=== PATIENT | male | born 1970 | race Caucasian/White ===

== ENCOUNTER 2016-08-04 22:59 | Observation (INO) | payer OTHER ==
[~2016-08-04] VITALS: Ht 180.3 cm; Wt 105.0 kg
[~2016-08-04 22:59] MED LIST: ASPI81TA82 PO; ATOR40TA PO; PROT40TA PO
[2016-08-04 23:03] VITALS: BP 141/99; PULSE 125; RESP 18; TEMP 98.6; O2SAT 92
[2016-08-04 23:29] LABS: AUTOMATED NEUTROPHIL # 4.9 TH/MM3 (1.8-7.7); BASOPHIL % 0.6 % (0.0-2.0); EOSINOPHIL # 0.1 TH/MM3 (0-0.4); EOSINOPHIL % 0.9 % (0.0-4.0); HEMATOCRIT 40.6 % (39.0-51.0); LYMPH % 16.6 % (9.0-44.0); LYMPHOCYTE # 1.2 TH/MM3 (1.0-4.8); MEAN CORPUSCULAR HEMOGLOBIN 31.3 PG (27.0-34.0); MEAN CORPUSCULAR HGB CONC 33.7 % (32.0-36.0); MONO % 13.6 % (0.0-8.0); NEUT % 68.3 % (16.0-70.0); PLATELET COUNT 196 TH/MM3 (150-450); RED BLOOD COUNT 4.37 MIL/MM3 (4.50-5.90); RED CELL DISTRIBUTION WIDTH 25.5 % (11.6-17.2); WHITE BLOOD COUNT 7.1 TH/MM3 (4.0-11.0)
[2016-08-04] MEDS ORDERED: PANT40TA3 PO (23:29)
[2016-08-04] MEDS ORDERED: SERO300T PO (23:29)
[2016-08-04] MEDS ORDERED: ASPI81CH CHEW (23:29)
[2016-08-04] MEDS ORDERED: ATOR40TA16 PO (23:29)
[2016-08-04] MEDS ORDERED: SODIUM CHLOR 0.9% 1000 ML INJ 1,000 ML IV ONE (23:30)
[2016-08-04] MEDS ORDERED: NITROGLYCERIN 2% OINT 1 GM PACKET TOPICAL ONE (23:30)
[2016-08-04 23:32] LABS: HEMO FLAGS AUTO DIFF
[2016-08-04 23:41] LABS: APTT (PATIENT) 26.7 SEC (24.3-30.1); PROTHROMBIN TIME - PATIENT 10.9 SEC (9.8-11.6)
[2016-08-04 23:42] LABS: ALT (GPT) 67 U/L (12-78); ANION GAP 12 MEQ/L (5-15); AST (GOT) 60 U/L (15-37); BICARBONATE 25.6 MEQ/L (21.0-32.0); BLOOD UREA NITROGEN 4 MG/DL (7-18); CHLORIDE 99 MEQ/L (98-107); GLOMERULAR FILTRATION RATE 83 ML/MIN (>89); MAGNESIUM 2.3 MG/DL (1.5-2.5); POTASSIUM 4.1 MEQ/L (3.5-5.1); SODIUM (NA) 137 MEQ/L (136-145)
[2016-08-04 23:52] LABS: ACETAMINOPHEN LESS THAN 2.0 MCG/ML (10.0-30.0); ALKALINE PHOSPHATASE 78 U/L (45-117); CREATINE KINASE 158 U/L (39-308); TOTAL BILIRUBIN ADULT 0.5 MG/DL (0.2-1.0)
[2016-08-04 23:54] LABS: AMPHETAMINE, URINE NEG (NEG); BARBITURATES, URINE NEG (NEG); COCAINE, URINE NEG (NEG)
[2016-08-05] VITALS (10 sets, daily range): BP systolic 114–150; BP diastolic 64–85; PULSE 72–115; RESP 18–22; TEMP 98–98.4; O2SAT 92–96
[2016-08-05 00:05] LABS: BACTERIA, URINE RARE /hpf; BLOOD, URINE TRACE (NEG); COMMENT (UR) CULT NOT INDICATED; CULTURE IF INDICATED CULT NOT INDICATED; GLUCOSE,URINE NEG (NEG); GRANULAR CAST, URINE 5 /lpf; HYALINE CAST, URINE 62 /lpf (RARE); KETONE, URINE TRACE mg/dL (NEG); MUCUS URINE FEW /lpf (OCC); NITRITE,URINE NEG (NEG); URINE COLOR YELLOW (YELLW/STRAW)
--- NOTE | 2016-08-05 00:18 | PD ---
HPI Chief Complaint: Chest Pain Time Seen by Provider: 23:04 Travel History International Travel<30 days: No Contact w/Intl Traveler<30days: No Traveled to known affect area: No History of Present Illness HPI The patient is a 45 year old male who presents to the [facility] emergency department with a history of being placed under a Lazo act prior to arrival. The patient reports that he took a picture of noose to his ex-. He reports that she works in law enforcement and have the police go out to his house to check on him. The patient reports that this time that he does not have any suicidal or homicidal ideations, however he does report having some chest pain. The patient reports that the chest pain awoke him from sound sleep at 3 AM. The patient reports that he has a history of coronary artery disease and had a prior myocardial infarction that was reportedly silent. He reports he last had a cardiac catheterization 3 years ago which showed evidence of a blockage that was not able to be stented due to the location. He is followed by Dr. Vaughn. He reports that he last had a stress test done 2 years ago. The patient reports that this chest pain is in the center of his chest, lightly over to the left side and radiates into the left arm. He reports that it lasts for a few minutes at a time. He reports that it is coming and going. He reports it is sharp in character. He reports having associated shortness of breath. He reports having nausea but no vomiting. He reports having intermittent diaphoresis. Regarding the patient's history of psychiatric disorder. He reports that he has been diagnosed with depression in the past. He denies taking any medication for this currently. He reports that he has been increasingly depressed recently. He reports that he has been Lazo acted 7 years ago. He denies any prior suicide attempts. On review of systems, the patient denies any recent fevers, cough, congestion,abdominal pain, diarrhea, urinary symptoms, or neurologic symptoms. [facility] Past Medical History Narrative Medical The patient's past medical history is significant for COPD, tobacco abuse, reportedly smoking 3 packs of cigarettes per day, history of diabetes mellitus, hypertension, hyperlipidemia that improved after gastric bypass, history of irritable bowel syndrome, history of coronary artery disease. Asthma: No Anxiety: Yes Depression: Yes Cancer: No Cardiac Catheterization: Yes Cardiovascular Problems: Yes (IN IN THE PAST, ANGINA EPISODES X 2) High Cholesterol: No COPD: Yes Diabetes: Yes (CONTROLLED W/DIET SINCE GASTRIC BYPASS) Patient Takes Glucophage: No Diminished Hearing: No Endocrine: Yes Gastrointestinal Disorders: Yes (HX OF GASTRIC BYPASS 2004) Genitourinary: No Headaches: No Hepatitis: No Hiatal Hernia: No Herniated Disk: Yes Hypertension: Yes Immune Disorder: No Musculoskeletal: Yes (CHRONIC NECK PAIN C4-C5, OSTEOARTHRITIS) Neurologic: Yes (NUMBNESS JAMAAL HANDS, SEIZURE 2 YEARS AGO) Psychiatric: No Reproductive: No Respiratory: Yes (COPD) Migraines: Yes Myocardial Infarction: Yes Seizures: Yes Sleep Apnea: No Thyroid Disease: No Tetanus Vaccination: > 5 Years Influenza Vaccination: Yes ?: Not Past Surgical History Narrative Surgical The patient's past surgical history is significant for a cardiac catheterization , history of gastric bypass. Abdominal Surgery: Yes (GASTRIC BYPASS 2004) AICD: No Joint Replacement: No Pacemaker: No Other Surgery: Yes (GASTRIC BYPASS 2001) Family History Family Myocardial Infarction: Yes Social History Alcohol Use: Yes (6 glasses of wine today) Tobacco Use: Yes (2 to 3 PPD) Substance Use: No Allergies-Medications (Allergen,Severity, Reaction): Coded Allergies: No Known Allergies (Verified , 06/12/15) Reported Meds & Prescriptions Reported Meds & Active Scripts Active Ventolin Hfa 18 GM Inh (Albuterol Sulfate) 90 Mcg/Act Aer 2 Puff INH Q6H PRN Medrol Dosepak (Methylprednisolone) 4 Mg Dspk 4 Mg PO DIRECTED Per Pharmacist direction Reported Pantoprazole (Pantoprazole Sodium) 40 Mg Tab 40 Mg PO DAILY Atorvastatin (Atorvastatin Calcium) 40 Mg Tab 40 Mg PO HS Aspirin 81 Mg Chew 81 Mg CHEW DAILY Seroquel (Quetiapine Fumarate) 300 Mg Tab 300 Mg PO HS Review of Systems Except as stated in HPI: all other systems reviewed are Neg General / Constitutional: No: Fever Eyes: No: Visual changes HENT: No: Headaches Cardiovascular: Positive: Chest Pain or Discomfort, Dyspnea on exertion Respiratory: Positive: Shortness of Breath, No: Cough Gastrointestinal: Positive: Nausea, No: Vomiting, Diarrhea, Abdominal Pain, Changes in Bowel Habits, Indigestion, Loss of Appetite Genitourinary: No: Dysuria Musculoskeletal: No: Pain Skin: No Rash Neurologic: No: Weakness, Focal Abnormalities, Change in Mentation, Slurred Speech, Sensory Disturbance Psychiatric: Positive: Depression, Mood Disorder Endocrine: No: Polydipsia Hematologic/Lymphatic: No: Easy Bruising Physical Exam Narrative General: The patient is a well-developed well-nourished male in no acute distress. Head and Neck exam: Head is normocephalic atraumatic. Eyes: EOMI, pupils are equal round and reactive to light. Nose: Midline septum with pink mucous membranes Mouth: Dentition unremarkable. Moist mucus membranes. Posterior oropharynx is not erythematous. No tonsillar hypertrophy. Uvula midline. Airway patent. Neck: No palpable lymphadenopathy. No nuchal rigidity. No thyromegaly. Cardiovascular: Regular rate and rhythm without murmurs, gallops, or rubs. No pulse deficit to the extremities and simultaneous auscultation and palpation of his radial artery. Lungs: Soft expiratory wheezes audible bilateral lung holley, no rhonchi, no crackles. Abdomen: Soft, without tenderness to palpation in all 4 quadrants of the abdomen. No guarding, rebound, or rigidity. Normal bowel sounds are audible. No tenderness on palpation of McBurney's point. Extremities: No clubbing, cyanosis, or edema. 2+ pulses in all 4 extremities. No calf tenderness on palpation. Back: No spinous process tenderness to palpation. No costovertebral angle tenderness to palpation. Neurologic Exam: Grossly nonfocal. Skin Exam: No rash noted. Intact skin that is warm and dry. Data Data Last Documented VS Vital Signs Date Time Temp Pulse Resp B/P Pulse Ox O2 Delivery O2 Flow Rate FiO2 08/05/16 01:08 83 18 150/79 94 Nasal Cannula 2 08/04/16 23:03 98.6 Orders Electrocardiogram (08/04/16 23:04) Complete Blood Count With Diff (08/04/16 23:04) Comprehensive Metabolic Panel (08/04/16 23:04) Creatine Kinase (Cpk) (08/04/16 23:04) Ckmb (Isoenzyme) Profile (08/04/16 23:04) Troponin I (08/04/16 23:04) B-Type Natriuretic Peptide (08/04/16 23:04) Prothrombin Time / Inr (Pt) (08/04/16 23:04) Act Partial Throm Time (Ptt) (08/04/16 23:04) Lipase (08/04/16 23:04) Urinalysis - C+S If Indicated (08/04/16 23:04) Westergren Sedimentation Rate (08/04/16 23:04) Magnesium (Mg) (08/04/16 23:04) Thyroid Stimulating Hormone (08/04/16 23:04) Chest, Single Ap (08/04/16 23:04) Iv Access Insert/Monitor (08/04/16 23:04) Ecg Monitoring (08/04/16 23:04) Oximetry (08/04/16 23:04) Drug Screen, Random Urine (08/04/16 23:04) Alcohol (Ethanol) (08/04/16 23:04) Salicylates (Aspirin) (08/04/16 23:04) Tylenol (Acetaminophen) (08/04/16 23:04) Nitroglycerin 2% Oint (Nitroglycerin 2% (08/04/16 23:30) Sodium Chlor 0.9% 1000 Ml Inj (Ns 1000 M (08/04/16 23:30) CKMB (08/04/16 23:15) CKMB% (08/04/16 23:15) Ct Pulmonary Angiogram (08/05/16 23:04) Iohexol 350 Inj (Omnipaque 350 Inj) (08/05/16 00:51) Albuterol-Ipratropium Neb (Duoneb Neb) (08/05/16 01:15) Admit Order (Ed Use Only) (08/05/16 01:59) Labs Laboratory Tests Test 08/04/16 08/04/16 23:15 23:35 Erythrocyte Sedimentation Rate 1 mm/hr Prothrombin Time 10.9 SEC Prothromb Time International 1.0 RATIO Ratio Activated Partial 26.7 SEC Thromboplast Time B-Type Natriuretic Peptide 6 PG/ML Salicylates Level 5.5 MG/DL White Blood Count 7.1 TH/MM3 Red Blood Count 4.37 MIL/MM3 Hemoglobin 13.7 GM/DL Hematocrit 40.6 % Mean Corpuscular Volume 93.0 FL Mean Corpuscular Hemoglobin 31.3 PG Mean Corpuscular Hemoglobin 33.7 % Concent Red Cell Distribution Width 25.5 % Platelet Count 196 TH/MM3 Mean Platelet Volume 7.9 FL Neutrophils (%) (Auto) 68.3 % Lymphocytes (%) (Auto) 16.6 % Monocytes (%) (Auto) 13.6 % Eosinophils (%) (Auto) 0.9 % Basophils (%) (Auto) 0.6 % Neutrophils # (Auto) 4.9 TH/MM3 Lymphocytes # (Auto) 1.2 TH/MM3 Monocytes # (Auto) 1.0 TH/MM3 Eosinophils # (Auto) 0.1 TH/MM3 Basophils # (Auto) 0.0 TH/MM3 CBC Comment AUTO DIFF Differential Comment AUTO DIFF CONFIRMED Acanthocytes OCC Sodium Level 137 MEQ/L Potassium Level 4.1 MEQ/L Chloride Level 99 MEQ/L Carbon Dioxide Level 25.6 MEQ/L Anion Gap 12 MEQ/L Blood Urea Nitrogen 4 MG/DL Creatinine 0.98 MG/DL Estimat Glomerular Filtration 83 ML/MIN Rate Random Glucose 132 MG/DL Calcium Level 8.6 MG/DL Magnesium Level 2.3 MG/DL Total Bilirubin 0.5 MG/DL Aspartate Amino Transf 60 U/L (AST/SGOT) Alanine Aminotransferase 67 U/L (ALT/SGPT) Alkaline Phosphatase 78 U/L Total Creatine Kinase 158 U/L Creatine Kinase MB 1.0 NG/ML Troponin I LESS THAN 0.02 NG/ML Total Protein 7.4 GM/DL Albumin 4.4 GM/DL Lipase 199 U/L Thyroid Stimulating Hormone 2.430 uIU/ML 3rd Gen Acetaminophen Level LESS THAN 2.0 MCG/ML Ethyl Alcohol Level 300 MG/DL Urine Opiates Screen NEG Urine Barbiturates Screen NEG Urine Amphetamines Screen NEG Urine Benzodiazepines Screen NEG Urine Cocaine Screen NEG Urine Cannabinoids Screen NEG Urine Color YELLOW Urine Turbidity HAZY Urine pH 5.0 Urine Specific [place] 1.021 Urine Protein 30 mg/dL Urine Glucose (UA) NEG mg/dL Urine Ketones TRACE mg/dL Urine Occult Blood TRACE Urine Nitrite NEG Urine Bilirubin NEG Urine Urobilinogen LESS THAN 2.0 MG/DL Urine Leukocyte Esterase NEG Urine RBC 1 /hpf Urine WBC LESS THAN 1 /hpf Urine Bacteria RARE /hpf Urine Hyaline Casts 62 /lpf Urine Granular Casts 5 /lpf Urine Mucus FEW /lpf Microscopic Urinalysis Comment CULT NOT INDICATED MDM Medical Decision Making Medical Screen Exam Complete: Yes Emergency Medical Condition: Yes Medical Record Reviewed: Yes Interpretation(s) Last Impressions Lower Extremity Ultrasound 08/05/16 0000 Signed Impressions: Service Date/Time: Friday, August 05, 2016 10:45 - CONCLUSION: Normal examination. Alberto Loyola MD Chest X-Ray 08/04/16 [id number] Signed Impressions: Service Date/Time: Thursday, August 04, 2016 23:41 - CONCLUSION: 1. No acute cardiopulmonary disease. Ousmane Renteria MD Differential Diagnosis Acute coronary syndrome, versus acid reflux, versus costochondritis, versus pleurisy, versus pneumonia, versus pneumothorax, versus pulmonary embolism Narrative Course During the course of the patients emergency department visit, the patients history, examination, and differential diagnosis were reviewed with the patient. The patient had IV access obtained and blood work sent for analysis. The patient was placed on a security monitor with oximetry and blood pressure monitoring. An EKG was done on arrival. The patient's EKG reveals a sinus tachycardia with a heart rate of 137, left anterior fascicular block, no acute ST segment elevation. QRS duration is 82 ms, QTC is 378 ms. The patient was initially provided measure) 1 inch the chest wall, normal saline 1 L IV fluid bolus. The patient was given a DuoNeb 1. The patient was given 162 mg of aspirin by mouth 1 prior to arrival by ambulance services. The patients laboratory studies were reviewed and remarkable for a white count of 7.1, hemoglobin 13.7, platelets 196 with 13.6 monocytes, sedimentation rate is 1, CMP is remarkable for a glucose of 132, AST 60, CPK 158, troponin I less than 0.02, lipase 199, TSH 2.43, BNP is 6, PT PTT within normal limits. Urinalysis shows trace ketones, trace occult blood, 1 rbc, less than 1 wbc. Alcohol level is 300 Radiology studies were reviewed and remarkable for a chest x-ray that shows no acute abnormality. Initially, the plan was to admit the patient to the chest pain center for rule out serial cardiac enzyme protocol and consideration of stress testing as it has been approximately 2 years since his last stress test, however the patient was noted to have his pulse oximetry dipped down into the upper 80s while on supplemental oxygen. The patient denies using supplemental oxygen at home. When his supplemental oxygen was removed the patient's O2 saturation went down to 86%. The patient will be admitted to the medical service for continued evaluation and treatment. The patient's chest pain may be partly related to a COPD exacerbation. The patient was given Solu-Medrol 125 mg IV, an additional DuoNeb. He was continued on 3 L nasal cannula O2. The patients results were discussed with the patient, including the plan of care. I explained that further testing and/ or monitoring is indicated based on the patients history, examination, and/ or laboratory findings. Therefore, I recommended admission for additional evaluation. The patient expressed understanding and was agreeable with this plan. The patient was admitted to the hospital in stable condition and [facility] Physician Communication Physician Communication The patient's case was discussed with Alberto Harvey who did agree to admit the patient for further evaluation and treatment at this time. Diagnosis Primary Impression: Chest pain, rule out acute myocardial infarction Additional Impressions: COPD exacerbation Hypoxemia Admitting Information Admitting Physician Requests: Admit Scripts Albuterol 18 GM Inh (Ventolin Hfa 18 GM Inh)90 Mcg/Act Aer2 Puff INH Q6H PRN ( SHORTNESS OF BREATH) #1 INHALER Ref 0 Prov:Chaitanya Lynn MD 08/05/16 Methylprednisolone Dosepak (Medrol Dosepak)4 Mg Dspk4 Mg PO DIRECTED #1 DSPK Ref 0 Per Pharmacist direction Prov:Chaitanya Lynn MD 08/05/16 Faiza Swenson MD August 05, 2016 00:18
--- NOTE | 2016-08-05 00:19 | RADRPT ---
EXAM DATE/TIME: 08/04/2016 23:41 [facility] COMPARISON: CHEST SINGLE AP, June 12, 2015, 22:51. INDICATIONS : Chest pain. MEDICAL HISTORY : None. SURGICAL HISTORY : None. ENCOUNTER: Initial ACUITY: 1 day PAIN SCORE: 7/10 LOCATION: Bilateral chest FINDINGS: A single view of the chest demonstrates the lungs to be symmetrically aerated without evidence of mas s, infiltrate or effusion. The cardiomediastinal contours are unremarkable. Osseous structures are intact. CONCLUSION: 1. No acute cardiopulmonary disease. Ousmane Renteria MD on August 05, 2016 at 0:17 Board Certified Radiologist. This report was verified electronically.
[2016-08-05] MEDS ORDERED: IOHEXOL 350 MG/ML 10 ML VIAL (for RAD DIAG) IV ONE (00:51)
[2016-08-05] MEDS ORDERED: RESP: ALBUTEROL 2.5 MG/IPRATROPIUM 0.5 MG NEB (SCH) NEB ONE (01:15)
[2016-08-05 01:43] LABS: ACANTHOCYTES OCC (NORMAL); SCAN/DIFF AUTO DIFF CONFIRMED
--- NOTE | 2016-08-05 01:44 | RADRPT ---
EXAM DATE/TIME: 08/05/2016 00:48 [facility] COMPARISON: No previous studies available for comparison. INDICATIONS : Chest pain and short of breath starting this morning. IV CONTRAST: 75 cc Omnipaque 350 (iohexol) IV RADIATION DOSE: 23.32 CTDIvol (mGy) MEDICAL HISTORY : Seizures. Myocardial infarction. Hypertension. SURGICAL HISTORY : Gastric bypass. Cardiac catherization. ENCOUNTER: Initial ACUITY: 1 day PAIN SCALE: 7/10 LOCATION: chest TECHNIQUE: Volumetric scanning of the chest was performed using a pulmonary embolism protocol MIP images were re constructed. Using automated exposure control and adjustment of the mA and/or kV according to patien t size, radiation dose was kept as low as reasonably achievable to obtain optimal diagnostic quality images. FINDINGS: Examination of the pulmonary vasculature demonstrates an equivocal abnormality involving the left low er lobe and lingular pulmonary artery. The contrast bolus is suboptimal limiting evaluation. No large central embolism is identified. Examination of the lung holley demonstrates no evidence of pulmonary nodule. No pleural fluid is iden tified. Examination of the mediastinum demonstrates no abnormally enlarged lymph nodes by CT criteria . No axillary or hilar abnormalities are identified. Coronary artery calcifications are present. Ther e is a nodule in the left adrenal gland likely reflecting adenoma measuring 10 mm. There is decreased density of the liver with respect to the spleen compatible with fatty infiltration. The spleen is un remarkable. A staple line is present in the stomach. CONCLUSION: 1. Limited evaluation secondary to the contrast bolus. There is equivocal segmental thrombus involvin g the lingula and left lower lobe pulmonary artery. Pulmonary embolism is not excluded. Ousmane Renteria MD on August 05, 2016 at 1:33 Board Certified Radiologist. This report was verified electronically.
[2016-08-05] MEDS ORDERED: methylPREDNISolone SOD SUCC 125 MG/2 ML VIAL IV PUSH ONE (02:30)
[2016-08-05] MEDS: RESP: ALBUTEROL 2.5 MG/IPRATROPIUM 0.5 MG NEB (SCH) INH ×5 (03:07→15:25)
[2016-08-05] MEDS ORDERED: RESP: ALBUTEROL 2.5 MG/3 ML NEB (PRN) INH (03:45)
[2016-08-05] MEDS ORDERED: cloNIDine HCL 0.1 MG TAB PO PRN (03:45)
[2016-08-05] MEDS ORDERED: SODIUM CHLORIDE 0.9% FLUSH 10 ML FLUSH IV FLUSH PRN (03:45)
[2016-08-05] MEDS ORDERED: LORazepam 2 MG/ML VIAL IV PUSH PRN ×4 (03:45)
[2016-08-05] MEDS ORDERED: NITROGLYCERIN 0.4 MG SL 25 TABS/BTL SL PRN (03:45)
[2016-08-05] MEDS ORDERED: methylPREDNISolone SOD SUCC 125 MG/2 ML VIAL IVP SCH (03:45)
[2016-08-05] MEDS ORDERED: FLUMAZENIL 0.5 MG/5 ML VIAL IV PUSH PRN (03:45)
[2016-08-05] MEDS ORDERED: ACETAMINOPHEN 500 MG CPLT PO PRN (03:45)
[2016-08-05] MEDS ORDERED: ENOXAPARIN SODIUM 40 MG/0.4 ML SYRINGE SQ SCH (05:00)
[2016-08-05] MEDS: NITROGLYCERIN 2% OINT 1 GM PACKET TOP SCH ×2 (05:48→11:07)
[2016-08-05] MEDS ORDERED: SODIUM CHLORIDE 0.9% FLUSH 10 ML FLUSH IV FLUSH SCH (09:00)
[2016-08-05] MEDS ORDERED: THIAMINE HCL 100 MG TAB PO SCH (09:00)
[2016-08-05] MEDS ORDERED: FOLIC ACID 1 MG TAB PO SCH (09:00)
[2016-08-05] MEDS ORDERED: FAMOTIDINE 20 MG TAB PO SCH (09:00)
[2016-08-05] MEDS ORDERED: ASPIRIN 325 MG TAB PO SCH (09:00)
[2016-08-05] MEDS ORDERED: MULTIVITAMINS/MINERALS THERAPEUTIC TAB PO SCH (09:00)
--- NOTE | 2016-08-05 09:14 | MH ---
cc: GARRY MAN MD DATE OF ADMISSION: 08/05/2016 DATE OF : 1970 CHIEF COMPLAINT Chest pain, Lazo Act for possible suicidal or homicidal ideation. TRAVEL IN THE LAST 30 DAYS None. HISTORY OF PRESENT ILLNESS This is a 45-year-old male who began having chest pain this past a.m. According to the record and the patient he was Lazo Act'd upon arrival to the hospital. He took a picture of a noose and sent it to his estranged . They have been for approximately two weeks. The patient does state that the marriage has had a [address] but he has been to her for 22 years. He does have three grown children with his present . The patient states that he has not been eating in the past week but he is drinking daily. He is under increased stress and awoke at approximately 3:00 a.m. with midsternal chest pain. The chest pain radiates into the left arm and into his back. He states that the pain is a sharp stabbing pain and is worse with inspiration. The patient does have known COPD with cough. He is a daily smoker. At the time of his chest pain the patient did note some shortness of breath but denies any nausea or vomiting. No diaphoresis. The patient denies any headache. No recent weight gain or weight loss. Denies any dysuria or any problems with his kidneys or bowels. No diarrhea or constipation. He does state that he has not had a bowel movement in several days but has not been eating well. On admission to the hospital the patient was given Ativan IV due to his shakiness. He currently is calm and is able to answer simple questions appropriately. According to the record the patient has had coronary artery disease, multiple heart caths and stress tests between 2 and 3 years ago. PAST MEDICAL HISTORY 1. Coronary artery disease. 2. OH in the past. 3. Previous angina episodes. 4. Anxiety. 5. Depression. 6. COPD. 7. Diabetes mellitus type 2. 8. Herniated disc. 9. Hypertension. 10. Osteoarthritis. 11. Chronic neck pain, C4-C5. 12. Seizures. PAST SURGICAL HISTORY 1. Gastric bypass. 2. Cardiac caths, multiple. SOCIAL HISTORY The patient is currently from his for approximately two weeks. He is living in the home. He has three grown children. Positive for tobacco use, 2-3 packs a day. Alcohol use more pertinent recently and had been drinking wine when he came into the hospital. Denies any illicit drug use. ALLERGIES No known. MEDICATIONS Medications reported: 1. Pantoprazole. 2. Atorvastatin. 3. Aspirin. 4. Seroquel. FAMILY HISTORY Heart disease. REVIEW OF SYSTEMS A 12-point review was done. Positives are included in the HPI which include chest pain, COPD, cough, some nausea at the time of the chest pain, ETO abuse, shortness of breath, shakiness possibly secondary to the alcohol, increased stress disorders. Otherwise systems are negative or unremarkable. PHYSICAL EXAMINATION VITAL SIGNS: Temperature 98.6, pulse 78, respirations 22, blood pressure 125/75. On arrival at the emergency room pulse rate was 125, respirations 18, blood pressure 141/99, O2 sat was 92. The patient was placed on 2 liters nasal cannula and is now on 3 liters. GENERAL: A well-nourished white male who looks older than his stated age resting in the bed. He is cooperative and answering questions appropriately. SKIN: [place]. Mucous membranes warm and dry. HEENT: Atraumatic, normocephalic. PERRLA at 3 mm. [place] mucous membranes. NECK: Supple. Midline trachea. HEART: Heart sounds S1, S2, regular rate and rhythm. No murmurs, rubs or gallops. He has no pedal edema and his pulses are intact bilaterally. PULMONARY: He does have some diminished breath sounds anteriorly and posteriorly but no wheezes or rhonchi. He does have some decreased breath sounds more so on the left lower lobe. ABDOMEN: Round, soft, nontender, nondistended. Active bowel sounds in all four quadrants. EXTREMITIES: He moves his extremities with purpose. He has equal hand photographic spotter. No clubbing. No cyanosis. NEUROLOGIC: He is awake, answers questions appropriately. Speech is clear. PSYCHIATRIC: Current mood is flat affect but appropriate to questions. LABORATORY WBC count 7.1, RBC 4.37, hemoglobin 13.7, hematocrit 40.6, platelet count 196, RDW 25.5, abnormal monocyte percentage count 13.6. Sed rate is 1. INR is 1. Sodium 137, potassium 4.1, chloride 99, carbon dioxide 25.6, amnion gap 12, BUN 4, creatinine 0.98, GFR 83, random glucose 132, AST 60, troponin less than 0.2 x2, BNP 6, TSH 2.430, lipase 199, albumin 4.4, total protein 7.4. Urine is yellow, hazy, pH 5, specific gravity 1.021, protein 30, negative glucose, trace ketones, trace occult blood. Negative for nitrites, bilirubin and leukocyte esterase. IMAGING Chest x-ray: No acute pulmonary cardiopulmonary disease. CT angiography shows limited evaluation secondary to contrast bolus, equivocal segmental thrombus involving the left lower lobe pulmonary artery. Pulmonary embolism cannot be excluded. ASSESSMENT 1. Chest pain, rule out OH/cardiac event, possible pulmonary embolism. 2. Tachycardia. 3. Alcohol abuse and tobacco abuse and dependence. 4. Depression and anxiety with possible suicidal or homicidal ideations. 5. COPD. 6. Diabetes mellitus type 2, with mild uncontrolled blood sugars. PLAN 1. Admit initially for observation. 2. Vital signs q.4h. and as warranted. 3. The patient will have constant ECG monitoring for his erratic heart rate. This tachycardia could be secondary to his stress versus any cardiac event going on with him. 4. The patient is on Lazo Act so he has one-on-one observation personnel with him. He is being evaluated per psychiatry this a.m. 5. On admission the patient had original labs drawn which included CT pulmonary angiogram. Nitroglycerin one inch was placed on his chest. He received methylprednisolone 125 mg IV and DuoNeb treatments. The patient was given Ativan IV x1. PRN blood pressure medication. Catapres p.o. to be given. The patient was placed on multivitamins. 6. Accu-Cheks a.c. and h.s. 7. Neuro-checks q.4h. 8. Seizure precautions/alcohol withdrawal protocol has been initiated. 9. The patient is now n.p.o. except for meds. 10. Cardiology has been consulted for their expert opinion for possible further testing. 11. The patient is full code, full aggressive care. 12. We will follow his needs. Dictated by: KARYN Faulkner MD VAZQUEZ Sandoval/ANTONY /8:14 AM /9:14 AM pt is seen & Examined d/w PT ariella Fuentes d/w Dr schuster , ? CT chest finding , clinical suspicion for PE is low Venous doppler Neg for DVT No need for Anticoagulation No further cardiac w/u rec by card counselled pt against smoking cigarettes & drinking Alcohol Risks of smoking were d/w in detail, Pt verbalized understanding cont current tx psych input appreciated /BA is lifted resume feeding d/c home later today see orders see MRS f/u pcp & card d/w RN AMRITAD
[2016-08-05] MEDS ORDERED: ENOXAPARIN SODIUM 60 MG/0.6 ML SYRINGE SQ ONE (10:15)
[2016-08-05] MEDS: methylPREDNISolone SOD SUCC 125 MG/2 ML VIAL IVP SCH ×2 (11:07→14:00)
--- NOTE | 2016-08-05 11:07 | RADRPT ---
EXAM DATE/TIME: 08/05/2016 10:45 [facility] COMPARISON: No previous studies available for comparison. INDICATIONS : Shortness of breath. MEDICAL HISTORY : Seizures. Myocardial infarction. Hypertension. SURGICAL HISTORY : Gastric bypass. Cardiac catherization. ENCOUNTER: Initial ACUITY: 1 day PAIN SCORE: 6/10 LOCATION: Bilateral leg. TECHNIQUE: Venous ultrasound of the left and right leg was performed from the inguinal ligament to the proximal calf. Real-time, color Doppler and spectral tracing, compression and augmentation techniques were us ed. FINDINGS: RIGHT LEG: There is normal compressibility of the deep venous system from the inguinal region to the proximal ca lf. No echogenic clot is seen in the lumen of the common femoral, femoral, popliteal, and posterior tibial veins. There is a normal response of the venous system to proximal and distal augmentation an d respiration. LEFT LEG: There is normal compressibility of the deep venous system from the inguinal region to the proximal ca lf. No echogenic clot is seen in the lumen of the common femoral, femoral, popliteal, and posterior tibial veins. There is a normal response of the venous system to proximal and distal augmentation an d respiration. CONCLUSION: Normal examination. Alberto Loyola MD on August 05, 2016 at 11:04 Board Certified Radiologist. This report was verified electronically.
--- NOTE | 2016-08-05 11:47 | MB ---
cc: ARTHUR RAE M.D. DATE OF CONSULTATION: 08/05/2016 REASON FOR CONSULTATION Evaluation of chest pain. HISTORY OF PRESENT ILLNESS Colin Espinosa is a 45-year-old man followed by Dr. Acevedo of my practice. The patient has a longstanding history of a three pack per day smoking with COPD and coronary disease, is Lazo Acted and along the way complains of chest pain. The patient has been having marital problems and he came in for possible suicide or homicidal ideation, however, he has been having sharp pain in his chest, worse with inspiration. It is in his back, started between his scapula, position does not affect it. The pain is definitely worse with deep breath and it is sharp. Denies any leg pain or swelling. Denies any long car rides or other risk factors for DVT. He has had a CTA that is now indeterminate for pulmonary embolism. PAST MEDICAL HISTORY Past medical history includes: 1. Coronary artery disease. 2. He had a previous catheterization January 28, 2013 showing a stenosis of the proximal mid LAD and felt to be about 50% by ultrasound. 3. He has had a gastric bypass in 2005. 4. He has had a loop recorder implantation. 5. Past alcohol issues. 6. COPD. 7. Depression, 8. Hyperlipidemia. 9. Hypertension. 10. Sleep apnea. ALLERGIES None known. FAMILY HISTORY Positive for heart disease in his brother who had a heart attack and is . There is also a history of heart disease in the father and mother. SOCIAL HISTORY Currently smoking three packs a day. REVIEW OF SYSTEMS He is depressed. PHYSICAL EXAMINATION GENERAL: Physical exam reveals an obese white male, in no acute distress. VITAL SIGNS: Charted. HEENT: Exam unremarkable. NECK: No JVD, no bruits. CHEST: Chest shows diminished breath sounds with a few scattered wheezes. CARDIAC: S1-S2, regular rate and rhythm. No murmurs, gallops. ABDOMEN: Soft, nontender. No masses or splenomegaly. EXTREMITIES: No clubbing, cyanosis or edema. Pulses are intact. No calf pain or swelling to suggest DVT. EKG Shows sinus tachycardia, left axis deviation, poor R-wave progression, low voltage throughout. DATA Troponins x2 are negative. CTA results are charted. Creatinine is 0.98. TSH is normal. Hematocrit 40.6. IMPRESSION/PLAN A 45-year-old male with sharp pleuritic chest pain. This is compatible with a diagnosis of possible pulmonary embolism. The problem is his CTA is inconclusive. I have spoken with Dr. Lynn and I just now spoke to Dr. Loyola. A VQ scan is likely to be indeterminate or low prob and will not particularly be helpful here, after discussing this with Dr. Loyola, it is felt the best approach might be to get a venous Doppler study, if this is positive, then go ahead and treat him as a pulmonary embolism. He said a pulmonary angiogram would likely be inconclusive as well, that would be another option, but we decided against that. Plan therefore is to increase his Lovenox to full strength 100 mg q. 12 hours and get venous Doppler studies. If these are positive then go ahead and treat this as a pulmonary embolism. If these are negative then we are most likely dealing with musculoskeletal chest pain. MD CLARK Joel/KIMO /10:18 AM /11:25 AM
--- NOTE | 2016-08-05 13:11 | PD.CONS ---
Provisional Diagnosis Admission Date August 05, 2016 at 02:01 [place] I. Alcohol-induced mood disorder, alcohol use disorder, history of depression [place] II. Deferred [place] III. COPD, DM, chronic pain, NE, seizures [place] IV. Conflict with [place] V. 55 History of Present Illness Service Psychiatry Consult Requested By Primary Care Physician Gladys SO The patient is a 45-year-old man, domiciled alone in [place], employed, , but , psychiatric history of depression, alcohol- induced mood disorder, alcohol use disorder, 1 previous psychiatric hospitalizations, no previous suicidal attempts, he is on Seroquel 200 mg prescribed by PCP for insomnia, medical history of COPD, DM, HTN, chronic pain, previous MIs, who presents to the [facility] emergency department with a history of being placed under a Lazo act prior to arrival. The patient reports that he took a picture of noose to his ex-. He reports that she works in law enforcement and have the police go out to his house to check on him. The patient reports that this time that he does not have any suicidal or homicidal ideations, however he does report having some chest pain. Patient stated that he was drunk at the moment of the Lazo act. BAL was 300. At the moment of psychiatric evaluation patient reports good mood, he denies depressive symptoms, he denies anxiety, he denies perri or psychosis. Patient is logical, coherent and relevant. Clinically sober. Denies suicidal or homicidal ideation, denies visual and auditory hallucinations. Patient is fully oriented 3, no attention deficit, no fluctuation of consciousness, no agitation or aggressive behavior reported or observed. He reports the use of alcohol, about a bottle of wine, denies the use of illicit drugs. Review of Systems Constitutional: DENIES: Diaphoretic episodes, Fatigue, Fever, Weight gain, Weight loss, Chills, Dizziness, Change in appetite, Night Sweats Endocrine: DENIES: Heat/cold intolerance, Polydipsia, Polyuria, Polyphagia Eyes: DENIES: Blurred vision, Diplopia, Eye inflammation, Eye pain, Vision loss , Photosensitivity, Double Vision Ears, nose, mouth, throat: DENIES: Tinnitus, Hearing loss, Vertigo, Nasal discharge, Oral lesions, Throat pain, Hoarseness, Ear Pain, Running Nose, Epistaxis, Sinus Pain, Toothache, Odynophagia Respiratory: DENIES: Apneas, Cough, Snoring, Wheezing, Hemoptysis, Sputum production, Shortness of breath Cardiovascular: COMPLAINS OF: Chest pain, DENIES: Palpitations, Syncope, Dyspnea on Exertion, PND, Lower Extremity Edema, Orthopnea, Claudication Gastrointestinal: DENIES: Abdominal pain, Black stools, Bloody stools, Constipation, Diarrhea, Nausea, Vomiting, Difficulty Swallowing, Anorexia Genitourinary: DENIES: Sexual dysfunction, Urinary frequency, Urinary incontinence, Urgency, Hematuria, Dysuria, Nocturia, Penile Discharge, Testicular Pain, Testicular Swelling Integumentary: DENIES: Abnormal pigmentation, Nail changes, Pruritus, Rash Hematologic/lymphatic: DENIES: Bruising, Lymphadenopathy Immunologic/allergic: DENIES: Eczema, Urticaria Neurologic: DENIES: Abnormal gait, Headache, Localized weakness, Paresthesias, Seizures, Speech Problems, Tremor, Poor Balance Past Family Social History Coded Allergies: No Known Allergies (Verified , 06/12/15) Reported Medications Pantoprazole 40 Mg Tab40 Mg PO DAILY #30 TAB Ref 0 08/04/16 Atorvastatin 40 Mg Tab40 Mg PO HS #30 TAB Ref 0 08/04/16 Aspirin 81 Mg Chew81 Mg CHEW DAILY Ref 0 08/04/16 Quetiapine (Seroquel)300 Mg Qzd250 Mg PO HS #30 TAB Ref 0 08/04/16 Current Medications Medications (Trade) Dose Ordered Sig/Deana Route Start Time Stop Time Status Last Admin (NS Flush) 2 ml BID IV FLUSH 08/05/16 09:00 08/05/16 11:09 (NS Flush) 2 ml UNSCH PRN IV FLUSH 08/05/16 03:45 (Aspirin) 325 mg DAILY PO 08/05/16 09:00 08/05/16 11:09 (Nitroglycerin 2% Oint) 1 inch Q6HR TOP 08/05/16 06:00 08/05/16 11:07 (Nitrostat Sl) 0.4 mg Q5M PRN SL 08/05/16 03:45 (Tylenol) 500 mg Q4H PRN PO 08/05/16 03:45 08/05/16 11:56 (Pepcid) 20 mg BID PO 08/05/16 09:00 08/05/16 11:08 (Folate) 1 mg DAILY PO 08/05/16 09:00 08/10/16 08:59 08/05/16 11:09 (Vitamin B1) 100 mg DAILY PO 08/05/16 09:00 08/05/16 11:07 (Theragran M Tab) 1 tab DAILY PO 08/05/16 09:00 08/10/16 08:59 08/05/16 11:08 (Catapres) 0.1 mg Q8HR PRN PO 08/05/16 03:45 (Romazicon Inj) 0.2 mg Q1M PRN IV PUSH 08/05/16 03:45 (Ativan Inj) 1 mg Q4H PRN IV PUSH 08/05/16 03:45 08/05/16 06:03 (Ativan Inj) 2 mg Q2H PRN IV PUSH 08/05/16 03:45 (Ativan Inj) 2 mg Q1H PRN IV PUSH 08/05/16 03:45 (Ativan Inj) 2 mg Q15M PRN IV PUSH 08/05/16 03:45 (SoluMEDROL INJ) 60 mg Q6H IVP 08/05/16 08:00 08/05/16 11:07 (Lovenox Inj) 100 mg Q12H SQ 08/05/16 23:00 Family History Patient denies psychiatric family history Social History Patient was born and raised in [place], he lives in [place] alone, is employed in [employer], but , his highest level of education is high school Patient's Strengths (min. 2) Verbal communication Physical Exam A physical exam patient does not present any EPS, no tremors, no withdrawal symptoms, no stiffness, no psychomotor agitation or retardation, no gait disturbances Vital Signs Vital Signs Date Time Temp Pulse Resp B/P Pulse Ox O2 Delivery O2 Flow Rate FiO2 08/05/16 09:28 98.0 113 21 146/73 96 08/05/16 08:30 21 08/05/16 03:57 Nasal Cannula 3.00 Lab Results BAL 300, toxicology negative Mental Status Examination Appearance man, [facility], good hygiene, age appearing,, cooperative Speech: Unremarkable Orientation: x3 Memory: Unremarkable Thought Process: Logical Thought Content: Unremarkable Hallucination Type: None Suicidal Ideation: No Homicidal Ideation: No Previous Homicide Attempts: No Judgment: WNL Affect: Good Affect if Inappropriate: Flat Mood: Appropriate Motor Activity: Normal gait Assessment & Plan Problem List: (1) Alcohol abuse with alcohol-induced mood disorder Assessment & Plan: On psychiatric evaluation today the patient does not present any concerning, acute, significant or objective or subjective symptomatology of depression, anxiety, perri or psychosis. Patient denies suicidal or homicidal ideation, he denies visual and auditory hallucinations. Patient is logical, coherent and relevant in his conversation. Oriented 3, no gross cognitive impairment present. Recent suicidal statements seems to be more related with marital conflicts, manipulative behavior, aggravated by acute alcohol intoxication. Patient is increase over. Patient does not meet criteria for psychiatric admission at this moment. She will benefit of an acute detox with comprehensive rehabilitation program. Extensive psycho education, support and motivation provided. CIWA protocol recommended. We'll continue Seroquel 200 mg at night as prescribed outpatient. Lazo act will be lifted. ICD Code: F10.14 Assessment & Plan Estimated LOS: Abdi Molina MD August 05, 2016 13:11
--- NOTE | 2016-08-05 14:16 | HHI.PR ---
Objective Objective Results - Vital Signs Date Time Temp Pulse Resp B/P Pulse Ox O2 Delivery O2 Flow Rate FiO2 08/05/16 13:26 98.4 89 18 130/74 95 08/05/16 09:28 98.0 113 21 146/73 96 08/05/16 08:30 92 21 08/05/16 06:15 78 22 125/75 95 08/05/16 03:57 95 Nasal Cannula 3.00 08/05/16 03:26 87 18 116/68 95 Nasal Cannula 3.5 08/05/16 02:04 115 18 114/64 92 Nasal Cannula 2 08/05/16 01:08 83 18 150/79 94 Nasal Cannula 2 08/04/16 23:03 98.6 125 18 141/99 92 Result Diagram: 08/04/16231408/04/162314 Other Results Laboratory Tests Test 08/04/16 08/04/16 08/05/16 08/05/16 23:15 23:35 05:10 09:56 Erythrocyte Sedimentation Rate 1 Prothrombin Time 10.9 Prothromb Time International 1.0 Ratio Activated Partial 26.7 Thromboplast Time B-Type Natriuretic Peptide 6 Salicylates Level 5.5 White Blood Count 7.1 Red Blood Count 4.37 Hemoglobin 13.7 Hematocrit 40.6 Mean Corpuscular Volume 93.0 Mean Corpuscular Hemoglobin 31.3 Mean Corpuscular Hemoglobin 33.7 Concent Red Cell Distribution Width 25.5 Platelet Count 196 Mean Platelet Volume 7.9 Neutrophils (%) (Auto) 68.3 Lymphocytes (%) (Auto) 16.6 Monocytes (%) (Auto) 13.6 Eosinophils (%) (Auto) 0.9 Basophils (%) (Auto) 0.6 Neutrophils # (Auto) 4.9 Lymphocytes # (Auto) 1.2 Monocytes # (Auto) 1.0 Eosinophils # (Auto) 0.1 Basophils # (Auto) 0.0 CBC Comment AUTO DIFF Differential Comment AUTO DIFF CONFIRMED Acanthocytes OCC Sodium Level 137 Potassium Level 4.1 Chloride Level 99 Carbon Dioxide Level 25.6 Anion Gap 12 Blood Urea Nitrogen 4 Creatinine 0.98 Estimat Glomerular Filtration 83 Rate Random Glucose 132 Calcium Level 8.6 Magnesium Level 2.3 Total Bilirubin 0.5 Aspartate Amino Transf 60 (AST/SGOT) Alanine Aminotransferase 67 (ALT/SGPT) Alkaline Phosphatase 78 Total Creatine Kinase 158 Creatine Kinase MB 1.0 Troponin I LESS THAN 0.02 LESS THAN 0.02 LESS THAN 0.02 Total Protein 7.4 Albumin 4.4 Lipase 199 Thyroid Stimulating Hormone 2.430 3rd Gen Acetaminophen Level LESS THAN 2.0 Ethyl Alcohol Level 300 Urine Opiates Screen NEG Urine Barbiturates Screen NEG Urine Amphetamines Screen NEG Urine Benzodiazepines Screen NEG Urine Cocaine Screen NEG Urine Cannabinoids Screen NEG Urine Color YELLOW Urine Turbidity HAZY Urine pH 5.0 Urine Specific Boyce 1.021 Urine Protein 30 Urine Glucose (UA) NEG Urine Ketones TRACE Urine Occult Blood TRACE Urine Nitrite NEG Urine Bilirubin NEG Urine Urobilinogen LESS THAN 2.0 Urine Leukocyte Esterase NEG Urine RBC 1 Urine WBC LESS THAN 1 Urine Bacteria RARE Urine Hyaline Casts 62 Urine Granular Casts 5 Urine Mucus FEW Microscopic Urinalysis Comment CULT NOT INDICATED Physical Exam Physical Exam pt is seen & Examined d/w PT ariella Fuentes d/w Dr schuster , ? CT chest finding , clinical suspicion for PE is low Venous doppler Neg for DVT No need for Anticoagulation No further cardiac w/u rec by card counselled pt against smoking cigarettes & drinking Alcohol Risks of smoking were d/w in detail, Pt verbalized understanding cont current tx psych input appreciated /BA is lifted resume feeding d/c home later today see orders see MRS f/u pcp & card d/w Chaitanya Banerjee MD August 05, 2016 14:16
[2016-08-05] MEDS ORDERED: VENTAER INH (14:24)
[2016-08-05] MEDS ORDERED: MEDR4PAK PO (14:24)
--- NOTE | 2016-08-05 16:39 | EKG ---
Date Performed: 08/05/2016 Time Performed: 09:49:56 PTAGE: 45 years EKG: SINUS TACHYCARDIA LOW QRS VOLTAGE ANTERIOR MYOCARDIAL INFARCTION POSSIBLE INFERIOR MYOCARDI AL INFARCTION ABNORMAL ECG PREVIOUS TRACING : 08/05/2016 05.07 No significant change from previous tracing noted. DOCTOR: Yuriy Maldonado Interpretating Date/Time 08/05/2016 16:37:49
--- NOTE | 2016-08-05 18:26 | EKG ---
Date Performed: 08/05/2016 Time Performed: 12:18:49 PTAGE: 45 years EKG: Sinus rhythm LOW QRS VOLTAGE POSSIBLE ANTERIOR MYOCARDIAL INFARCTION POSSIBLE INFERIOR MYOCARDIAL INFARCTION ABNO RMAL ECG NO PREVIOUS TRACING DOCTOR: Yuriy Maldonado Interpretating Date/Time 08/05/2016 18:24:31
--- NOTE | 2016-08-05 22:44 | EKG ---
Date Performed: 08/05/2016 Time Performed: 05:07:24 PTAGE: 45 years EKG: SINUS TACHYCARDIA LOW QRS VOLTAGE IN PRECORDIAL LEADS POSSIBLE ANTERIOR MYOCARDIAL INFARCTI ON INFERIOR MYOCARDIAL INFARCTION ABNORMAL ECG PREVIOUS TRACING : 08/04/2016 22.57 Compared to prior tracing no significant change DOCTOR: Isaiah Rubio Interpretating Date/Time 08/05/2016 22:43:38
--- NOTE | 2016-08-05 22:50 | EKG ---
Date Performed: 08/04/2016 Time Performed: 22:57:28 PTAGE: 45 years EKG: SINUS TACHYCARDIA LOW QRS VOLTAGE IN PRECORDIAL LEADS LEFT ANTERIOR FASCICULAR BLOCK POSSIB LE ANTERIOR MYOCARDIAL INFARCTION ABNORMAL ECG INTERPRETATION BASED ON A DEFAULT AGE OF 40 YEARS PREVIOUS TRACING : 06/13/2015 04.46 Compared to the previous tracing sinus tachycardia is new DOCTOR: Isaiah Rubio Interpretating Date/Time 08/05/2016 22:48:01
[2016-08-05] MEDS ORDERED: ENOXAPARIN SODIUM 100 MG/ML SYRINGE SQ SCH (23:00)
== END 2016-08-05 17:12 | disposition home or self-care (01) ==
LOC: NEPE 22:59 → NEDA 08-05 02:01 → NEPHCDU 08-05 05:32
PROVIDERS: ADMIT Specialist; ATTEND Specialist
DX: R07.9 Chest pain, unspecified (principal); I25.10 Atherosclerotic heart disease of native coronary artery without angina pectoris; I25.2 Old myocardial infarction; R06.02 Shortness of breath; R11.0 Nausea; R61 Generalized hyperhidrosis; Z98.84 Bariatric surgery status; K58.9 Irritable bowel syndrome, unspecified; J44.1 Chronic obstructive pulmonary disease with (acute) exacerbation; I10 Essential (primary) hypertension; F17.210 Nicotine dependence, cigarettes, uncomplicated; E78.5 Hyperlipidemia, unspecified; E11.9 Type 2 diabetes mellitus without complications; F41.9 Anxiety disorder, unspecified; F32.9 Major depressive disorder, single episode, unspecified; M54.2 Cervicalgia; G89.29 Other chronic pain; R20.0 Anesthesia of skin; R56.9 Unspecified convulsions; G43.909 Migraine, unspecified, not intractable, without status migrainosus; Z79.899 Other long term (current) drug therapy; R00.0 Tachycardia, unspecified; I44.4 Left anterior fascicular block; Y90.8 Blood alcohol level of 240 mg/100 ml or more; R09.02 Hypoxemia; F10.14 Alcohol abuse with alcohol-induced mood disorder; G47.30 Sleep apnea, unspecified
CPT/HCPCS: 71010; 71275; 80053; 80307; 81001; 82550; 82552; 82948; 83690; 83735; 83880; 84443; 84484; 85025; 85610; 85652; 85730; 93005; 93970; 94640; 94664; 96360; 99285; G0378; J1650; J2060; J2930; J7030; Q9967

== ENCOUNTER 2016-11-27 20:03 | Inpatient (IN) | payer OTHER ==
[~2016-11-27] VITALS: Ht 180.3 cm; Wt 90.0 kg
[2016-11-27] VITALS (8 sets, daily range): BP systolic 116–143; BP diastolic 67–83; PULSE 82–104; RESP 15–20; TEMP 98; O2SAT 94–99
[~2016-11-27 20:03] MED LIST changes: +ASPI81CH CHEW; -ASPI81TA82 PO; -ATOR40TA PO; +ATOR40TA16 PO; +IOHEXOL 350 MG/ML 100 ML BTL (for Cath Lab) OTHER ONE; +MEDR4PAK PO; +PANT40TA3 PO; -PROT40TA PO; +SERO300T PO; +VENTAER INH
--- NOTE | 2016-11-27 20:21 | PD ---
HPI Chief Complaint: chest pain Time Seen by Provider: 20:20 Travel History International Travel<30 days: No Contact w/Intl Traveler<30days: No History of Present Illness HPI 46-year-old male presents to the emergency department for evaluation of left- sided chest pain increased on the left arm. He apparently was caught shoplifting and during the interview is when he states his chest pain started. Patient does deputy at bedside at this time. Patient received aspirin 162 mg by mouth, nitroglycerin 2 in route by EMS. He states this did not change his pain. Apparently, the nitroglycerin dropped his blood pressure and received normal saline 500 bolus. The patient's fuel injection servicer is Dr. Vaughn. However, he states he has not seen him in 2 years. He states he had a cardiac catheterization a couple of years ago. Patient's past medical history of CAD, gastric bypass in 2005, loop recorder implantation, COPD, depression, hyperlipidemia, hypertension, sleep apnea. Patient apparently had a previous catheterization January 28, 2013 which showed a stenosis of the proximal mid LAD and felt to be about 50% by ultrasound. Patient denies any recent surgery or travel. Patient Reports associated shortness of breath. He states he does use an albuterol inhaler home which she has not used recently. She reports diaphoresis, nausea as well. PFSH Past Medical History Asthma: No Anxiety: Yes Depression: Yes Cancer: No Cardiac Catheterization: Yes Cardiovascular Problems: Yes (UT IN THE PAST, ANGINA EPISODES X 2) High Cholesterol: No COPD: Yes Diabetes: Yes (CONTROLLED W/DIET SINCE GASTRIC BYPASS) Diminished Hearing: No Endocrine: Yes Gastrointestinal Disorders: Yes (HX OF GASTRIC BYPASS 2004) Genitourinary: No Headaches: No Hepatitis: No Hiatal Hernia: No Herniated Disk: Yes Hypertension: Yes Immune Disorder: No Musculoskeletal: Yes (CHRONIC NECK PAIN C4-C5, OSTEOARTHRITIS) Neurologic: Yes (NUMBNESS JAMAAL HANDS, SEIZURE 2 YEARS AGO) Psychiatric: No Reproductive: No Respiratory: Yes (COPD) Migraines: Yes Myocardial Infarction: Yes Seizures: Yes Sleep Apnea: No Thyroid Disease: No Past Surgical History Abdominal Surgery: Yes (GASTRIC BYPASS 2004) AICD: No Joint Replacement: No Pacemaker: No Other Surgery: Yes (GASTRIC BYPASS 2001) Social History Alcohol Use: Yes (6 glasses of wine today) Tobacco Use: Yes (2 to 3 PPD) Substance Use: No Allergies-Medications (Allergen,Severity, Reaction): Coded Allergies: No Known Allergies (Verified , 06/12/15) Reported Meds & Prescriptions Reported Meds & Active Scripts Active Ventolin Hfa 18 GM Inh (Albuterol Sulfate) 90 Mcg/Act Aer 2 Puff INH Q6H PRN Reported Gabapentin 300 Mg Cap 300 Mg PO HS Aspirin 81 Mg Chew 81 Mg CHEW DAILY Seroquel (Quetiapine Fumarate) 300 Mg Tab 300 Mg PO HS Review of Systems Except as stated in HPI: all other systems reviewed are Neg Physical Exam Narrative GENERAL: Well-nourished, well-developed male patient, afebrile. SKIN: Focused skin assessment warm/dry. HEAD: Normocephalic. Atraumatic. EYES: No scleral icterus. No injection or drainage. NECK: Supple, trachea midline. No JVD or lymphadenopathy. CARDIOVASCULAR: Regular rate and rhythm without murmurs, gallops, or rubs. Bilateral radial and pedal pulses are 2+. RESPIRATORY: Breath sounds equal bilaterally. No accessory muscle use. Lungs sounds with expiratory wheezes noted throughout. GASTROINTESTINAL: Abdomen soft, non-tender, nondistended. MUSCULOSKELETAL: No cyanosis, or edema. BACK: Nontender without obvious deformity. No CVA tenderness. Data Data Last Documented VS Vital Signs Date Time Temp Pulse Resp B/P (MAP) Pulse Ox O2 Delivery O2 Flow Rate FiO2 11/27/16 20:25 98 15 131/72 (91) 96 Nasal Cannula 4.00 11/27/16 20:09 98.0 Orders Orders Electrocardiogram (11/27/16 20:17) Basic Metabolic Panel (Bmp) (11/27/16 20:17) Ckmb (Isoenzyme) Profile (11/27/16 20:17) Complete Blood Count With Diff (11/27/16 20:17) Magnesium (Mg) (11/27/16 20:17) Troponin I (11/27/16 20:17) Chest, Single Ap (11/27/16 20:17) Ecg Monitoring (11/27/16 20:17) Bilateral Bp Monitoring (11/27/16 20:17) Iv Access Insert/Monitor (11/27/16 20:17) Oximetry (11/27/16 20:17) Oxygen Administration (11/27/16 20:17) Sodium Chloride 0.9% Flush (Ns Flush) (11/27/16 20:30) Albuterol-Ipratropium Neb (Duoneb Neb) (11/27/16 20:30) Sodium Chlor 0.9% 1000 Ml Inj (Ns 1000 M (11/27/16 22:45) Labs Laboratory Tests Test 11/27/16 20:20 White Blood Count 4.2 TH/MM3 Red Blood Count 3.73 MIL/MM3 Hemoglobin 13.2 GM/DL Hematocrit 39.1 % Mean Corpuscular Volume 104.8 FL Mean Corpuscular Hemoglobin 35.5 PG Mean Corpuscular Hemoglobin Concent 33.9 % Red Cell Distribution Width 20.4 % Platelet Count 67 TH/MM3 Mean Platelet Volume 10.6 FL Neutrophils (%) (Auto) 67.6 % Lymphocytes (%) (Auto) 16.0 % Monocytes (%) (Auto) 14.6 % Eosinophils (%) (Auto) 0.8 % Basophils (%) (Auto) 1.0 % Neutrophils # (Auto) 2.8 TH/MM3 Lymphocytes # (Auto) 0.7 TH/MM3 Monocytes # (Auto) 0.6 TH/MM3 Eosinophils # (Auto) 0.0 TH/MM3 Basophils # (Auto) 0.0 TH/MM3 CBC Comment AUTO DIFF Blood Urea Nitrogen 7 MG/DL Creatinine 0.68 MG/DL Random Glucose 102 MG/DL Calcium Level 8.7 MG/DL Magnesium Level 1.8 MG/DL Sodium Level 132 MEQ/L Potassium Level 3.3 MEQ/L Chloride Level 94 MEQ/L Carbon Dioxide Level 20.1 MEQ/L Anion Gap 18 MEQ/L Estimat Glomerular Filtration Rate 126 ML/MIN Total Creatine Kinase 56 U/L Troponin I LESS THAN 0.02 NG/ML MDM Medical Decision Making Medical Screen Exam Complete: Yes Emergency Medical Condition: Yes Medical Record Reviewed: Yes Interpretation(s) chest x-ray - CONCLUSION: 1. No acute findings. Differential Diagnosis Anxiety versus ACS versus chest wall pain versus pneumonia versus COPD exacerbation versus pneumothorax Narrative Course 46-year-old male presents to the emergency Department under arrest for evaluation was a chest pain remains to the left arm. He reports history of [place]. EKG shows sinus tachycardia, heart rate 102, no acute ST changes. CBC, BMP, CK, troponin, magnesium are ordered and pending. On exam, the patient has expiratory wheezes noted throughout. DuoNeb 2 are ordered and pending. CBC shows no acute abnormality, platelets are decreased at 67. BMP shows anion gap of 18. Patient states that he drinks at least 6 glasses of wine every night with history of alcohol abuse. Magnesium is 1.8. CK is 56. Troponin is less than 0.02. Chest x-ray shows no acute findings. Patient is given normal saline 1 L IV bolus. Patient will admitted to the chest pain center for further evaluation. Patient agrees to this. Diagnosis Primary Impression: Chest pain Qualified Codes: R07.9 - Chest pain, unspecified Admitting Information Admitting Physician Requests: Maria Esther Thibodeaux Nov 27, 2016 20:21
[2016-11-27] MEDS ORDERED: GABA300C5 PO (20:28)
[2016-11-27] MEDS ORDERED: SODIUM CHLORIDE 0.9% FLUSH 10 ML FLUSH IVF PRN (20:30)
[2016-11-27] MEDS: RESP: ALBUTEROL 2.5 MG/IPRATROPIUM 0.5 MG NEB (SCH) INH ×2 (20:30→20:31)
--- NOTE | 2016-11-27 20:54 | RADRPT ---
EXAM DATE/TIME: 11/27/2016 20:44 [facility] COMPARISON: CHEST SINGLE AP, August 04, 2016, 23:41. INDICATIONS : Chest pain starting this morning. MEDICAL HISTORY : Seizures. Myocardial infarction. Hypertension SURGICAL HISTORY : Gastric bypass. Cardiac catherization ENCOUNTER: Initial ACUITY: 1 day PAIN SCORE: 7/10 LOCATION: Bilateral chest FINDINGS: A single view of the chest demonstrates no focal consolidation or effusion. Heart size within normal limits. No pneumothorax. Loop recorder noted. CONCLUSION: 1. No acute findings. Serjio Bailey MD on November 27, 2016 at 20:51 Board Certified Radiologist. This report was verified electronically.
[2016-11-27 22:04] LABS: AUTOMATED NEUTROPHIL # 2.8 TH/MM3 (1.8-7.7); EOSINOPHIL % 0.8 % (0.0-4.0); HEMATOCRIT 39.1 % (39.0-51.0); LYMPHOCYTE # 0.7 TH/MM3 (1.0-4.8); MEAN CELL VOLUME 104.8 FL (80.0-100.0); MEAN CORPUSCULAR HEMOGLOBIN 35.5 PG (27.0-34.0); MEAN CORPUSCULAR HGB CONC 33.9 % (32.0-36.0); MONO % 14.6 % (0.0-8.0); NEUT % 67.6 % (16.0-70.0); PLATELET COUNT 67 TH/MM3 (150-450); RED BLOOD COUNT 3.73 MIL/MM3 (4.50-5.90); RED CELL DISTRIBUTION WIDTH 20.4 % (11.6-17.2); WHITE BLOOD COUNT 4.2 TH/MM3 (4.0-11.0)
[2016-11-27 22:10] LABS: HEMO FLAGS AUTO DIFF
[2016-11-27 22:32] LABS: ANION GAP 18 MEQ/L (5-15); BICARBONATE 20.1 MEQ/L (21.0-32.0); BLOOD UREA NITROGEN 7 MG/DL (7-18); CHLORIDE 94 MEQ/L (98-107); GLOMERULAR FILTRATION RATE 126 ML/MIN (>89); MAGNESIUM 1.8 MG/DL (1.5-2.5); POTASSIUM 3.3 MEQ/L (3.5-5.1); SODIUM (NA) 132 MEQ/L (136-145)
[2016-11-27 22:38] LABS: CREATINE KINASE 56 U/L (39-308)
[2016-11-27] MEDS ORDERED: SODIUM CHLOR 0.9% 1000 ML INJ 1,000 ML IV ONE (22:45)
[2016-11-27 22:56] LABS: ACANTHOCYTES OCC (NORMAL); KERATOCYTES OCC (NORMAL); OVALOCYTES 1+ (NORMAL); PLATELET ESTIMATE SMEAR LOW (NORMAL); PLATELET MORPHOLOGY NORMAL (NORMAL); SCAN/DIFF AUTO DIFF CONFIRMED
[2016-11-27] MEDS ORDERED: SODIUM CHLORIDE 0.9% FLUSH 10 ML FLUSH IV FLUSH PRN (23:00)
[2016-11-28] VITALS (9 sets, daily range): BP systolic 117–139; BP diastolic 68–82; PULSE 71–100; RESP 16–20; TEMP 97.4–98.4; O2SAT 93–98
[2016-11-28 01:03] LABS: CREATINE KINASE 47 U/L (39-308)
[2016-11-28 02:58] LABS: CREATINE KINASE 50 U/L (39-308)
[2016-11-28] MEDS ORDERED: POTASSIUM CHLORIDE 20 MEQ CONTROLLED RELEASE TAB PO ONE (10:30)
--- NOTE | 2016-11-28 10:42 | HHI.HP ---
[facility] Primary Care Physician Gladys Tavarez D.O. Chief Complaint Chest pain History of Present Illness This is a 46-year-old male that presents to ED with a complaint of a left-sided chest discomfort that began yesterday with nausea and shortness of breath. When asked to describe it patient states "I can't remember." States he has history of heart disease. I reviewed his records she had heart catheterization in 2013 the did reveal disease in LAD but did not need intervention. 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 Voices compliance with medication. However patient continues to smoke cigarettes. Review of Systems General: Patient denies fevers, chills recent, and recent travel HEENT: Patient denies headache, sore throat, difficulty swallowing. Cardiovascular: Has the chest discomfort as mentioned above. Denies sensation of heart beating rapidly or irregularly. No syncope. Denies diaphoresis. Respiratory: He was short of breath. Denies inspirational chest discomfort. Denies coughing wheezing or hemoptysis. GI: He was nauseous. Patient denies vomiting, diarrhea, abdominal pain, bloody stools. Musculoskeletal: Patient denies joint pain or edema. Denies calf pain or edema. Neurovascular: Patient denies numbness, tingling, weakness in extremities. Denies headache. Endocrine: Denies polyuria and polydipsia. Hematologic: Denies easy bruising. Skin: Denies rash or itching. Past Family Social History Allergies: Coded Allergies: No Known Allergies (Verified , 06/12/15) Past Medical History CAD. Hyperlipidemia. COPD. He has a loop recorder. Depression. Denies hypertension and diabetes. Past Surgical History Heart catheterization without intervention. Gastric bypass in 2004. Reported Medications Reported Meds & Active Scripts Active Ventolin Hfa 18 GM Inh (Albuterol Sulfate) 90 Mcg/Act Aer 2 Puff INH Q6H PRN Reported Gabapentin 300 Mg Cap 300 Mg PO HS Aspirin 81 Mg Chew 81 Mg CHEW DAILY Seroquel (Quetiapine Fumarate) 300 Mg Tab 300 Mg PO HS Active Ordered Medications Current Medications Medications (Trade) Dose Ordered Sig/Deana Route Start Time Stop Time Status Last Admin (NS Flush) 2 ml UNSCH PRN IV FLUSH 11/27/16 23:00 Family History There is family history of CAD. Social History Patient smoking cigarettes at about 1 pack of cigarettes daily for the last 2-3 months however prior that he was smoking up to 3 pack of cigarettes daily for more than 25 years. Has a glass of wine daily. Denies illicit drugs. Physical Exam Vital Signs Vital Signs Date Time Temp Pulse Resp B/P (MAP) Pulse Ox O2 Delivery O2 Flow Rate FiO2 11/28/16 08:31 98.2 74 20 132/75 (94) 93 11/28/16 08:04 94 21 11/28/16 04:53 98.1 77 18 133/77 (95) 94 11/28/16 01:21 75 11/28/16 00:57 98.4 79 20 127/76 (93) 96 11/28/16 00:27 11/28/16 00:15 86 16 125/74 (91) 98 Nasal Cannula 4.00 11/27/16 23:00 82 17 125/72 (89) 98 Nasal Cannula 4.00 11/27/16 22:58 99 Nasal Cannula 2.00 11/27/16 22:00 98 116/79 (91) 99 Nasal Cannula 11/27/16 21:00 102 119/77 (91) 98 Nasal Cannula 11/27/16 20:30 96 16 132/67 (88) 99 Nasal Cannula 4.00 11/27/16 20:25 98 15 131/72 (91) 96 Nasal Cannula 4.00 11/27/16 20:25 96 Nasal Cannula 4.00 11/27/16 20:15 104 20 143/83 (103) 96 Nasal Cannula 4.00 11/27/16 20:10 100 Room Air 2.00 11/27/16 20:09 98.0 104 20 143/83 (103) 94 Physical Exam GENERAL: This is a well-nourished, well-developed patient, in no apparent distress. Patient speaks in clear complete sentences. Patient is pleasant. He is under police custody with officer at bedside. HEENT: Head is atraumatic and normocephalic. Neck is supple without lymphadenopathy and trachea is midline. No JVD or carotid bruits. CARDIOVASCULAR: Regular rate and rhythm without murmurs, gallops, or rubs. RESPIRATORY: Clear to auscultation. Breath sounds equal bilaterally. No wheezes , rales, or rhonchi. Chest wall is nontender. No use of accessory muscles. GASTROINTESTINAL: Abdomen is nontender, nondistended. Abdomen soft. No obvious pulsatile mass or bruit. No CVA tenderness. Strong femoral pulses bilaterally. Normal bowel sounds in all quadrants. MUSCULOSKELETAL: Patient is moving upper and lower extremities freely. No calf tenderness or edema, no Homans sign. Strong pulses in upper and lower extremities. NEUROLOGICAL: Patient is alert and oriented. Cranial nerves 2-12 are grossly intact. No focal deficits and speech is clear. SKIN: No rash and turgor is normal. Laboratory Laboratory Tests Test 11/27/16 20:20 11/28/16 00:05 11/28/16 02:10 11/28/16 08:44 White Blood Count 4.2 Red Blood Count 3.73 Hemoglobin 13.2 Hematocrit 39.1 Mean Corpuscular Volume 104.8 Mean Corpuscular Hemoglobin 35.5 Mean Corpuscular Hemoglobin Concent 33.9 Red Cell Distribution Width 20.4 Platelet Count 67 Mean Platelet Volume 10.6 Neutrophils (%) (Auto) 67.6 Lymphocytes (%) (Auto) 16.0 Monocytes (%) (Auto) 14.6 Eosinophils (%) (Auto) 0.8 Basophils (%) (Auto) 1.0 Neutrophils # (Auto) 2.8 Lymphocytes # (Auto) 0.7 Monocytes # (Auto) 0.6 Eosinophils # (Auto) 0.0 Basophils # (Auto) 0.0 CBC Comment AUTO DIFF Differential Comment AUTO DIFF CONFIRMED Platelet Estimate LOW Platelet Morphology Comment NORMAL Ovalocytes 1+ Acanthocytes OCC Keratocytes OCC Blood Urea Nitrogen 7 Creatinine 0.68 Random Glucose 102 Calcium Level 8.7 Magnesium Level 1.8 Sodium Level 132 Potassium Level 3.3 Chloride Level 94 Carbon Dioxide Level 20.1 Anion Gap 18 Estimat Glomerular Filtration Rate 126 Total Creatine Kinase 56 47 50 Troponin I LESS THAN 0.02 LESS THAN 0.02 LESS THAN 0.02 D-Dimer Quantitative (PE/DVT) 0.30 Result Diagram: 11/27/16201911/27/162019 Imaging Last 48 hours Impressions Chest X-Ray 11/27/162016 Signed Impressions: Service Date/Time: Sunday, November 27, 2016 20:44 - CONCLUSION: 1. No acute findings. Serjio Bailey MD Course EKGs are sinus rhythm without significant ST segment depressions or elevations. Caprini VTE Risk Assessment Caprini VTE Risk Assessment: No/Low Risk (score <= 1) Caprini Risk Assessment Model Point Value = 1 Point Value = 2 Point Value = 3 Point Value = 5 Age 41-60 Minor surgery BMI > 25 kg/m2 Swollen legs Varicose veins or History of unexplained or recurrent spontaneous Oral contraceptives or hormone replacement Sepsis (< 1 month) Serious lung disease, including pneumonia (< 1 month) Abnormal pulmonary function Acute myocardial infarction Congestive heart failure (< 1 month) History of inflammatory bowel disease Medical patient at bed rest Age 61-74 Arthroscopic surgery Major open surgery (> 45 min) Laparoscopic surgery (> 45 min) Malignancy Confined to bed (> 72 hours) Immobilizing plaster cast Central venous access Age >= 75 History of VTE Family history of VTE Factor V Leiden Prothrombin [id number] Lupus anticoagulant Anticardiolipin antibodies Elevated serum homocysteine Heparin-induced thrombocytopenia Other congenital or acquired thrombophilia Stroke (< 1 month) Elective arthroplasty Hip, pelvis, or leg fracture Acute spinal cord injury (< 1 month) Prophylaxis Regimen Total Risk Factor Score Risk Level Prophylaxis Regimen 0-1 Low Early ambulation 2 Moderate Order ONE of the following: *Sequential Compression Device (SCD) *Heparin 5000 units SQ BID 3-4 Higher Order ONE of the following medications: *Heparin 5000 units SQ TID *Enoxaparin/Lovenox 40 mg SQ daily (WT < 150 kg, CrCl > 30 mL/min) *Enoxaparin/Lovenox 30 mg SQ daily (WT < 150 kg, CrCl > 10-29 mL/min) *Enoxaparin/Lovenox 30 mg SQ BID (WT < 150 kg, CrCl > 30 mL/min) AND/OR *Sequential Compression Device (SCD) 5 or more Highest Order ONE of the following medications: *Heparin 5000 units SQ TID (Preferred with Epidurals) *Enoxaparin/Lovenox 40 mg SQ daily (WT < 150 kg, CrCl > 30 mL/min) *Enoxaparin/Lovenox 30 mg SQ daily (WT < 150 kg, CrCl > 10-29 mL/min) *Enoxaparin/Lovenox 30 mg SQ BID (WT < 150 kg, CrCl > 30 mL/min) AND *Sequential Compression Device (SCD) Assessment and Plan Assessment and Plan * Chest pain: Patient has had serial cardiac enzymes and EKGs for ruling out purposes. He does have history of CAD. He was seen by Dr. Ousmane Gupta of cardiology in the chest pain center and will undergo a Lexiscan. He'll be discharged home if the Lexiscan is nonischemic. * Tobacco abuse: Patient has been counseled on the importance of smoking cessation. * CAD: Patient will have this reassessed with stress testing. 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 Needs to continue his medications which he states he is compliant with however he does not take a beta julia. He needs discuss this further as it may be contraindication for this. * Hyperlipidemia: Continue current medication. Patient is stable at this time. He is agreeable to this plan. Dinh Hodge Nov 28, 2016 10:42
[2016-11-28] MEDS ORDERED: REGADENOSON INJ 0.4 MG/5 ML SYR ONE (11:45)
--- NOTE | 2016-11-28 12:58 | RADRPT ---
EXAM DATE/TIME: 11/28/2016 11:21 [place] COMPARISON: No previous studies available for comparison. INDICATIONS : Left sided chest pain radiating to left arm. Angina. Myocardial infarction. DOSE: 25.7 mCi Tc99m Myoview at stress. 8.1 mCi Tc99m Myoview at rest. 0.4 mg Lexiscan STRESS SYMPTOMS: Nausea and anxiety. EJECTION FRACTION: 57% MEDICAL HISTORY : Cardiovascular disease. Seizures. Chronic obstructive pulmonary disease. Smoker. SURGICAL HISTORY : Gastric bypass. Coronary artery stent. Loop recorder and cardiac cath. ENCOUNTER: Initial ACUITY: 1 day PAIN SCALE: 2/10 LOCATION: Left chest TECHNIQUE: The patient underwent pharmacologic stress with infusion of prescribed dose. Continuous ECG tracing was monitored during stress. Gated SPECT imaging was performed after stress and conventional SPECT i maging was performed at rest. The examination was performed on a SPECT/CT scanner, both attenuation and non-corrected datasets were reviewed. FINDINGS: DISTRIBUTION: The maximum perfused segment at stress is in the anteroseptal wall. PERFUSION STUDY: There is focal perfusion defect at stress involving the anterior and lateral castillo near the base. GATED STUDY: There is intact wall motion and thickening without hypokinetic or dyskinetic segments. CONCLUSION: 1. Focal reversal perfusion defects at stress in the anterior and lateral castillo near the base. 2. No focal wall motion abnormality with reduced EF of 57%. RISK CATEGORY: Low (<1% Annual Mortality Rate) Lobo Dupont MD on November 28, 2016 at 12:51 Board Certified Radiologist. This report was verified electronically.
[2016-11-28] MEDS ORDERED: SODIUM CHLOR 0.9% 1000 ML INJ 1,000 ML IV SCH (13:57)
[2016-11-28] MEDS ORDERED: VERAPAMIL HCL 5 MG/2 ML VIAL ONE (14:40)
[2016-11-28] MEDS ORDERED: HEPARIN SODIUM - IV 10,000 UNITS/10 ML VIAL ONE (14:40)
[2016-11-28] MEDS ORDERED: HEPARIN-NS/PF INJ 1,000 ML ONE (14:41)
[2016-11-28] MEDS ORDERED: MIDAZOLAM HCL 2 MG/2 ML VIAL ONE ×2 (14:54→15:29)
--- NOTE | 2016-11-28 15:36 | MB ---
cc: ROCKY ESCALONA M.D. DATE OF CONSULTATION: 11/28/2016 REASON FOR CONSULTATION: Chest pain, abnormal nuclear stress test. HISTORY OF PRESENT ILLNESS The patient is a 46-year-old white male, followed in our office by Dr. Mitch Acevedo, with a history of COPD, coronary artery disease, tobacco abuse, hypertension, who presented to the hospital with complaints of chest pain. Intermittently over the last 4 months he has been having substernal chest pain described as "sharp," most often precipitated by exertion although with a few episodes at rest. The longest episodes have lasted up to 1-2 hours. They are usually associated with shortness of breath and slight nausea. The chest pain on the day of admission was especially severe so he came in for further evaluation and treatment. Nuclear stress testing reportedly shows evidence for anterior and lateral ischemia. He denies pleurisy, lightheadedness, syncope, near-syncope, palpitations, pedal edema, paroxysmal nocturnal dyspnea. PAST MEDICAL HISTORY 1. Coronary disease with heart catheterization 01/28/2013 showing a proximal to mid LAD stenosis felt to be 50% by intravascular ultrasound imaging. 2. History of gastric bypass surgery 2005. 3. Hypertension 4. COPD. 5. Hyperlipidemia. 6. Sleep apnea. CARDIAC MEDICATIONS at home Aspirin 81 mg daily. ALLERGIES NO KNOWN DRUG ALLERGIES. FAMILY HISTORY The patient's mother initially sustained a myocardial infarction in her 30s. His brother from myocardial infarction in his 50s. SOCIAL HISTORY The patient smokes as much as three packs of cigarettes per day. He also drinks a few glasses of wine per day. REVIEW OF SYSTEMS Review of systems as in the history of present illness otherwise negative or noncontributory. He also denies headache, abdominal pain, melena, dyspepsia, bright red blood per rectum. PHYSICAL EXAMINATION: VITAL SIGNS: On physical examination and blood pressure 132/75 with a pulse of 74, respirations 20. IN GENERAL: He is a well-developed, well-nourished white male in no acute distress. HEAD, EYES, EARS, NOSE, AND THROAT: Jugular venous pressure is normal. Carotid pulses are 2+ bilaterally and without bruits. CHEST: Examination of the chest reveals clear lung holley. CARDIOVASCULAR SYSTEM: He has a regular rhythm and rate without S3-S4 or murmur. ABDOMEN: On abdominal examination he has a soft, nontender abdomen. Bowel sounds are present. There is no definite hepatosplenomegaly. EXTREMITIES: Examination of the extremities reveals no clubbing, cyanosis or edema. Peripheral pulses are normal throughout. EKG shows sinus rhythm, diffuse low QRS voltage, anterolateral T-wave abnormality consider ischemia. Laboratory data includes WBC 4.2, hemoglobin 13.2, platelets 67, potassium 3.3, BUN 7, creatinine 0.68, negative cardiac enzymes. Her INR is pending. CHEST X-RAY Shows no acute disease. IMPRESSION Symptoms suggestive of unstable angina, abnormal nuclear stress test suggesting anterior and lateral ischemia in this 46-year-old white male with a history of known coronary artery disease, COPD, tobacco abuse, sleep apnea, diet-controlled diabetes. He has continued to have episodic chest discomfort at rest. His nuclear stress test images have been reviewed. I would agree with the interpretation by the radiologist. In light of the instability of his symptoms and his abnormal nuclear stress test findings, I would agree with the need for cardiac catheterization and possible percutaneous coronary intervention. The nature of these procedures and potential risks have been outlined to the patient. He agrees to proceed. He does have a relatively low platelet count at this time, so depending on the coronary angiogram findings, I may elect to treat him medically. RECOMMENDATIONS 1. Cardiac catheterization today. 2. Continue the beta-julia and aspirin and statin started here in the hospital. 3. Followup CBC in the morning and consider further workup for his thrombocytopenia. MD KATE Roper/dominick /2:20 PM /3:28 PM GIOVANNA
--- NOTE | 2016-11-28 15:47 | CATHPROC ---
[employer] HIS Report Study Information Study Number Admission Scheduled Start Study Start [id number] Nov 27 2016 10:51PM 11/28/2016 Nov 28 2016 2:40PM Study Type [place] Service Left/Possible PCI Cardiac Catheterization Admit Source Facility Department Emergency department [facility] [place] [facility] Worker Physician and Clinical Staff Initial Yuriy Duron Archives Director Elena Hauser,DANA Archives Director Juvenal Suarez,DANA Recorder Bambi Pineda,RT(R) ScrTami Woo,(R) ScrMatty Trimble RCIS(BS) Procedures Performed Procedure Location (Site) Vessel Name Coronary Angiograms LCA Left Coronary Coronary Angiograms RCA Right Coronary L Heart Cath LV Gram-hand inj. LV LV Ventricle Wire insertion Radial (right) Radial Art. Equipment Time Kinesiology Professor Description Size Mfg Part Number Used/Scraped TRANSDUCER, TRUWAVE [id number] 14:52 LEW YI * Used W/STOCKCOCK *[id number] SDN-21-2.5 14:53 [employer]. NEEDLE, PERCUTANEOUS ENTRY 21G X 2.5CM Used *[id number] 534-618T *[id number] 534-642T *[id number] PIGTAIL ANG. 145 INFINITI 534-652S CATHETER *[id number] 534-650S *[id number] 14:52 MALLINCKRODT SYRINGE, ANGIOMAT 150ML 150ML *[id number] Used 2S [employer] CONCEPT DRAPE, RADIAL FEMORAL FULL 14:52 * [id number] *[id number] Used DEVELOPMENT BODY [id number] 14:52 Forever PACK, CCL CUSTOM * Used *[id number] 14:52 [employer]ver SUPPORT, ARTERIAL ADULT 99061 *[id number] Used [id number] 14:52 [employer] Systems PACER PEN, SKIN DUAL W/ RULER * Used *[id number] BAND, RADIAL COMPRESSION TR [id number] 15:34 [employer] 24CM Used SHORT 24 *[id number] SHEATH, FR6 RADIAL PRELUDE 14:52 [employer] FR 6 [id number] Used EASE 11CM [id number] 14:52 [employer] WIRE, EXCHANGE 260CM 3MMJ 260CM Used *[id number] 14:52 NAMIC MANIFOLD, 4 PORT * Used *[id number] 15:28 NAMIC TUBING, HIGH PRESSURE 20" 20" Used *[id number] 14:52 NYCOMED OMNIPAQUE, 350 MG, 150ML 150ML [id number] Used 15:14 NYCOMED OMNIPAQUE, 350 MG, 150ML 150ML [id number] Used [id number] 14:52 SHEA MEDICAL BLANKET,WARM AIR CCL * Used *[id number] CATHETER, FR5 OPTITORQUE [id number] 15:10 [email or web address] FR 5 Used RADIAL TIG 4.0 *[id number] History: Current Medications Medication Dosage/Unit Route Frequency Last Date/Time Taken ASA Statins (any) History: Allergies Allergy Reaction No Known Allergies History: Risk Factors Family History of Hypertension Dyslipidemia Previous NV Previous Heart Failure Premature CAD Yes Yes Yes Yes No Prior Valve Prior PCI Prior CABG Surgery No No No Cerebrovascular Peripheral Artery Chronic Lung On Dialysis Diabetes Disease Disease Disease No No No Yes No History: Symptoms/Diagnosis Selection Items Chest pain History: CV Disease Selection Items Known CAD NV History: Stress Tests Stress or Imaging Studies Performed Yes Standard Exercise Stress Test No Stress Echo No Stress Test SPECT Stress Test SPECT Result Stress Test SPECT Ischemia Risk/Extent Yes Positive Intermediate Stress Test CMR No Cardiac CTA Coronary Calcium Score No No History: Other Current Smoker Method Packs a Day Years Used Pack Years Yes Cigarettes 3 25 75 Labs Hgb (g/dl) Hct (%) WBC (l/cumm) Platelets (thousands) 11.60-17.00 35.00-51.00 4.00-11.00 150.00-450.00 13.2 39.2 4.2 67 Glucose (mg/dl) BUN (mg/dl) Creatinine (mg/dl) BUN:Creatinine (1:x) 74.00-106.00 7.00-18.00 0.50-1.30 10.00-20.00 102 7 0.6 11.7 Na (meq/l) K (meq/l) 136.00-145.00 3.50-5.10 132 3.3 Troponin I (ng/ml) CPK (u/l) CPK-MB (ng/ML) 0.02-0.05 26.00-308.00 0.50-3.60 0.02 50 Not Drawn Medication Medication Total Dose (Bolus/Oral) Medication Total Dosage/Unit 1% XYLOCAINE 20 mL RADIAL COCKTAIL 5 mL (Bolus) VERSED 4 mg Medications (Bolus/Oral) Medication Time Given Dosage/Unit Administered By Reason VERSED 11/28/2016 3:08:00 PM 2 mg Elena Hauser 2 mg VERSED given in lab by Elena Hauser, RN via Peripheral IV. 1% XYLOCAINE 11/28/2016 3:08:39 PM 20 mL Yuriy Maldonado 20 mL 1% XYLOCAINE given in lab by Yuriy Maldonado in Right Radial via Subcutaneous. Ntg 200mcg Verapamil 2.5mg Heparin RADIAL COCKTAIL 11/28/2016 3:13:01 PM 5 mL (Bolus) Yuriy Maldonado 2500U 5 mL (Bolus) RADIAL COCKTAIL given in lab by Yuriy Maldonado via Radial. Using [Solution Name]. Reason: Ntg 200mcg Verapamil 2.5mg Heparin 2500U. VERSED 11/28/2016 3:31:49 PM 2 mg Elena Hauser 2 mg VERSED given in lab by Elena Hauser, DANA via Peripheral IV. Medication (Drip) Medication Time Given Dosage/Unit Concentration/Unit Diluent (ml) Solution IV Solutions 11/28/2016 2:47:14 PM 0 mL (IV) 500 NaCl .9 Patient arrived on IV Solutions in Left Wrist via Peripheral IV. Pump/Drip Flow = 20 ml/hr using NaCl .9. Ordered by Yuriy Maldonado. Initial Case Assessment Cardiovascular HR Rhythm NIBP Chest Pain 67 REG 144/91 0 Edema Present Skin color Skin None Normal Warm Circulatory - Right Pulses Dorsalis Pedis Femoral Radial 1 2 2 Scale (0,1,2,3,4,d) Circulatory - Left Pulses Dorsalis Pedis Femoral Radial 2 Scale (0,1,2,3,4,d) Circulatory - Lower Extremities Color Lower Right Normal Neurological State Oriented to time-place- Alert Moves all extremities person Respiration - General Respiration Rate SpO2 (%) (B/min) 17 95 Final Case Assessment Cardiovascular HR Rhythm NIBP Chest Pain 98 REG 148/100 0 Edema Present Skin color Skin None Normal Warm Circulatory - Right Pulses Dorsalis Pedis Femoral Radial 2 2 2 Scale (0,1,2,3,4,d) Circulatory - Left Pulses Dorsalis Pedis Femoral Radial 2 Scale (0,1,2,3,4,d) Circulatory - Lower Extremities Color Lower Right Normal Neurological State Oriented to time-place- Alert Moves all extremities person Respiration - General Respiration Rate SpO2 (%) (B/min) 20 96 Chronological Log Time Study Chronological Log 14:37:16 Patient arrived via Bed. 14:40:23 Patient Name, D.O.B, / Armband Verified By R.N. 14:42:23 Consent signed by the physician and the patient and verified by the [place] [facility] Worker staff. 14:42:25 Pre-op and post- op instructions given; patient acknowledges understanding of instructions. 14:42:26 Verbal Stimulation=2 Physical Stimulation=2 Airway=2 Respiration=2 TOTAL=8. (0=absent, 1=li mited, 2=present) Vitals capture started with the following parameters, Patient=Adult, Interval=5 min, Initial Pr itsjzz=317 mmHg, 14:43:09 Deflation Rate=5 mmHg, Cuff placed on LEFT Arm 14:43:42 Reference ECG taken 14:44:17 Allens test performed on the right radial and ulnar artery BY Patricia BRUNSON WITH A POSITIVE RESU LT 14:44:25 HR=71 bpm, UWES=228/91 mmhg, SpO2=95.0 %, Resp=8 B/min, Pain=0, Duarte=10, Johnson=2 14:45:35 Patient has been NPO for More than 6Hrs. 14:45:38 Skin Breakdown-NONE 14:46:07 Patient Warmer Placed on the Table. 14:46:09 A # 20 IV was noted in the Wrist (left). Grade = 0 Patient arrived on IV Solutions in Left Wrist via Peripheral IV. Pump/Drip Flow = 20 ml/hr usin g NaCl .9. Ordered by 14:47:14 Yuriy Maldonado. 14:47:50 History and physical on the chart or being dictated. Assessment: Initial Case, HR=67 BPM, Rhythm=REG, ZDFJ=824/91 mmhg, Chest Pain=0, Edema=None, Color=Normal, Skin = Warm Right Pulses: Chon Ped=1, Femoral=2, Radial=2 14:47:53 Left Pulses: Chon Ped=2 Lower Right Extremities: Color=Normal Neurological: State=Alert, Ox3, GAINES Respiration: Resp=17 B/min, SpO2=95 % 14:48:38 Right Radial and groin(s) prepped with 2% chlorhexidine, and with a 3 min. waiting time. 14:48:46 HR=67 bpm, HPTL=835/91 mmhg, SpO2=96.0 %, Resp=15 B/min, Pain=0, Duarte=10, Johnson=2 14:52:59 MD paged 14:53:47 HR=68 bpm, BRIS=306/89 mmhg, SpO2=98.0 %, Resp=18 B/min, Pain=0, Duarte=10, Johnson=2 14:58:48 HR=73 bpm, LAAZ=520/88 mmhg, SpO2=98.0 %, Resp=10 B/min, Pain=0, Duarte=10, Johnson=2 15:00:48 Pressure channel 1 zeroed. 15:03:47 HR=69 bpm, VHGF=609/90 mmhg, SpO2=97.0 %, Resp=15 B/min, Pain=0, Duarte=10, Johnson=2 15:06:03 MD arrived. 15:06:06 The Physician was on time. 15:08:00 2 mg VERSED given in lab by Elena Hauser, DANA via Peripheral IV. Time Out. Correct patient, correct procedure,correct physician, ,power injector not loaded with contrast with surgical 15:08:28 team present. Time Out Concurred by MD, individual staff and CHANGE MANAGEMENT LEAD in procedure 15:08:37 Case Start 15:08:39 20 mL 1% XYLOCAINE given in lab by Yuriy Maldonado in Right Radial via Subcutaneous. 15:08:46 HR=66 bpm, FIXD=620/88 mmhg, SpO2=98.0 %, Resp=15 B/min, Pain=0, Duarte=10, Johnson=2 15:12:31 Access site was Radial Artery. 15:12:37 A wire was inserted via Radial (right). A SHEATH, FR6 RADIAL PRELUDE EASE 11CM FR 6 was advanced into the Radial (right) using the Perc utaneous 15:12:46 technique. 5 mL (Bolus) RADIAL COCKTAIL given in lab by Yuriy Maldonado via Radial. Using [Solution Name]. Re ason: Ntg 200mcg 15:13:01 Verapamil 2.5mg Heparin 2500U. A CATHETER, FR5 OPTITORQUE RADIAL TIG 4.0 FR 5 was advanced over a wire. OMNIPAQUE, 350 MG, 150 ML 150ML 15:13:30 was used for injections. 15:13:47 IT=026 bpm, OADK=482/97 mmhg, SpO2=95.0 %, Resp=18 B/min, Pain=0, Duarte=10, Johnson=2 Recorded Pressure: Ao, HR=98, Condition=Condition 1 15:14:16 (Aorta) Ao 117/83/98 15:15:15 The LCA was injected and visualized at various angles. OMNIPAQUE, 350 MG, 150ML 150ML used . 15:18:05 The RCA was injected and visualized at various angles. OMNIPAQUE, 350 MG, 150ML 150ML used . 15:18:47 Catheter was removed 15:18:48 HR=97 bpm, DPFI=497/86 mmhg, SpO2=95.0 %, Resp=17 B/min, Pain=0, Duarte=10, Johnson=2 A JL 3.5 INFINITI CATHETER FR 6 was advanced over a wire. OMNIPAQUE, 350 MG, 150ML 150ML was us ed for 15:18:56 injections. 15:21:13 The LCA was injected and visualized at various angles. OMNIPAQUE, 350 MG, 150ML 150ML used . 15:21:58 Catheter was removed A MPA-2 INFINITI CATHETER FR 6 was advanced over a wire. OMNIPAQUE, 350 MG, 150ML 150ML was use d for 15:22:01 injections. 15:23:47 HR=91 bpm, JVQG=403/94 mmhg, SpO2=98.0 %, Resp=24 B/min, Pain=0, Duarte=10, Johnson=2 15:24:33 Catheter was removed A PIGTAIL ANG. 145 INFINITI CATHETER FR 6 was advanced over a wire. OMNIPAQUE, 350 MG, 150ML 15 0ML was 15:25:00 used for injections. 15:25:24 POWER INJECTOR LOADED NOW BY Ryan HAUSER AND VERIFIED BY Patricia BRUNSON 15:28:50 HR=88 bpm, BBWN=358/94 mmhg, SpO2=98.0 %, Resp=12 B/min, Pain=0, Duarte=10, Johnson=2 15:29:30 Catheter was removed A MPA-2 INFINITI CATHETER FR 6 was advanced over a wire. OMNIPAQUE, 350 MG, 150ML 150ML was use d for 15::48 injections. Recorded Pressure: LV, HR=54, Condition=Condition 1 15:30:59 (Left Ventricle) LV 145/5/20 15:31:21 The LV was manually injected with 10 cc's and visualized. OMNIPAQUE, 350 MG, 150ML 150ML us ed. Recorded Pressure: LV, Ao, HR=94, Condition=Condition 1 15:31:27 (Left Ventricle) LV 141/-182/10, (Aorta) Ao 136/81/106 15:31:49 2 mg VERSED given in lab by Elena Hauser, DANA via Peripheral IV. 15:32:01 Catheter was removed 15:33:32 Case End Assessment: Final Case, HR=98 BPM, Rhythm=REG, PIEN=826/100 mmhg, Chest Pain=0, Edema=None, Color=Normal, Skin = Warm Right Pulses: Chon Ped=2, Femoral=2, Radial=2 15:33:38 Left Pulses: Chon Ped=2 Lower Right Extremities: Color=Normal Neurological: State=Alert, Ox3, GAINES Respiration: Resp=20 B/min, SpO2=96 % 15:33:51 HR=97 bpm, KVII=938/100 mmhg, SpO2=96.0 %, Resp=14 B/min, Pain=0, Duarte=10, Johnson=2 15:35:24 Catheter(s) removed without difficulty Radial Compression Device Used. 13 mLs of air placed in BAND, RADIAL COMPRESSION TR SHORT 24 24 CM. Affected 15:35:27 hand ~O2 SATURATION~ % O2 saturation. 15:35:39 Sterile dressing applied to site 15:35:41 No case complications noted. 15:35:44 Cine recording checked. 15:35:45 Bedside Report will be given. 15:35:47 Contrast Scanned 15:35:52 A Left Heart Cath was performed. 15:35:56 Clinical correlaton risk stratification. 15:38:52 HR=98 bpm, QSEL=083/91 mmhg, SpO2=97.0 %, Resp=16 B/min, Pain=0, Duarte=10, Johnson=2 15:40:15 Vitals capture stopped. End Study - Contrast Media Used In Study Contrast Total Opened (mL) Total Used (mL) Total Wasted (mL) Omnipaque 80 80 0 End Study - Maximum Contrast Load Max Contrast Load (mL) 791.7 End Study - Radiation Exposure Fluoro Time (minutes) 10.2 End Study - Sheaths Sheaths Pulled By Sheath Hold Time (min) Tami Sosa End Study - Patient Disposition Complications Transferred To No Outpatient Bed
[2016-11-28] MEDS ORDERED: NITROGLYCERIN INJ 5 ML ONE (15:58)
[2016-11-28] MEDS ORDERED: MISC INFORMATION XX ONE (16:00)
--- NOTE | 2016-11-28 16:27 | EKG ---
Date Performed: 11/28/2016 Time Performed: 02:40:48 PTAGE: 46 years EKG: Sinus rhythm LOW QRS VOLTAGE POSSIBLE ANTERIOR MYOCARDIAL INFARCTION INFERIOR MYOCARDIAL INFARCTION MODERATE T-WA VE ABNORMALITY, CONSIDER LATERAL ISCHEMIA ABNORMAL ECG PREVIOUS TRACING : 11/28/2016 00.13 Since previous tracing, no significant change noted DOCTOR: Ousmane Gupta Interpretating Date/Time 11/28/2016 16:25:56
--- NOTE | 2016-11-28 16:28 | EKG ---
Date Performed: 11/28/2016 Time Performed: 00:13:37 PTAGE: 46 years EKG: Sinus rhythm LOW QRS VOLTAGE IN PRECORDIAL LEADS ANTERIOR MYOCARDIAL INFARCTION INFERIOR MYOCARDIAL INFARCTION MO DERATE T-WAVE ABNORMALITY, CONSIDER LATERAL ISCHEMIA ABNORMAL ECG PREVIOUS TRACING : 11/27/2016 20.20 Since previous tracing, no significant change noted DOCTOR: Ousmane Gupta Interpretating Date/Time 11/28/2016 16:27:12
--- NOTE | 2016-11-28 16:29 | EKG ---
Date Performed: 11/27/2016 Time Performed: 20:20:08 PTAGE: 46 years EKG: SINUS TACHYCARDIA LOW QRS VOLTAGE IN PRECORDIAL LEADS LEFT ANTERIOR FASCICULAR BLOCK POSSIB LE ANTERIOR MYOCARDIAL INFARCTION ABNORMAL ECG PREVIOUS TRACING : 08/05/2016 12.18 Since previous tracing, no significant change noted DOCTOR: Ousmane Gupta Interpretating Date/Time 11/28/2016 16:28:56
--- NOTE | 2016-11-28 16:35 | TR ---
Date Performed: 11/28/2016 Time Performed: 11:58:51 DOCTOR: Ousmane Gupta DRUG LIST: CLINICAL HISTORY: ANGINA REASON FOR TEST: Angina REASON FOR ENDING: OBSERVATION: CONCLUSION: Lexiscan stress test was performed under standard four minute protocol. Radionuclid e was injected one minute prior to ending the test. No electrocardiographic abormalities were present to suggest ischemia. Nuclear imaging and interpretation are pending. COMMENTS:
--- NOTE | 2016-11-28 17:37 | MA ---
cc: ESME HWANG MD, GLENN H. M.D. DATE: 11/28/2016. PROCEDURE PERFORMED: Left heart catheterization, selective coronary angiography, left ventriculography. PROCEDURE NOTE: The patient was brought to the cardiac catheterization laboratory in a fasting state after having signed informed consent. The right radial region was prepped and draped as per policy and anesthetized with 1% lidocaine. Arterial access was obtained via the right radial artery and a 6-Israeli sheath placed. Coronary arteriography was performed using a tiger catheter. Additional views were obtained of the left coronary system with a Shalom left 3.5 catheter. Left ventriculography was done using a multipurpose catheter. There were no apparent immediate complications. A radial artery compression band was applied to the wrist at the end of the case. HEMODYNAMIC RESULTS: Left ventricle 140 with an end-diastolic pressure of 15. Aorta 136/81 with a mean of 106. There was no significant transvalvular aortic gradient on pullback of the pigtail catheter. CORONARY ARTERIOGRAPHY: The left main is a relatively large vessel with minimal luminal irregularities. The left anterior descending gives rise to a small to medium sized first diagonal and very small second diagonal. There is diffuse mildly calcified disease of the proximal LAD resulting in up to 30% stenosis. The mid to distal LAD overall has mild diffuse luminal irregularities. The first diagonal may have up to 30% ostial stenosis. The left circumflex is a medium-sized giving rise to medium-sized first and second obtuse marginals. The first obtuse marginal has ostial to proximal disease which results in up to 50% stenosis. The rest of the left circumflex system has minimal to mild diffuse luminal irregularities. The right coronary artery is a small to medium-sized dominant vessel which is also diffusely diseased. There is up to 45% stenosis proximally and 40% stenosis in its midportion. The posterior descending artery is a relatively small vessel with mild diffuse disease. LEFT VENTRICULOGRAPHY: Contrast injection of the left ventricle reveals no definite segmental wall motion abnormalities. Ejection fraction is estimated at 50%. CONCLUSIONS: 1. Mild to moderate three-vessel coronary artery disease with no definite high-grade stenosis. 2. Low normal left ventricular systolic function with estimated ejection fraction of 50% present. MD KATE Roper/JCRaghavendra /3:39 PM /5:25 PM MTDD
[2016-11-28 18:27] LABS: HEMATOCRIT 38.3 % (39.0-51.0); MEAN CELL VOLUME 106.3 FL (80.0-100.0); MEAN CORPUSCULAR HEMOGLOBIN 35.7 PG (27.0-34.0); MEAN CORPUSCULAR HGB CONC 33.6 % (32.0-36.0); PLATELET COUNT 44 TH/MM3 (150-450); RED BLOOD COUNT 3.61 MIL/MM3 (4.50-5.90); RED CELL DISTRIBUTION WIDTH 21.9 % (11.6-17.2); WHITE BLOOD COUNT 3.9 TH/MM3 (4.0-11.0)
--- NOTE | 2016-11-28 18:29 | PD.CONS ---
HPI Service [facility] Hospitalists Consult Requested By Dr. Maldonado Reason for Consult Medical management Primary Care Physician Gladys Tavarez D.O. Diagnoses: History of Present Illness This a 46-year-old white male with significant past medical history coronary artery disease, hypertension, hyperlipidemia, daily alcohol use, COPD. Patient presented to the emergency room yesterday with complaint of chest pain associated with nausea and shortness of breath. He was initially admitted to the chest pain center where he had a stress test that was positive. Dr. Maldonado was consulted and he underwent a cardiac catheterization that showed mild to moderate three-vessel disease and EF of 50%. The recommendation is to treat medically. Patient denies any chest pain at this time, no shortness of breath. Incidentally he was noted with platelet count of 67,000, this appears to be a new finding. Patient denies any prior history of thrombocytopenia. He denies any bleeding. Hospitalist services are requested for medical management. Review of Systems Constitutional: DENIES: Diaphoretic episodes, Fatigue, Fever, Weight gain, Weight loss, Chills, Dizziness, Change in appetite, Night Sweats Endocrine: DENIES: Heat/cold intolerance, Polydipsia, Polyuria, Polyphagia Eyes: DENIES: Blurred vision, Diplopia, Eye inflammation, Eye pain, Vision loss , Photosensitivity, Double Vision Ears, nose, mouth, throat: DENIES: Tinnitus, Hearing loss, Vertigo, Nasal discharge, Oral lesions, Throat pain, Hoarseness, Ear Pain, Running Nose, Epistaxis, Sinus Pain, Toothache, Odynophagia Respiratory: DENIES: Apneas, Cough, Snoring, Wheezing, Hemoptysis, Sputum production, Shortness of breath Cardiovascular: COMPLAINS OF: Chest pain (resolved ), DENIES: Palpitations, Syncope, Dyspnea on Exertion, PND, Lower Extremity Edema, Orthopnea, Claudication Gastrointestinal: DENIES: Abdominal pain, Black stools, Bloody stools, Constipation, Diarrhea, Nausea, Vomiting, Difficulty Swallowing, Anorexia Genitourinary: DENIES: Sexual dysfunction, Urinary frequency, Urinary incontinence, Urgency, Hematuria, Dysuria, Nocturia, Penile Discharge, Testicular Pain, Testicular Swelling Musculoskeletal: DENIES: Joint pain, Muscle aches, Stiffness, Joint Swelling, Back pain, Neck pain Integumentary: DENIES: Abnormal pigmentation, Nail changes, Pruritus, Rash Hematologic/lymphatic: DENIES: Bruising, Lymphadenopathy Immunologic/allergic: DENIES: Eczema, Urticaria Neurologic: DENIES: Abnormal gait, Headache, Localized weakness, Paresthesias, Seizures, Speech Problems, Tremor, Poor Balance Psychiatric: DENIES: Anxiety, Confusion, Mood changes, Depression, Hallucinations, Agitation, Suicidal Ideation, Homicidal Ideation, Delusions Past Family Social History Past Medical History 1. Coronary artery disease. 2. He had a previous catheterization January 28, 2013 showing a stenosis of the proximal mid LAD and felt to be about 50% by ultrasound. 3. He has had a gastric bypass in 2005. 4. He has had a loop recorder implantation. 5. ETOH abuse 6. COPD. 7. Depression, 8. Hyperlipidemia. 9. Hypertension. 10. Sleep apnea. 11. DVT no longer on anticoagulation Reported Medications Reported Meds & Active Scripts Active Ventolin Hfa 18 GM Inh (Albuterol Sulfate) 90 Mcg/Act Aer 2 Puff INH Q6H PRN Reported Gabapentin 300 Mg Cap 300 Mg PO HS Aspirin 81 Mg Chew 81 Mg CHEW DAILY Seroquel (Quetiapine Fumarate) 300 Mg Tab 300 Mg PO HS Allergies: Coded Allergies: No Known Allergies (Verified , 06/12/15) Active Ordered Medications Inpatient Medications Albuterol/ Ipratropium (Duoneb Neb) 1 ampule Q15M INH Last administered on 11/27 20:31; Start 11/27/16 at 20:30; Stop 11/27/16 at 20:46; Status DC Aspirin (Aspirin) 325 mg DAILY PO ; Start 11/28/16 at 14:15 Atorvastatin Calcium (Lipitor) 20 mg DAILY PO ; Start 11/28/16 at 14:15 Metoprolol Tartrate (Lopressor) 25 mg Q12HR PO ; Start 11/28/16 at 14:15 Miscellaneous Information 1 ONCE ONCE XX ; Start 11/28/16 at 16:00; Stop at 16:01; Status DC Potassium Chloride (KCl) 20 meq NOW ONCE PO Last administered on 11/28/16 10: 30; Start 11/28/16 at 10:30; Stop 11/28/16 at 10:40; Status DC Sodium Chloride 1,000 ml @ 125 mls/hr Q8H IV ; Start 11/28/16 at 13:57; Stop at 21:56 Sodium Chloride (NS Flush) 2 ml UNSCH PRN IV FLUSH FLUSH AFTER USING IV ACCESS ; Start 11/27/16 at 23:00 Family History Positive for heart disease in his brother who had a heart attack and is . There is also a history of heart disease in the father and mother. Social History , has children. Smoke 1 ppd (he was smoking 3ppd x 25 years), drinks 6 glasses of wine a day, no illegal drug use Physical Exam Vital Signs Vital Signs Date Time Temp Pulse Resp B/P (MAP) Pulse Ox O2 Delivery O2 Flow Rate FiO2 11/28/16 08:31 98.2 74 20 132/75 (94) 93 11/28/16 08:04 94 21 11/28/16 04:53 98.1 77 18 133/77 (95) 94 11/28/16 01:21 75 11/28/16 00:57 98.4 79 20 127/76 (93) 96 11/28/16 00:27 11/28/16 00:15 86 16 125/74 (91) 98 Nasal Cannula 4.00 11/27/16 23:00 82 17 125/72 (89) 98 Nasal Cannula 4.00 11/27/16 22:58 99 Nasal Cannula 2.00 11/27/16 22:00 98 116/79 (91) 99 Nasal Cannula 11/27/16 21:00 102 119/77 (91) 98 Nasal Cannula 11/27/16 20:30 96 16 132/67 (88) 99 Nasal Cannula 4.00 11/27/16 20:25 98 15 131/72 (91) 96 Nasal Cannula 4.00 11/27/16 20:25 96 Nasal Cannula 4.00 11/27/16 20:15 104 20 143/83 (103) 96 Nasal Cannula 4.00 11/27/16 20:10 100 Room Air 2.00 11/27/16 20:09 98.0 104 20 143/83 (103) 94 Physical Exam GENERAL: This is a well-nourished, well-developed patient, in no apparent distress. SKIN: No rashes, ecchymoses or lesions. Cool and dry. HEAD: Atraumatic. Normocephalic. No temporal or scalp tenderness. EYES: Pupils equal round and reactive. Extraocular motions intact. No scleral icterus. No injection or drainage. ENT: Nose without bleeding, purulent drainage or septal hematoma. Throat without erythema, tonsillar hypertrophy or exudate. Uvula midline. Airway patent. NECK: Trachea midline. No JVD or lymphadenopathy. Supple, nontender, no meningeal signs. CARDIOVASCULAR: Regular rate and rhythm without murmurs, gallops, or rubs. RESPIRATORY: Clear to auscultation. Breath sounds equal bilaterally. No wheezes , rales, or rhonchi. GASTROINTESTINAL: Abdomen soft, non-tender, nondistended. No hepato-splenomegaly , or palpable masses. No guarding. MUSCULOSKELETAL: Extremities without clubbing, cyanosis, or edema. No joint tenderness, effusion, or edema noted. No calf tenderness. Negative Homans sign bilaterally. NEUROLOGICAL: Awake and alert. Cranial nerves II through XII intact. Motor and sensory grossly within normal limits. Five out of 5 muscle strength in all muscle groups. Normal speech. Laboratory Laboratory Tests Test 11/27/16 20:20 11/28/16 00:05 11/28/16 02:10 11/28/16 08:44 White Blood Count 4.2 Red Blood Count 3.73 Hemoglobin 13.2 Hematocrit 39.1 Mean Corpuscular Volume 104.8 Mean Corpuscular Hemoglobin 35.5 Mean Corpuscular Hemoglobin Concent 33.9 Red Cell Distribution Width 20.4 Platelet Count 67 Mean Platelet Volume 10.6 Neutrophils (%) (Auto) 67.6 Lymphocytes (%) (Auto) 16.0 Monocytes (%) (Auto) 14.6 Eosinophils (%) (Auto) 0.8 Basophils (%) (Auto) 1.0 Neutrophils # (Auto) 2.8 Lymphocytes # (Auto) 0.7 Monocytes # (Auto) 0.6 Eosinophils # (Auto) 0.0 Basophils # (Auto) 0.0 CBC Comment AUTO DIFF Differential Comment AUTO DIFF CONFIRMED Platelet Estimate LOW Platelet Morphology Comment NORMAL Ovalocytes 1+ Acanthocytes OCC Keratocytes OCC Blood Urea Nitrogen 7 Creatinine 0.68 Random Glucose 102 Calcium Level 8.7 Magnesium Level 1.8 Sodium Level 132 Potassium Level 3.3 Chloride Level 94 Carbon Dioxide Level 20.1 Anion Gap 18 Estimat Glomerular Filtration Rate 126 Total Creatine Kinase 56 47 50 Troponin I LESS THAN 0.02 LESS THAN 0.02 LESS THAN 0.02 D-Dimer Quantitative (PE/DVT) 0.30 Test 11/28/16 17:53 Result Diagram: 11/27/16201911/27/162019 Imaging Last Impressions Myocardial Perfusion Scan Nuc Med 11/28/16 0000 Signed Impressions: Service Date/Time: November 11:21 - CONCLUSION: 1. Focal reversal perfusion defects at stress in the anterior and lateral castillo near the base. 2. No focal wall motion abnormality with reduced EF of 57%%. RISK CATEGORY: Low (<1%% Annual Mortality Rate) Lobo Dupont MD Chest X-Ray 11/27/162016 Signed Impressions: Service Date/Time: Sunday, November 27, 2016 20:44 - CONCLUSION: 1. No acute findings. Serjio Bailey MD A/P Diagnosis: (1) Chest pain ICD Codes: R07.9 - Chest pain, unspecified Status: Acute (2) Thrombocytopenia ICD Codes: D69.6 - Thrombocytopenia, unspecified Status: Acute (3) CAD (coronary artery disease) ICD Codes: I25.10 - Atherosclerotic heart disease of [place] coronary artery without angina pectoris Status: Chronic (4) Alcohol abuse ICD Codes: F10.10 - Alcohol abuse, uncomplicated Status: Chronic (5) Tobacco abuse ICD Codes: Z72.0 - Tobacco use Status: Chronic (6) COPD (chronic obstructive pulmonary disease) ICD Codes: J44.9 - Chronic obstructive pulmonary disease, unspecified Status: Chronic Assessment and Plan Thank you for this consultation, we will assist with medical management. 46-year-old male presented with chest pain, had stress test that was positive. A status post cardiac catheterization showing mild to moderate three-vessel disease and EF of 50%. -Continue with medical management, cardiology input is appreciated. -Continue with aspirin, statin, beta julia -Patient is counseled to quit smoking Thrombocytopenia, appears to be a new finding, etiology unclear -Repeat CBC in the morning -If platelets remain low, he will require evaluation by hematology COPD Tobacco abuse -Tobacco abuse counseling done, patient indicates he has cut down to one pack a day from 3 -Continue albuterol inhaler as needed Alcohol abuse -Patient is counseled about alcohol use and to limit quantity or to abstain completely -We will order Librium as needed for withdrawal symptoms -Add Folic acid and and thiamine by mouth Home medications are reviewed, initiated as indicated SCDs for DVT prophylaxis Plan of care has been discussed with the patient, attending and registered nurse. Further management of the patient will be dependent on the hospital course If patient remains stable and platelets are trending upward, he will likely be discharged in the morning. This patient was seen by myself and Dr. Lynn, this consultation is written on his behalf Problem Qualifiers (1) Chest pain: Qualified Codes: R07.9 - Chest pain, unspecified (2) CAD (coronary artery disease): Qualified Codes: I25.10 - Atherosclerotic heart disease of [place] coronary artery without angina pectoris (3) COPD (chronic obstructive pulmonary disease): Qualified Codes: J44.1 - Chronic obstructive pulmonary disease with (acute) exacerbation Gina David [facility] Nov 28, 2016 18:29
[2016-11-28] MEDS ORDERED: ALBUTEROL SULFATE 90 MCG/ACT HFA 8 GM INHALER INH PRN (18:30)
[2016-11-28 18:34] LABS: REVIEW FLAG AUTO DIFF
[2016-11-28] MEDS: GABAPENTIN 300 MG CAP PO SCH (20:48)
[2016-11-28] MEDS: METOPROLOL TARTRATE 25 MG TAB PO SCH ×2 (20:48→21:00)
[2016-11-28] MEDS: QUEtiapine FUMARATE 300 MG TAB PO SCH (20:56)
[2016-11-29] VITALS (8 sets, daily range): BP systolic 105–141; BP diastolic 69–86; PULSE 72–86; RESP 16–18; TEMP 97.5–98.2; O2SAT 93–98
--- NOTE | 2016-11-29 05:43 | MB ---
cc: EM EARL MD DATE OF CONSULTATION 11/28/2016 DATE OF 1970 HISTORY OF PRESENT ILLNESS Mr. Espinosa is a 46-year-old man who presented to the emergency room on November 27 with a one-day history of left-sided chest pain, nausea and shortness of breath. He was evaluated by the cardiology service as he had a nuclear stress test which showed evidence of anterior and lateral ischemia. He was taken for heart catheterization which showed mild to moderate three-vessel coronary artery disease with no definitive high-grade stenosis and low-normal left ventricular systolic function with estimated ejection fraction of 50%. Hematology Service is consulted for evaluation of new thrombocytopenia. On review of his CBCs, his CBC from admission on November 27 showed a white blood cell count of 4.2, hemoglobin of 13.2 and MCV of 104.8, a platelet count of 67,000 and an ANC of 2.8. CBC from November 28 shows a white blood cell count of 3.9, a hemoglobin of 12.9, MCV of 106.3 and a platelet count of 44,000. Previously his white blood cell count had been within normal limits or elevated but returning to normal during past hospitalizations. His hemoglobin in the past has been within normal limits with an average range of approximately 14 and his platelet count in the past has been within normal limits with an average value of around 200,000. However, in 2012 he did have some lower values around 100,000 during a hospital stay. Chemistry studies show a low sodium at 132, a potassium at 3.3, creatinine within normal limits at 0.68. PAST MEDICAL HISTORY 1. Coronary artery disease. 2. Hypertension. 3. Hyperlipidemia. 4. Alcohol abuse. 5. COPD. 6. Diabetes. PAST SURGICAL HISTORY Gastric bypass approximately 10 years ago. SOCIAL HISTORY The patient lives in [place] and he has a good support system. He has smoked one pack per day since the age of 13 and he uses alcohol, he says about 6 glasses of wine per night. 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 FAMILY HISTORY Mother from heart disease. Brother from heart disease. Dad from lung cancer. ALLERGIES No known drug allergies. REVIEW OF SYSTEMS A 14-point review of systems conducted. NEUROLOGIC: Positive for tingling in his bilateral feet. All other review of systems negative. PHYSICAL EXAMINATION CONSTITUTIONAL: Well-developed, well-nourished man in no distress. EYES: No scleral icterus. EARS, NOSE, AND THROAT: Oropharynx clear. NECK: Supple with no palpable lymphadenopathy. CARDIOVASCULAR: Regular rate and rhythm with no murmur. RESPIRATORY: Clear to auscultation bilaterally. GI: Soft, non-tender, non-distended with bowel sounds present. MUSCULOSKELETAL: Good muscle tone. SKIN: No bruises or bleeding. NEUROLOGIC: No focal deficits. PSYCH: Appropriate mood and affect. ASSESSMENT AND PLAN 1. Thrombocytopenia, likely multifactorial with alcohol abuse being the leading factor that is contributing. We will check vitamin B12, folate and iron profile. We will check an abdominal ultrasound to evaluate liver and spleen. We will order a CMP to evaluate liver studies. We will check HIV and hepatitis C. Discussed above with patient who is in agreement. 2. Anemia: also likely multifactorial with possible alcohol abuse and nutrient deficiency. Will follow up above studies. Em Earl MD ESTHER/SSB /8:42 PM /5:26 AM GIOVANNA
[2016-11-29] MEDS: THIAMINE HCL 100 MG TAB PO SCH (08:32)
[2016-11-29] MEDS: FOLIC ACID 1 MG TAB PO SCH (08:32)
[2016-11-29] MEDS: ATORVASTATIN 20 MG TAB PO SCH (08:33)
[2016-11-29] MEDS: ASPIRIN 325 MG TAB PO SCH (08:33)
[2016-11-29 08:35] LABS: AUTOMATED NEUTROPHIL # 1.5 TH/MM3 (1.8-7.7); BASOPHIL % 0.7 % (0.0-2.0); EOSINOPHIL # 0.1 TH/MM3 (0-0.4); EOSINOPHIL % 2.3 % (0.0-4.0); HEMATOCRIT 38.9 % (39.0-51.0); LYMPH % 29.9 % (9.0-44.0); LYMPHOCYTE # 0.8 TH/MM3 (1.0-4.8); MEAN CELL VOLUME 105.9 FL (80.0-100.0); MEAN CORPUSCULAR HEMOGLOBIN 35.7 PG (27.0-34.0); MEAN CORPUSCULAR HGB CONC 33.7 % (32.0-36.0); NEUT % 55.1 % (16.0-70.0); PLATELET COUNT 51 TH/MM3 (150-450); RED BLOOD COUNT 3.67 MIL/MM3 (4.50-5.90); RED CELL DISTRIBUTION WIDTH 20.9 % (11.6-17.2); WHITE BLOOD COUNT 2.7 TH/MM3 (4.0-11.0)
[2016-11-29 08:39] LABS: APTT (PATIENT) 28.7 SEC (24.3-30.1); INTERNATIONAL NORMALIZED RATIO 1.1 RATIO; PROTHROMBIN TIME - PATIENT 12.4 SEC (9.8-11.6)
[2016-11-29 08:50] LABS: ANION GAP 10 MEQ/L (5-15); AST (GOT) 135 U/L (15-37); BICARBONATE 27.8 MEQ/L (21.0-32.0); BLOOD UREA NITROGEN 7 MG/DL (7-18); CHLORIDE 96 MEQ/L (98-107); GLOMERULAR FILTRATION RATE 99 ML/MIN (>89); SODIUM (NA) 134 MEQ/L (136-145)
[2016-11-29 08:51] LABS: HEMO FLAGS AUTO DIFF
[2016-11-29 09:15] LABS: ALKALINE PHOSPHATASE 54 U/L (45-117); ALT (GPT) 137 U/L (12-78); FERRITIN 342 NG/ML (26-388); LDH SERUM 211 U/L (87-241); TOTAL BILIRUBIN ADULT 2.3 MG/DL (0.2-1.0); TRANSFERRIN IRON PROFILE 162 MG/DL (200-360)
[2016-11-29] MEDS ORDERED: POTASSIUM CHLORIDE 25 MEQ EFFERVESCENT TAB PO ONE (09:30)
--- NOTE | 2016-11-29 09:39 | HHI.PR ---
Subjective Subjective Remarks no cp no sob no n/v BP 110s tele-SR concerned about low plat. and poss liver disease, states he will stop drinking Review of Systems Constitutional Constitutional Remarks 12 point ros completed, negative except as noted above Vitals/Results Vital Signs Vital Signs Date Time Temp Pulse Resp B/P (MAP) Pulse Ox O2 Delivery O2 Flow Rate FiO2 11/29/16 08:01 94 11/29/16 04:00 98.0 78 16 119/74 (89) 94 11/29/16 00:00 97.5 76 18 141/83 (102) 96 11/28/16 23:25 21 11/28/16 20:00 100 11/28/16 20:00 97.7 78 16 139/80 (99) 96 11/28/16 18:15 98.0 73 18 117/68 (84) 97 11/28/16 16:02 97.4 71 18 133/82 (99) 96 CBC/BMP: 11/29/16 0720 11/29/16 0720 Lab Results Laboratory Tests Test 11/28/16 17:53 11/29/16 07:20 White Blood Count 3.9 TH/MM3 2.7 TH/MM3 Red Blood Count 3.61 MIL/MM3 3.67 MIL/MM3 Hemoglobin 12.9 GM/DL 13.1 GM/DL Hematocrit 38.3 % 38.9 % Mean Corpuscular Volume 106.3 FL 105.9 FL Mean Corpuscular Hemoglobin 35.7 PG 35.7 PG Mean Corpuscular Hemoglobin Concent 33.6 % 33.7 % Red Cell Distribution Width 21.9 % 20.9 % Platelet Count 44 TH/MM3 51 TH/MM3 Mean Platelet Volume 9.5 FL 10.3 FL Neutrophils (%) (Auto) 55.1 % Lymphocytes (%) (Auto) 29.9 % Monocytes (%) (Auto) 12.0 % Eosinophils (%) (Auto) 2.3 % Basophils (%) (Auto) 0.7 % Neutrophils # (Auto) 1.5 TH/MM3 Lymphocytes # (Auto) 0.8 TH/MM3 Monocytes # (Auto) 0.3 TH/MM3 Eosinophils # (Auto) 0.1 TH/MM3 Basophils # (Auto) 0.0 TH/MM3 CBC Comment AUTO DIFF Blood Smear Pathologist Review Haptoglobin 24 MG/DL Prothrombin Time 12.4 SEC Prothromb Time International Ratio 1.1 RATIO Activated Partial Thromboplast Time 28.7 SEC Blood Urea Nitrogen 7 MG/DL Creatinine 0.84 MG/DL Random Glucose 91 MG/DL Total Protein 6.4 GM/DL Albumin 3.7 GM/DL Calcium Level 9.0 MG/DL Alkaline Phosphatase 54 U/L Aspartate Amino Transf (AST/SGOT) 135 U/L Alanine Aminotransferase (ALT/SGPT) 137 U/L Lactate Dehydrogenase 211 U/L Total Bilirubin 2.3 MG/DL Sodium Level 134 MEQ/L Potassium Level 3.0 MEQ/L Chloride Level 96 MEQ/L Carbon Dioxide Level 27.8 MEQ/L Anion Gap 10 MEQ/L Estimat Glomerular Filtration Rate 99 ML/MIN Iron Level 189 MCG/DL Total Iron Binding Capacity 227 MCG/DL Percent Iron Saturation 83.3 % Ferritin 342 NG/ML Vitamin B12 Level 333 PG/ML Folate 2.3 NG/ML Thyroid Stimulating Hormone 3rd Gen 8.020 uIU/ML Physical Exam General General Appearance: Well Developed, Well Nourished, No Acute Distress, Comfortable Eyes Eye Exam: Pupils Equal, Pupils Reactive Ears & Nose Ears & Nose Exam: Nasal Mucosa [place] Throat Throat Exam: Oral Mucosa [place] & Moist Neck Neck Exam: Neck Supple, Trachea Midline Pulmonary Resp Exam: Clear Bilaterally, No Distress Cardiology CV Exam: Normal Sinus Rhythm, Good Perfusion Gastrointestinal/Abdomen GI Exam: Soft, Non-Tender, Bowel Sounds Present, Non-Distended Musculoskeletal MS Exam: Joints Intact Integumentary Skin Exam: Warm, Dry Extremeties Extremities Exam: No Edema, Pedal Pulses Palpable Neurologic Neuro Exam: Alert, Awake, Oriented, Speech Clear, Moving All Extremities, No Focal Deficits Psychiatric Psych Exam: Appropriate Responses VTE Prophylaxis VTE Prophylaxis Device: SCDs Assessment/Plan Problem List: (1) Chest pain ICD Codes: R07.9 - Chest pain, unspecified Status: Acute (2) CAD (coronary artery disease) ICD Codes: I25.10 - Atherosclerotic heart disease of [place] coronary artery without angina pectoris Status: Chronic (3) Thrombocytopenia ICD Codes: D69.6 - Thrombocytopenia, unspecified Status: Acute (4) Tobacco abuse ICD Codes: Z72.0 - Tobacco use Status: Chronic (5) Carpal tunnel syndrome ICD Codes: G56.00 - Carpal tunnel syndrome Status: Acute (6) Alcohol abuse ICD Codes: F10.10 - Alcohol abuse, uncomplicated Status: Chronic (7) COPD (chronic obstructive pulmonary disease) ICD Codes: J44.9 - Chronic obstructive pulmonary disease, unspecified Status: Chronic (8) Transaminitis ICD Codes: R74.0 - Nonspecific elevation of levels of transaminase and lactic acid dehydrogenase [LDH] Status: Acute Assessment/Plan 46-year-old male presented with chest pain, had stress test that was positive. A status post cardiac catheterization showing mild to moderate three-vessel disease and EF of 50%. -Continue with medical management, cardiology input is appreciated. -Continue with aspirin, statin, beta julia. Adjust BB, low BP -Patient is counseled to quit smoking Thrombocytopenia, appears to be a new finding, etiology unclear Leukopenia WBC trending down -Plat 51 -WBC trending down -appreciate heme input, work up in progress. Poss. ETOH -US abd this morning, f/u results Transaminitis ? ETOH -Hep C and HIV pending -abd US pending Elevated TSH -check free T4 COPD Tobacco abuse -Tobacco abuse counseling done, patient indicates he has cut down to one pack a day from 3 -Continue albuterol inhaler as needed Alcohol abuse -Patient is counseled about alcohol use and to limit quantity or to abstain completely -continue Librium as needed for withdrawal symptoms -continue Folic acid and and thiamine by mouth SCDs for DVT prophylaxis continue with heme work up, further rec. per Dr. Ahuja whether work up can be continued as OP in IP CBC in am D/W RN D/W Dr. Lynn D/W pt This patient was seen by myself and Dr. Lynn, this note is written on his behalf Problem Qualifiers (1) Chest pain: Qualified Codes: R07.9 - Chest pain, unspecified (2) CAD (coronary artery disease): Qualified Codes: I25.10 - Atherosclerotic heart disease of [place] coronary artery without angina pectoris (3) COPD (chronic obstructive pulmonary disease): Qualified Codes: J44.1 - Chronic obstructive pulmonary disease with (acute) exacerbation Gina David Nov 29, 2016 09:39
[2016-11-29 09:59] LABS: PLATELET ESTIMATE SMEAR LOW (NORMAL); PLATELET MORPHOLOGY NORMAL (NORMAL)
[2016-11-29 10:00] LABS: SCAN/DIFF AUTO DIFF CONFIRMED
[2016-11-29] MEDS ORDERED: INFLUENZA VIRUS VACCINE (QUADRIVALENT) 0.5 ML SYR IM ONE (10:00)
[2016-11-29] MEDS ORDERED: PNEUMOCOCCAL POLYVALENT INJ 25 MCG/0.5 ML SYR IM ONE (10:00)
--- NOTE | 2016-11-29 10:23 | RADRPT ---
EXAM DATE/TIME: 11/29/2016 09:24 [place] COMPARISON: No previous studies available for comparison. INDICATIONS : Abdominal pain. MEDICAL HISTORY : Chronic obstructive pulmonary disease. Myocardial infarction. Hypercholesterolemia. Seizures. Syncope . Migraines. Angina. Anticoagulant therapy. Hypertension. Restless legs syndrome. Herniated disk. DVT . SURGICAL HISTORY : Cardiac cath. Coronary stents. Gastric bypass. ENCOUNTER: Initial ACUITY: 1 day PAIN SCORE: 0/10 LOCATION: Bilateral upper quadrant MEASUREMENTS: LIVER: 20.5 cm length COMMON DUCT: 3 mm RIGHT KIDNEY: 11.1 x 6.1 x 5.3 cm LEFT KIDNEY: 11.6 x 5.2 x 5.3 cm SPLEEN: 14.5 cm length AORTA: 2.9cm maximal FINDINGS: LIVER: Increased echotexture without focal lesion or ductal dilatation. COMMON DUCT: No intraluminal mass or stone visualized. GALLBLADDER: Contains no stones, demonstrates no wall thickening or pericholecystic fluid. PANCREAS: The visualized portions are within normal limits. RIGHT KIDNEY: No hydronephrosis, stone or mass. There is a simple appearing cyst at the upper pole measuring 17 mm . LEFT KIDNEY: No hydronephrosis, stone or mass. SPLEEN: No focal lesion. Splenule is visualized. AORTA: Non aneurysmal. IVC: Within normal limits. CONCLUSION: 1. No acute abnormality is identified to explain the abdominal pain. 2. Nonacute findings include hepatomegaly with steatosis and mild splenomegaly. Alberto Herrera MD on November 29, 2016 at 10:17 Board Certified Radiologist. This report was verified electronically.
[2016-11-29] MEDS ORDERED: POTASSIUM CHLORIDE 10 MEQ CONTROLLED RELEASE TAB PO ONE (12:00)
--- NOTE | 2016-11-29 19:15 | PD.ONC.PN ---
Subjective Subjective Remarks Mr. Espinosa is sitting in bed in no distress. He reports that he is feeling better. Objective Data Date Time Temp Pulse Resp B/P (MAP) Pulse Ox O2 Delivery O2 Flow Rate FiO2 11/29/16 12:00 98.2 82 18 110/69 (83) 93 11/29/16 08:01 94 11/29/16 08:00 97.9 78 18 105/76 (86) 96 11/29/16 04:00 98.0 78 16 119/74 (89) 94 11/29/16 00:00 97.5 76 18 141/83 (102) 96 11/28/16 23:25 21 11/28/16 20:00 100 11/28/16 20:00 97.7 78 16 139/80 (99) 96 11/29/16 11/29/16 11/29/16 06:59 14:59 22:59 Intake Total 240 ml Output Total 450 ml Balance -210 ml Result Diagram: 11/29/16 0720 11/29/16 0720 Laboratory Results Laboratory Tests Test 11/29/16 07:20 White Blood Count 2.7 TH/MM3 Red Blood Count 3.67 MIL/MM3 Hemoglobin 13.1 GM/DL Hematocrit 38.9 % Mean Corpuscular Volume 105.9 FL Mean Corpuscular Hemoglobin 35.7 PG Mean Corpuscular Hemoglobin Concent 33.7 % Red Cell Distribution Width 20.9 % Platelet Count 51 TH/MM3 Mean Platelet Volume 10.3 FL Neutrophils (%) (Auto) 55.1 % Lymphocytes (%) (Auto) 29.9 % Monocytes (%) (Auto) 12.0 % Eosinophils (%) (Auto) 2.3 % Basophils (%) (Auto) 0.7 % Neutrophils # (Auto) 1.5 TH/MM3 Lymphocytes # (Auto) 0.8 TH/MM3 Monocytes # (Auto) 0.3 TH/MM3 Eosinophils # (Auto) 0.1 TH/MM3 Basophils # (Auto) 0.0 TH/MM3 CBC Comment AUTO DIFF Differential Comment AUTO DIFF CONFIRMED Platelet Estimate LOW Platelet Morphology Comment NORMAL Blood Smear Pathologist Review Haptoglobin 24 MG/DL Prothrombin Time 12.4 SEC Prothromb Time International Ratio 1.1 RATIO Activated Partial Thromboplast Time 28.7 SEC Blood Urea Nitrogen 7 MG/DL Creatinine 0.84 MG/DL Random Glucose 91 MG/DL Total Protein 6.4 GM/DL Albumin 3.7 GM/DL Calcium Level 9.0 MG/DL Alkaline Phosphatase 54 U/L Aspartate Amino Transf (AST/SGOT) 135 U/L Alanine Aminotransferase (ALT/SGPT) 137 U/L Lactate Dehydrogenase 211 U/L Total Bilirubin 2.3 MG/DL Sodium Level 134 MEQ/L Potassium Level 3.0 MEQ/L Chloride Level 96 MEQ/L Carbon Dioxide Level 27.8 MEQ/L Anion Gap 10 MEQ/L Estimat Glomerular Filtration Rate 99 ML/MIN Iron Level 189 MCG/DL Total Iron Binding Capacity 227 MCG/DL Percent Iron Saturation 83.3 % Ferritin 342 NG/ML Vitamin B12 Level 333 PG/ML Folate 2.3 NG/ML Free Thyroxine 0.92 NG/DL Thyroid Stimulating Hormone 3rd Gen 8.020 uIU/ML Hepatitis C Antibody NEGATIVE HIV (1&2) Antibody NEGATIVE Imaging Studies Last 24 hours Impressions Abdomen Ultrasound 11/29/16 0000 Signed Impressions: Service Date/Time: Tuesday, November 29, 2016 09:24 - CONCLUSION: 1. No acute abnormality is identified to explain the abdominal pain. 2. Nonacute findings include hepatomegaly with steatosis and mild splenomegaly. Alberto Herrera MD Administered Medications Medications (Trade) Dose Ordered Sig/Deana Route PRN Reason Start Time Stop Time Status Last Admin Dose Admin Atorvastatin Calcium (Lipitor) 20 mg DAILY PO 11/28/16 14:15 11/29/16 08:33 Aspirin (Aspirin) 325 mg DAILY PO 11/28/16 14:15 11/29/16 08:33 Gabapentin (Neurontin) 300 mg HS PO 11/28/16 21:00 11/28/16 20:48 Quetiapine Fumarate (SEROquel) 300 mg HS PO 11/28/16 21:00 11/28/16 20:56 Folic Acid (Folate) 1 mg DAILY PO 11/29/16 09:00 11/29/16 08:32 Thiamine HCl (Vitamin B1) 100 mg DAILY PO 11/29/16 09:00 11/29/16 08:32 Objective Remarks GENERAL: Well-nourished, well-developed patient. SKIN: Warm and dry. HEAD: Normocephalic. EYES: No injection or drainage. RESPIRATORY: No respiratory distress NEUROLOGICAL: No obvious focal deficit. Awake, alert, and oriented x3. PSYCHIATRIC: Appropriate mood and affect; insight and judgment normal. Assessment/Plan Assessment 1. Cytopenia: thrombocytopenia, anemia, neutropenia Hepatomegaly and splenomegaly noted on ultrasound. Hemglobin at baseline with new low WBC and new thrombocytopenia. He has macrocytosis. Hep C negative. HIV pending. Vitamin B12 WNL. Ferritin WNL, however iron level is increased, possibly due to liver injury. TSH elevated, however T4 is WNL Haptoglobin is low; this is synthesized in the liver. LDH WNL Basophilic stippling noted on smear which can be seen with ETOH abuse. Clinical picture is most consistent with cytopenias due to alcohol. Will continue to monitor CBC closely to follow trend. would expect counts to improve over time with etoh cessation. 2. Folate deficiency: continue folate 1mg PO Qdaily 3. Alcoholism: encouraged alcohol cessation. He reports that he was in AA for two years which helped for him to remain sober and he would like to continue with this upon hospital discharge. 4. Mild to moderate CAD presented with chest pain: on ASA, statin, BB. Risk vs benefits of anti platelet therapy in thrombocytopenia anders if value less than 50K. Maia Ahuja MD Nov 29, 2016 19:15
[2016-11-29] MEDS: GABAPENTIN 300 MG CAP PO SCH (22:08)
[2016-11-29] MEDS: QUEtiapine FUMARATE 300 MG TAB PO SCH (22:08)
[2016-11-29] MEDS: METOPROLOL TARTRATE 25 MG TAB PO SCH (22:09)
[2016-11-30] VITALS (14 sets, daily range): BP systolic 115–150; BP diastolic 80–102; PULSE 91–143; RESP 20–32; TEMP 97.7–98.9; O2SAT 75–99
[2016-11-30] MEDS ORDERED: FLUMAZENIL 0.5 MG/5 ML VIAL IV PUSH PRN (00:15)
[2016-11-30] MEDS ORDERED: LORazepam 2 MG TAB PO PRN (00:15)
[2016-11-30] MEDS ORDERED: LORazepam 1 MG TAB PO PRN (00:15)
[2016-11-30] MEDS: LORazepam 2 MG/ML VIAL IV PUSH PRN ×17 (00:22→21:24)
[2016-11-30] MEDS ORDERED: CHLORHEXIDINE GLUCONATE 2 % 1 PACK (2 CLOTHS)(extra cloths) TOPICAL PRN (02:45)
[2016-11-30 03:14] LABS: BACTERIA, URINE RARE /hpf; BLOOD, URINE NEG (NEG); GLUCOSE,URINE 70 mg/dL (NEG); HYALINE CAST, URINE 3 /lpf (RARE); KETONE, URINE TRACE mg/dL (NEG); MUCUS URINE MANY /lpf (OCC); NITRITE,URINE NEG (NEG); PH, URINE 6.5 (5.0-8.5)
[2016-11-30 03:16] LABS: COMMENT (UR) CATH-CULTURE IND; CULTURE IF INDICATED CATH CULTURE IND; URINE COLOR LIGHT-BROWN (YELLW/STRAW)
[2016-11-30] MEDS: CHLORHEXIDINE GLUCONATE 2 % 1 PACK (2 CLOTHS)(taper/protocol) TOPICAL SCH (04:00)
[2016-11-30 06:07] LABS: BASOPHIL % 0.2 % (0.0-2.0); HEMATOCRIT 37.7 % (39.0-51.0); LYMPH % 19.9 % (9.0-44.0); LYMPHOCYTE # 0.9 TH/MM3 (1.0-4.8); MEAN CELL VOLUME 107.3 FL (80.0-100.0); MEAN CORPUSCULAR HEMOGLOBIN 35.9 PG (27.0-34.0); MEAN CORPUSCULAR HGB CONC 33.5 % (32.0-36.0); MONO % 10.5 % (0.0-8.0); NEUT % 68.4 % (16.0-70.0); PLATELET COUNT 50 TH/MM3 (150-450); RED BLOOD COUNT 3.51 MIL/MM3 (4.50-5.90); RED CELL DISTRIBUTION WIDTH 21.1 % (11.6-17.2); WHITE BLOOD COUNT 4.3 TH/MM3 (4.0-11.0)
[2016-11-30 06:08] LABS: RETIC % 1.3 % (0.4-3.0)
[2016-11-30 06:40] LABS: HEMO FLAGS AUTO DIFF; REVIEW FLAG FINAL
[2016-11-30 07:08] LABS: ANION GAP 10 MEQ/L (5-15); AST (GOT) 145 U/L (15-37); BICARBONATE 26.8 MEQ/L (21.0-32.0); BLOOD UREA NITROGEN 11 MG/DL (7-18); CHLORIDE 98 MEQ/L (98-107); GLOMERULAR FILTRATION RATE 122 ML/MIN (>89); LDH SERUM 217 U/L (87-241); POTASSIUM 3.1 MEQ/L (3.5-5.1); SODIUM (NA) 135 MEQ/L (136-145)
[2016-11-30 07:16] LABS: ALKALINE PHOSPHATASE 55 U/L (45-117); ALT (GPT) 125 U/L (12-78); TOTAL BILIRUBIN ADULT 1.8 MG/DL (0.2-1.0)
[2016-11-30] MEDS ORDERED: ICU - MAGNESIUM OXIDE 400 MG TAB PO PRN (09:15)
[2016-11-30] MEDS ORDERED: ICU - CALL ORDERING PHYSICIAN PRN (09:15)
[2016-11-30] MEDS ORDERED: ICU - POTASSIUM PHOSPHATE MONOBASIC 500 MG TAB PO PRN (09:15)
[2016-11-30] MEDS ORDERED: ICU - SODIUM PHOSPHATE 30 MMOL/NS 250 ML IV PRN ×2 (09:15)
[2016-11-30] MEDS ORDERED: POTASSIUM CHLORIDE 25 MEQ EFFERVESCENT TAB PO PRN (09:15)
[2016-11-30] MEDS ORDERED: ICU - D/C ICU ELECTROLYTE ORDERS PRN (09:15)
[2016-11-30] MEDS ORDERED: ICU - POTASSIUM PHOSPHATE 30 MMOL/NS 250 ML IV PRN ×2 (09:15)
[2016-11-30] MEDS ORDERED: ICU - MAGNESIUM SULFATE 4 GM/NS 100 ML IV PRN ×2 (09:15)
[2016-11-30] MEDS ORDERED: ICU - MAGNESIUM SULFATE 2 GM/NS 100 ML IV PRN ×2 (09:15)
[2016-11-30] MEDS ORDERED: ICU - POTASSIUM CHLORIDE/AQUEOUS SOLN 40 MEQ/100 ML IVPB IV PRN (09:15)
[2016-11-30] MEDS: THIAMINE HCL 100 MG TAB PO SCH (09:38)
[2016-11-30] MEDS: ASPIRIN 325 MG TAB PO SCH (09:38)
[2016-11-30] MEDS: METOPROLOL TARTRATE 25 MG TAB PO SCH ×2 (09:39→20:06)
[2016-11-30] MEDS: ATORVASTATIN 20 MG TAB PO SCH (09:39)
[2016-11-30] MEDS: FOLIC ACID 1 MG TAB PO SCH (09:42)
[2016-11-30 09:54] LABS: PLATELET ESTIMATE SMEAR LOW (NORMAL); PLATELET MORPHOLOGY NORMAL (NORMAL); SCAN/DIFF AUTO DIFF CONFIRMED
[2016-11-30] MEDS: ICU - POTASSIUM CHLORIDE/AQUEOUS SOLN 20 MEQ/100 ML IVPB IV PRN ×4 (10:05→17:35)
--- NOTE | 2016-11-30 10:54 | HHI.PR ---
Subjective History of Present Illness pt became confused /agitated /tachycardic & tachypneic requiring frequent dose of IV ativen was transferred to [facility] & started on CIWA protocol currently resting in bed in 4 points restraints sedated but arousable /confused Vitals/Results Vital Signs Vital Signs Date Time Temp Pulse Resp B/P (MAP) Pulse Ox O2 Delivery O2 Flow Rate FiO2 11/30/16 07:49 93 Nasal Cannula 4.00 11/30/16 06:00 111 11/30/16 04:00 122 11/30/16 04:00 98.9 122 23 139/94 (109) 96 11/30/16 03:00 98.8 114 25 123/81 (95) 94 11/30/16 03:00 113 11/30/16 00:58 20 11/30/16 00:00 98.2 143 20 124/80 (95) 97 11/29/16 22:57 97 21 11/29/16 16:00 97.8 86 18 121/86 (98) 98 11/29/16 12:00 98.2 82 18 110/69 (83) 93 CBC/BMP: 11/30/16 0546 11/30/16 0546 Lab Results Laboratory Tests Test 11/30/16 02:30 11/30/16 05:46 Urine Color LIGHT-BROWN Urine Turbidity HAZY Urine pH 6.5 Urine Specific Geff 1.035 Urine Protein 30 mg/dL Urine Glucose (UA) 70 mg/dL Urine Ketones TRACE mg/dL Urine Occult Blood NEG Urine Nitrite NEG Urine Bilirubin SMALL Urine Urobilinogen 4.0 MG/DL Urine Leukocyte Esterase NEG Urine RBC 1 /hpf Urine WBC 2 /hpf Urine Bacteria RARE /hpf Urine Hyaline Casts 3 /lpf Urine Mucus MANY /lpf Microscopic Urinalysis Comment CATH-CULTURE IND Nasal Screen MRSA (PCR) MRSA NOT DETECTED White Blood Count 4.3 TH/MM3 Red Blood Count 3.51 MIL/MM3 Hemoglobin 12.6 GM/DL Hematocrit 37.7 % Mean Corpuscular Volume 107.3 FL Mean Corpuscular Hemoglobin 35.9 PG Mean Corpuscular Hemoglobin Concent 33.5 % Red Cell Distribution Width 21.1 % Platelet Count 50 TH/MM3 Mean Platelet Volume 9.9 FL Neutrophils (%) (Auto) 68.4 % Lymphocytes (%) (Auto) 19.9 % Monocytes (%) (Auto) 10.5 % Eosinophils (%) (Auto) 1.0 % Basophils (%) (Auto) 0.2 % Neutrophils # (Auto) 3.0 TH/MM3 Lymphocytes # (Auto) 0.9 TH/MM3 Monocytes # (Auto) 0.5 TH/MM3 Eosinophils # (Auto) 0.0 TH/MM3 Basophils # (Auto) 0.0 TH/MM3 CBC Comment AUTO DIFF Differential Comment AUTO DIFF CONFIRMED Platelet Estimate LOW Platelet Morphology Comment NORMAL Reticulocyte Count 1.3 % Absolute Reticulocyte Count 44.6 MIL/L Blood Urea Nitrogen 11 MG/DL Creatinine 0.70 MG/DL Random Glucose 88 MG/DL Total Protein 6.4 GM/DL Albumin 3.6 GM/DL Calcium Level 9.0 MG/DL Alkaline Phosphatase 55 U/L Aspartate Amino Transf (AST/SGOT) 145 U/L Alanine Aminotransferase (ALT/SGPT) 125 U/L Lactate Dehydrogenase 217 U/L Total Bilirubin 1.8 MG/DL Sodium Level 135 MEQ/L Potassium Level 3.1 MEQ/L Chloride Level 98 MEQ/L Carbon Dioxide Level 26.8 MEQ/L Anion Gap 10 MEQ/L Estimat Glomerular Filtration Rate 122 ML/MIN Phosphorus Level 2.0 MG/DL Microbiology Microbiology 11/30/16 Urine Culture, Received Pending Physical Exam General General Appearance: Well Developed, Well Nourished, Comfortable, Sleeping Eyes Eye Exam: Pupils Equal, Sclera White Ears & Nose Ears & Nose Exam: Nasal Mucosa [place] Throat Throat Exam: Oral Mucosa [place] & Moist Neck Neck Exam: Neck Supple, Trachea Midline Pulmonary Resp Exam: Clear Bilaterally, Breath Sounds Equal, No Distress Cardiology CV Exam: Normal Sinus Rhythm, Good Perfusion Gastrointestinal/Abdomen GI Exam: Soft, Non-Tender, Bowel Sounds Present Musculoskeletal MS Exam: Joints Intact Integumentary Skin Exam: Warm, Dry Extremeties Extremities Exam: No Edema, Pedal Pulses Palpable Neurologic Neuro Exam: Moving All Extremities, No Focal Deficits Neuro Remarks sleepy but arousable , opens eyes follow simple commands than drift back to sleep. VTE Prophylaxis VTE Prophylaxis Device: SCDs Assessment/Plan Problem List: (1) Chest pain ICD Codes: R07.9 - Chest pain, unspecified Status: Acute (2) CAD (coronary artery disease) ICD Codes: I25.10 - Atherosclerotic heart disease of [place] coronary artery without angina pectoris Status: Chronic (3) Thrombocytopenia ICD Codes: D69.6 - Thrombocytopenia, unspecified Status: Acute (4) Tobacco abuse ICD Codes: Z72.0 - Tobacco use Status: Chronic (5) Carpal tunnel syndrome ICD Codes: G56.00 - Carpal tunnel syndrome Status: Acute (6) Alcohol abuse ICD Codes: F10.10 - Alcohol abuse, uncomplicated Status: Chronic (7) COPD (chronic obstructive pulmonary disease) ICD Codes: J44.9 - Chronic obstructive pulmonary disease, unspecified Status: Chronic (8) Transaminitis ICD Codes: R74.0 - Nonspecific elevation of levels of transaminase and lactic acid dehydrogenase [LDH] Status: Acute Assessment/Plan 46-year-old male presented with chest pain, had stress test that was positive. s/p cardiac catheterization showing mild to moderate three-vessel disease and EF of 50%. -Continue with medical management, cardiology input is appreciated. -Continue with aspirin, statin, beta julia. Adjust BB, -Patient is counseled to quit smoking Thrombocytopenia, appears to be a new finding, etiology unclear Leukopenia WBC trending down -Plat 51 -WBC trending down -appreciate heme input, work up in progress. - ETOH induced Ch Liver disease -US abd noted LFT stable -Hep C and HIV are negative - Elevated TSH, free T4 normal COPD Tobacco abuse -stop smoking -Continue albuterol inhaler as needed Alcohol abuse/ -DT - thiamine /folate - CIWA protocol - ativan/librium SCDs for DVT prophylaxis D/W RN will f/u Problem Qualifiers (1) Chest pain: Qualified Codes: R07.9 - Chest pain, unspecified (2) CAD (coronary artery disease): Qualified Codes: I25.10 - Atherosclerotic heart disease of [place] coronary artery without angina pectoris (3) COPD (chronic obstructive pulmonary disease): Qualified Codes: J44.1 - Chronic obstructive pulmonary disease with (acute) exacerbation Chaitanya Lynn MD Nov 30, 2016 10:54
[2016-11-30] MEDS: GABAPENTIN 300 MG CAP PO SCH (20:05)
[2016-11-30] MEDS: QUEtiapine FUMARATE 300 MG TAB PO SCH (20:46)
[2016-12-01] VITALS (13 sets, daily range): BP systolic 103–131; BP diastolic 72–91; PULSE 95–121; RESP 21–39; TEMP 97.2–98.7; O2SAT 89–98
[2016-12-01] MEDS: CHLORHEXIDINE GLUCONATE 2 % 1 PACK (2 CLOTHS)(taper/protocol) TOPICAL SCH (04:00)
[2016-12-01 05:45] LABS: AUTOMATED NEUTROPHIL # 3.5 TH/MM3 (1.8-7.7); BASOPHIL # 0.1 TH/MM3 (0-0.2); BASOPHIL % 1.2 % (0.0-2.0); EOSINOPHIL # 0.1 TH/MM3 (0-0.4); EOSINOPHIL % 1.5 % (0.0-4.0); HEMATOCRIT 42.3 % (39.0-51.0); LYMPH % 11.7 % (9.0-44.0); LYMPHOCYTE # 0.6 TH/MM3 (1.0-4.8); MEAN CELL VOLUME 106.9 FL (80.0-100.0); MEAN CORPUSCULAR HEMOGLOBIN 35.7 PG (27.0-34.0); MEAN CORPUSCULAR HGB CONC 33.4 % (32.0-36.0); MONO % 13.7 % (0.0-8.0); NEUT % 71.9 % (16.0-70.0); PLATELET COUNT 68 TH/MM3 (150-450); RED BLOOD COUNT 3.96 MIL/MM3 (4.50-5.90); RED CELL DISTRIBUTION WIDTH 21.4 % (11.6-17.2); WHITE BLOOD COUNT 4.9 TH/MM3 (4.0-11.0)
[2016-12-01 05:47] LABS: HEMO FLAGS DIFF FINAL
[2016-12-01] MEDS: FOLIC ACID 1 MG TAB PO SCH (09:04)
[2016-12-01] MEDS: ASPIRIN 325 MG TAB PO SCH (09:05)
[2016-12-01] MEDS: ATORVASTATIN 20 MG TAB PO SCH (09:05)
[2016-12-01] MEDS: METOPROLOL TARTRATE 25 MG TAB PO SCH ×2 (09:05→20:25)
[2016-12-01] MEDS: THIAMINE HCL 100 MG TAB PO SCH (09:05)
--- NOTE | 2016-12-01 12:13 | PD.ONC.PN ---
Subjective Subjective Remarks The patient is lethargic but awakens to gentle shaking No acute complaints Her nurse, he has had no bleeding Objective Data Date Time Temp Pulse Resp B/P (MAP) Pulse Ox O2 Delivery O2 Flow Rate FiO2 12/01/16 07:36 94 Nasal Cannula 3.00 12/01/16 06:00 112 12/01/16 04:00 108 12/01/16 04:00 97.4 121 39 131/79 (96) 98 12/01/16 02:00 115 12/01/16 00:00 112 12/01/16 00:00 97.2 112 28 103/72 (82) 96 11/30/16 22:00 125 11/30/16 20:00 98.3 124 32 150/102 (118) 75 11/30/16 20:00 125 11/30/16 18:00 127 11/30/16 16:00 103 11/30/16 16:00 97.7 103 24 150/82 (104) 96 11/30/16 14:00 91 12/01/16 12/01/16 12/01/16 07:00 15:00 23:00 Intake Total 120 ml Output Total 1400 ml Balance -1280 ml Result Diagram: 12/01/16 0450 11/30/16 2199 Laboratory Results Laboratory Tests Test 11/30/16 23:53 12/01/16 04:50 Potassium Level 4.5 MEQ/L White Blood Count 4.9 TH/MM3 Red Blood Count 3.96 MIL/MM3 Hemoglobin 14.1 GM/DL Hematocrit 42.3 % Mean Corpuscular Volume 106.9 FL Mean Corpuscular Hemoglobin 35.7 PG Mean Corpuscular Hemoglobin Concent 33.4 % Red Cell Distribution Width 21.4 % Platelet Count 68 TH/MM3 Mean Platelet Volume 9.9 FL Neutrophils (%) (Auto) 71.9 % Lymphocytes (%) (Auto) 11.7 % Monocytes (%) (Auto) 13.7 % Eosinophils (%) (Auto) 1.5 % Basophils (%) (Auto) 1.2 % Neutrophils # (Auto) 3.5 TH/MM3 Lymphocytes # (Auto) 0.6 TH/MM3 Monocytes # (Auto) 0.7 TH/MM3 Eosinophils # (Auto) 0.1 TH/MM3 Basophils # (Auto) 0.1 TH/MM3 CBC Comment DIFF FINAL Differential Comment Culture Results Microbiology Date/Time Source Procedure Growth Status 11/30/16 02:30 Urine Catheterized Urine Urine Culture - Preliminary NO GROWTH IN 24 HOURS. Resulted Administered Medications Medications (Trade) Dose Ordered Sig/Deana Route PRN Reason Start Time Stop Time Status Last Admin Dose Admin Atorvastatin Calcium (Lipitor) 20 mg DAILY PO 11/28/16 14:15 12/01/16 09:05 Aspirin (Aspirin) 325 mg DAILY PO 11/28/16 14:15 12/01/16 09:05 Gabapentin (Neurontin) 300 mg HS PO 11/28/16 21:00 11/30/16 20:05 Quetiapine Fumarate (SEROquel) 300 mg HS PO 11/28/16 21:00 11/30/16 20:46 Chlordiazepoxide (Librium) 10 mg TID PRN PO anxiety 11/28/16 18:30 11/30/16 21:24 Folic Acid (Folate) 1 mg DAILY PO 11/29/16 09:00 12/01/16 09:04 Thiamine HCl (Vitamin B1) 100 mg DAILY PO 11/29/16 09:00 12/01/16 09:05 Metoprolol Tartrate (Lopressor) 12.5 mg Q12HR PO 11/29/16 21:00 12/01/16 09:05 Lorazepam (Ativan Inj) 1 mg Q4H PRN IV PUSH CIWA 8 - 10 11/30/16 00:15 11/30/16 18:07 Lorazepam (Ativan Inj) 2 mg Q1H PRN IV PUSH CIWA 15-20 11/30/16 00:15 11/30/16 21:24 Lorazepam (Ativan Inj) 2 mg Q15M PRN IV PUSH CIWA > 20 11/30/16 00:15 11/30/16 18:38 Chlorhexidine Gluconate (Chlorhexidine 2% Cloth) 3 pack DAILY@04 TOPICAL 11/30/16 04:00 12/04/16 04:01 12/01/16 04:00 Potassium Chloride 100 ml @ 50 mls/hr UNSCH PRN IV ELECTROLYTE REPLACEMENT 11/30/16 09:15 11/30/16 17:35 Objective Remarks GENERAL: Chronically ill-appearing middle-aged male resting in bed in no acute distress SKIN: Warm and dry. HEAD: Normocephalic. EYES: No injection or drainage. NECK: Supple, trachea midline. CARDIOVASCULAR: deckhand shows sinus tach with rate 110's. RESPIRATORY: Breath sounds equal bilaterally. No accessory muscle use. GASTROINTESTINAL: Abdomen soft, non-tender, nondistended. EXTREMITIES: No cyanosis. In 4-point restraints NEUROLOGICAL: No obvious focal deficit. Awake, alert, and oriented x3. Assessment/Plan Assessment 1. The patient's cytopenias are slowly recovering; his platelets are 68,000 today. 2. The fact that he is recovering since he has been hospitalized supports that the cytopenias were related to the alcoholism. 3. Continue to monitor CBC. Attending Statement The exam, history, and the medical decision-making described in the above note were completed with the assistance of the mid-level provider. I reviewed and agree with the findings presented. I attest that I had a [id number] encounter with the patient on the same day, and personally performed and documented my assessment and findings in the medical record. platelet count recovering. Spleen slightly enlarged on Ultrasound and liver shows fatty infiltration. B12 is normal. HIV and Hepatis C negative. At the present time the thrombocytopenia is felt to be due to etoh. Tahira Meza Dec 01, 2016 12:13 Uzair Torres MD Dec 01, 2016 18:36
--- NOTE | 2016-12-01 14:03 | HHI.PR ---
Subjective History of Present Illness pt was too sedated this am, didnt require sedation last dose Ativan given last night per RN waking up now didnt eat anything so far today decreased UOP I am ok No N/V No abd pain hungry no cp or sob offers no other c/o Vitals/Results Vital Signs Vital Signs Date Time Temp Pulse Resp B/P (MAP) Pulse Ox O2 Delivery O2 Flow Rate FiO2 12/01/16 12:00 96 12/01/16 12:00 98.2 96 22 122/84 (97) 93 12/01/16 10:00 97 12/01/16 08:00 98.7 101 23 127/82 (97) 93 12/01/16 08:00 101 12/01/16 07:36 94 Nasal Cannula 3.00 12/01/16 06:00 112 12/01/16 04:00 108 12/01/16 04:00 97.4 121 39 131/79 (96) 98 12/01/16 02:00 115 12/01/16 00:00 112 12/01/16 00:00 97.2 112 28 103/72 (82) 96 11/30/16 22:00 125 11/30/16 20:00 98.3 124 32 150/102 (118) 75 11/30/16 20:00 125 11/30/16 18:00 127 11/30/16 16:00 103 11/30/16 16:00 97.7 103 24 150/82 (104) 96 CBC/BMP: 12/01/16 0450 11/30/16 2353 Lab Results Laboratory Tests Test 11/30/16 23:53 12/01/16 04:50 Potassium Level 4.5 MEQ/L White Blood Count 4.9 TH/MM3 Red Blood Count 3.96 MIL/MM3 Hemoglobin 14.1 GM/DL Hematocrit 42.3 % Mean Corpuscular Volume 106.9 FL Mean Corpuscular Hemoglobin 35.7 PG Mean Corpuscular Hemoglobin Concent 33.4 % Red Cell Distribution Width 21.4 % Platelet Count 68 TH/MM3 Mean Platelet Volume 9.9 FL Neutrophils (%) (Auto) 71.9 % Lymphocytes (%) (Auto) 11.7 % Monocytes (%) (Auto) 13.7 % Eosinophils (%) (Auto) 1.5 % Basophils (%) (Auto) 1.2 % Neutrophils # (Auto) 3.5 TH/MM3 Lymphocytes # (Auto) 0.6 TH/MM3 Monocytes # (Auto) 0.7 TH/MM3 Eosinophils # (Auto) 0.1 TH/MM3 Basophils # (Auto) 0.1 TH/MM3 CBC Comment DIFF FINAL Differential Comment Physical Exam General General Appearance: Well Developed, Well Nourished, Comfortable Appearance Remarks awake & responsive Eyes Eye Exam: Pupils Equal, Sclera White Ears & Nose Ears & Nose Exam: Nasal Mucosa [place] Throat Throat Exam: Oral Mucosa [place] & Moist Neck Neck Exam: Neck Supple, Trachea Midline Pulmonary Resp Exam: Clear Bilaterally, Breath Sounds Equal, No Distress Cardiology CV Exam: Normal Sinus Rhythm, Good Perfusion Gastrointestinal/Abdomen GI Exam: Soft, Non-Tender, Bowel Sounds Present Musculoskeletal MS Exam: Joints Intact Integumentary Skin Exam: Warm, Dry Extremeties Extremities Exam: No Edema, Pedal Pulses Palpable Neurologic Neuro Exam: Awake, Moving All Extremities Neuro Remarks awake & responsive , calm VTE Prophylaxis VTE Prophylaxis Device: SCDs Assessment/Plan Problem List: (1) Chest pain ICD Codes: R07.9 - Chest pain, unspecified Status: Acute (2) CAD (coronary artery disease) ICD Codes: I25.10 - Atherosclerotic heart disease of [place] coronary artery without angina pectoris Status: Chronic (3) Thrombocytopenia ICD Codes: D69.6 - Thrombocytopenia, unspecified Status: Acute (4) Tobacco abuse ICD Codes: Z72.0 - Tobacco use Status: Chronic (5) Carpal tunnel syndrome ICD Codes: G56.00 - Carpal tunnel syndrome Status: Acute (6) Alcohol abuse ICD Codes: F10.10 - Alcohol abuse, uncomplicated Status: Chronic (7) COPD (chronic obstructive pulmonary disease) ICD Codes: J44.9 - Chronic obstructive pulmonary disease, unspecified Status: Chronic (8) Transaminitis ICD Codes: R74.0 - Nonspecific elevation of levels of transaminase and lactic acid dehydrogenase [LDH] Status: Acute Assessment/Plan 46-year-old male presented with chest pain, had stress test that was positive. s/p cardiac catheterization showing mild to moderate three-vessel disease and EF of 50%. -Continue with medical management, cardiology input is appreciated. -Continue with aspirin, statin, beta julia. Adjust BB, -stop smoking Thrombocytopenia, /Leukopenia d/t Alcoholism, improving -appreciate heme input, - ETOH induced Ch Liver disease -US abd noted LFT stable -Hep C and HIV are negative -stop drinking alcohol -IVF /encourage po intake - d/c velasquez later today Elevated TSH, free T4 normal COPD Tobacco abuse -stop smoking -Continue albuterol inhaler as needed Alcohol abuse/ -s/p DT - thiamine /folate - CIWA protocol - inc librium 25 mg po tid , use IV ativan prn - stop drinking alcohol SCDs for DVT prophylaxis D/W RN will f/u Problem Qualifiers (1) Chest pain: Qualified Codes: R07.9 - Chest pain, unspecified (2) CAD (coronary artery disease): Qualified Codes: I25.10 - Atherosclerotic heart disease of [place] coronary artery without angina pectoris (3) COPD (chronic obstructive pulmonary disease): Qualified Codes: J44.1 - Chronic obstructive pulmonary disease with (acute) exacerbation Chaitanya Lynn MD Dec 01, 2016 14:02
[2016-12-01] MEDS: DEXT 5%-NACL 0.45% 1000 ML INJ 1,000 ML IV SCH ×2 (14:52→22:33)
[2016-12-01] MEDS: QUEtiapine FUMARATE 300 MG TAB PO SCH (20:26)
[2016-12-01] MEDS: GABAPENTIN 300 MG CAP PO SCH (20:26)
[2016-12-02] VITALS (14 sets, daily range): BP systolic 118–189; BP diastolic 69–102; PULSE 83–101; RESP 22–35; TEMP 97.7–98.2; O2SAT 94–99
[2016-12-02] MEDS: LORazepam 2 MG/ML VIAL IV PUSH PRN ×7 (00:07→22:46)
[2016-12-02] MEDS: CHLORHEXIDINE GLUCONATE 2 % 1 PACK (2 CLOTHS)(taper/protocol) TOPICAL SCH (04:00)
[2016-12-02] MEDS: DEXT 5%-NACL 0.45% 1000 ML INJ 1,000 ML IV SCH ×3 (06:21→23:00)
[2016-12-02] MEDS: ASPIRIN 325 MG TAB PO SCH (09:00)
[2016-12-02] MEDS: ATORVASTATIN 20 MG TAB PO SCH (09:42)
[2016-12-02] MEDS: FOLIC ACID 1 MG TAB PO SCH (09:42)
[2016-12-02] MEDS: METOPROLOL TARTRATE 25 MG TAB PO SCH ×2 (09:42→21:36)
[2016-12-02] MEDS: THIAMINE HCL 100 MG TAB PO SCH (09:42)
--- NOTE | 2016-12-02 11:11 | PD.ONC.PN ---
Subjective Subjective Remarks Mr. Espinosa in the ICU in restraints. He is sedated. Objective Data Date Time Temp Pulse Resp B/P (MAP) Pulse Ox O2 Delivery O2 Flow Rate FiO2 12/02/16 10:00 93 12/02/16 08:53 95 21 12/02/16 08:00 100 12/02/16 08:00 97.8 100 23 149/96 (113) 94 12/02/16 07:00 92 Room Air 12/02/16 06:00 88 12/02/16 04:00 98.2 101 23 122/84 (97) 95 12/02/16 04:00 101 12/02/16 02:00 96 12/02/16 00:00 99 12/02/16 00:00 97.9 99 23 118/75 (89) 96 12/01/16 22:00 96 12/01/16 21:51 93 Simple Mask 8.00 12/01/16 20:00 97.6 120 25 112/75 (87) 89 12/01/16 20:00 120 12/01/16 18:00 101 12/01/16 16:00 98.2 95 21 126/91 (103) 96 12/01/16 16:00 95 12/01/16 14:00 95 12/01/16 12:00 96 12/01/16 12:00 98.2 96 22 122/84 (97) 93 12/02/16 12/02/16 12/02/16 06:59 14:59 22:59 Intake Total 1060 ml Output Total 1150 ml Balance -90 ml Result Diagram: 12/01/16 0450 11/30/16 7193 Culture Results Microbiology Date/Time Source Procedure Growth Status 11/30/16 02:30 Urine Catheterized Urine Urine Culture - Final <10,000 CFU/ML MIXED GRAM POSITIVE FL... Complete Administered Medications Medications (Trade) Dose Ordered Sig/Deana Route PRN Reason Start Time Stop Time Status Last Admin Dose Admin Atorvastatin Calcium (Lipitor) 20 mg DAILY PO 11/28/16 14:15 12/02/16 09:42 Aspirin (Aspirin) 325 mg DAILY PO 11/28/16 14:15 12/01/16 09:05 Gabapentin (Neurontin) 300 mg HS PO 11/28/16 21:00 12/01/16 20:26 Quetiapine Fumarate (SEROquel) 300 mg HS PO 11/28/16 21:00 12/01/16 20:26 Folic Acid (Folate) 1 mg DAILY PO 11/29/16 09:00 12/02/16 09:42 Thiamine HCl (Vitamin B1) 100 mg DAILY PO 11/29/16 09:00 12/02/16 09:42 Metoprolol Tartrate (Lopressor) 12.5 mg Q12HR PO 11/29/16 21:00 12/02/16 09:42 Lorazepam (Ativan Inj) 1 mg Q4H PRN IV PUSH CIWA 8 - 10 11/30/16 00:15 11/30/16 18:07 Lorazepam (Ativan Inj) 2 mg Q2H PRN IV PUSH CIWA 11-14 11/30/16 00:15 12/02/16 06:19 Lorazepam (Ativan Inj) 2 mg Q1H PRN IV PUSH CIWA 15-20 11/30/16 00:15 12/02/16 03:51 Lorazepam (Ativan Inj) 2 mg Q15M PRN IV PUSH CIWA > 20 11/30/16 00:15 11/30/16 18:38 Chlorhexidine Gluconate (Chlorhexidine 2% Cloth) 3 pack DAILY@04 TOPICAL 11/30/16 04:00 12/04/16 04:01 12/02/16 04:00 Potassium Chloride 100 ml @ 50 mls/hr UNSCH PRN IV ELECTROLYTE REPLACEMENT 11/30/16 09:15 11/30/16 17:35 Dextrose/Sodium Chloride 1,000 ml @ 125 mls/hr Q8H IV 12/01/16 15:00 12/02/16 06:21 Objective Remarks GENERAL: Well-nourished, well-developed patient. SKIN: Warm and dry. HEAD: Normocephalic. EYES: No scleral icterus. No injection or drainage. RESPIRATORY: No respiratory distress EXTREMITIES: No edema NEUROLOGICAL: No obvious focal deficit. PSYCH: sedated, answers questions appropriately. Assessment/Plan Assessment 1. Thrombocytopenia: Improving since admission. Will continue to monitor. Likely multifactorial including folate deficiency, alcohol abuse, splenomegaly. Ordered CBC for tomorrow. 2. Folate deficiency: continue folic acid 1mg PO Qdaily 3. Alcohol abuse/withdrawl: currently on CIWA protocol. Maia Ahuja MD Dec 02, 2016 11:11
[2016-12-02] MEDS: chlordiazePOXIDE 25 MG CAP PO PRN ×2 (11:57→22:46)
--- NOTE | 2016-12-02 14:21 | HHI.PR ---
Subjective Subjective Remarks Resting in the bed still in the ICU setting Remains in 4. restraints, CIWA protocol in place Patient is drowsy but knows where he is Afebrile (Landen Mancia) Review of Systems Constitutional Constitutional: Weakness Constitutional Remarks Unable to obtain ROS (Landen Mancia) Vitals/Results Vital Signs Vital Signs Date Time Temp Pulse Resp B/P (MAP) Pulse Ox O2 Delivery O2 Flow Rate FiO2 12/02/16 10:00 93 12/02/16 08:53 95 21 12/02/16 08:00 100 12/02/16 08:00 97.8 100 23 149/96 (113) 94 12/02/16 07:00 92 Room Air 12/02/16 06:00 88 12/02/16 04:00 98.2 101 23 122/84 (97) 95 12/02/16 04:00 101 12/02/16 02:00 96 12/02/16 00:00 99 12/02/16 00:00 97.9 99 23 118/75 (89) 96 12/01/16 22:00 96 12/01/16 21:51 93 Simple Mask 8.00 12/01/16 20:00 97.6 120 25 112/75 (87) 89 12/01/16 20:00 120 12/01/16 18:00 101 12/01/16 16:00 98.2 95 21 126/91 (103) 96 12/01/16 16:00 95 (Landen Mancia) CBC/BMP: 12/01/16 0450 11/30/16 2353 Imaging Remarks Last Impressions Abdomen Ultrasound 11/29/16 0000 Signed Impressions: Service Date/Time: Tuesday, November 29, 2016 09:24 - CONCLUSION: 1. No acute abnormality is identified to explain the abdominal pain. 2. Nonacute findings include hepatomegaly with steatosis and mild splenomegaly. Alberto Herrera MD Myocardial Perfusion Scan Nuc Med 11/28/16 0000 Signed Impressions: Service Date/Time: November 11:21 - CONCLUSION: 1. Focal reversal perfusion defects at stress in the anterior and lateral castillo near the base. 2. No focal wall motion abnormality with reduced EF of 57%%. RISK CATEGORY: Low (<1%% Annual Mortality Rate) Lobo Dupont MD Chest X-Ray 11/27/162016 Signed Impressions: Service Date/Time: Sunday, November 27, 2016 20:44 - CONCLUSION: 1. No acute findings. Serjio Bailey MD Current Medications Administered Medications Medications (Trade) Dose Ordered Sig/Deana Route PRN Reason Start Time Stop Time Status Last Admin Dose Admin Atorvastatin Calcium (Lipitor) 20 mg DAILY PO 11/28/16 14:15 12/02/16 09:42 Aspirin (Aspirin) 325 mg DAILY PO 11/28/16 14:15 12/01/16 09:05 Gabapentin (Neurontin) 300 mg HS PO 11/28/16 21:00 12/01/16 20:26 Quetiapine Fumarate (SEROquel) 300 mg HS PO 11/28/16 21:00 12/01/16 20:26 Folic Acid (Folate) 1 mg DAILY PO 11/29/16 09:00 12/02/16 09:42 Thiamine HCl (Vitamin B1) 100 mg DAILY PO 11/29/16 09:00 12/02/16 09:42 Metoprolol Tartrate (Lopressor) 12.5 mg Q12HR PO 11/29/16 21:00 12/02/16 09:42 Lorazepam (Ativan Inj) 1 mg Q4H PRN IV PUSH CIWA 8 - 10 11/30/16 00:15 11/30/16 18:07 Lorazepam (Ativan Inj) 2 mg Q2H PRN IV PUSH CIWA 11-14 11/30/16 00:15 12/02/16 11:57 Lorazepam (Ativan Inj) 2 mg Q1H PRN IV PUSH CIWA 15-20 11/30/16 00:15 12/02/16 03:51 Lorazepam (Ativan Inj) 2 mg Q15M PRN IV PUSH CIWA > 20 11/30/16 00:15 11/30/16 18:38 Chlorhexidine Gluconate (Chlorhexidine 2% Cloth) 3 pack DAILY@04 TOPICAL 11/30/16 04:00 12/04/16 04:01 12/02/16 04:00 Potassium Chloride 100 ml @ 50 mls/hr UNSCH PRN IV ELECTROLYTE REPLACEMENT 11/30/16 09:15 11/30/16 17:35 Chlordiazepoxide (Librium) 25 mg TID PRN PO ANXIETY 12/01/16 15:00 12/02/16 11:57 Dextrose/Sodium Chloride 1,000 ml @ 125 mls/hr Q8H IV 12/01/16 15:00 12/02/16 06:21 (Landen ManciaP) Physical Exam General General Appearance: Well Developed, Well Nourished, Comfortable (Landen Mancia MDS NURSE) Eyes Eye Exam: Pupils Equal, Sclera White (Landen Mancia. MDS NURSE) Ears & Nose Ears & Nose Exam: Nasal Mucosa [place] (Landen Mancia. MDS NURSE) Throat Throat Exam: Oral Mucosa [place] & Moist (Landen Mancia. MDS NURSE) Neck Neck Exam: Neck Supple, Trachea Midline (Landen Mancia M. MDS NURSE) Pulmonary Resp Exam: Clear Bilaterally, Breath Sounds Equal, No Distress (Landen Mancia. MDS NURSE) Cardiology CV Exam: Normal Sinus Rhythm, Good Perfusion (Landen Mancia MDS NURSE) Gastrointestinal/Abdomen GI Exam: Soft, Non-Tender, Bowel Sounds Present (Landen Mancia M. MDS NURSE) Musculoskeletal MS Exam: Joints Intact (Landen Mancia. MDS NURSE) Integumentary Skin Exam: Warm, Dry (Landen Mancia. MDS NURSE) Extremeties Extremities Exam: No Edema, Pedal Pulses Palpable (Landen Mancia M. MDS NURSE) Neurologic Neuro Exam: Awake, Moving All Extremities (Landen Mancia. MDS NURSE) VTE Prophylaxis VTE Prophylaxis Device: SCDs (Landen Mancia M. MDS NURSE) Assessment/Plan Problem List: (1) Chest pain ICD Codes: R07.9 - Chest pain, unspecified Status: Acute (2) CAD (coronary artery disease) ICD Codes: I25.10 - Atherosclerotic heart disease of [place] coronary artery without angina pectoris Status: Chronic (3) Thrombocytopenia ICD Codes: D69.6 - Thrombocytopenia, unspecified Status: Acute (4) Tobacco abuse ICD Codes: Z72.0 - Tobacco use Status: Chronic (5) Carpal tunnel syndrome ICD Codes: G56.00 - Carpal tunnel syndrome Status: Acute (6) Alcohol abuse ICD Codes: F10.10 - Alcohol abuse, uncomplicated Status: Chronic (7) COPD (chronic obstructive pulmonary disease) ICD Codes: J44.9 - Chronic obstructive pulmonary disease, unspecified Status: Chronic (8) Transaminitis ICD Codes: R74.0 - Nonspecific elevation of levels of transaminase and lactic acid dehydrogenase [LDH] Status: Acute Assessment/Plan Vital signs reviewed heart rate labile between 93 and 101, still has some tachypnea and low respiratory volumes 20-23, compensated Labs reviewed, leukopenia resolved Chest pain resolved, patient denies any heaviness s/p cardiac catheterization showing mild to moderate three-vessel disease and EF of 50%. Appreciate cardiology, for now we'll plan medical management with aspirin, beta blockers, statin History of back abuse Thrombocytopenia, history of, Alcoholism, improving, leukopenia resolved -appreciate hematology input, patient placed on folic acid, probable deficient due to alcohol use Chronic liver disease, JEROME abuse Currently on CIWA protocol, and requiring 4. restraints, patient does appear calmer today, drowsy but can answer simple questions and knows where he is Still requiring intensive care treatment regimen for his safety COPD, oxygen as needed, albuterol inhaler Tobacco abuse Alcohol abuse/ thiamine /folate , CIWA protocol, detox Requiring medical management, patient does at this point knows where he is SCDs for DVT prophylaxis PPI PUD prophylaxis D/W Dr. lynn, seen on his behalf (Landen Mancia) Assessment/Plan pt is seen & examined appears calm / wanst to go home rcv IV ativan x 1 dose today in restraints encourage po intake cont Librium/prn Ativan thiamine/folate d/c velasquez catheter' d/w landen hunt/w RN will f/u (Chaitanya Lynn MD) Problem Qualifiers (1) Chest pain: Qualified Codes: R07.9 - Chest pain, unspecified (2) CAD (coronary artery disease): Qualified Codes: I25.10 - Atherosclerotic heart disease of [place] coronary artery without angina pectoris (3) COPD (chronic obstructive pulmonary disease): Qualified Codes: J44.1 - Chronic obstructive pulmonary disease with (acute) exacerbation Landen Mancia Dec 02, 2016 14:21 Chaitanya Lynn MD Dec 02, 2016 16:54
[2016-12-02] MEDS: GABAPENTIN 300 MG CAP PO SCH (21:00)
[2016-12-02] MEDS: QUEtiapine FUMARATE 300 MG TAB PO SCH (21:35)
[2016-12-03] VITALS (14 sets, daily range): BP systolic 100–161; BP diastolic 65–98; PULSE 80–117; RESP 22–37; TEMP 97.7–98.4; O2SAT 91–100
[2016-12-03] MEDS: LORazepam 2 MG/ML VIAL IV PUSH PRN ×6 (00:25→06:59)
[2016-12-03] MEDS: CHLORHEXIDINE GLUCONATE 2 % 1 PACK (2 CLOTHS)(taper/protocol) TOPICAL SCH (04:00)
[2016-12-03 07:00] LABS: AUTOMATED NEUTROPHIL # 3.5 TH/MM3 (1.8-7.7); BASOPHIL % 0.3 % (0.0-2.0); EOSINOPHIL # 0.1 TH/MM3 (0-0.4); EOSINOPHIL % 2.3 % (0.0-4.0); HEMO FLAGS DIFF FINAL; LYMPH % 13.3 % (9.0-44.0); LYMPHOCYTE # 0.7 TH/MM3 (1.0-4.8); MEAN CORPUSCULAR HEMOGLOBIN 36.3 PG (27.0-34.0); MONO % 22.3 % (0.0-8.0); NEUT % 61.8 % (16.0-70.0); PLATELET COUNT 129 TH/MM3 (150-450); RED BLOOD COUNT 3.91 MIL/MM3 (4.50-5.90); RED CELL DISTRIBUTION WIDTH 21.6 % (11.6-17.2); WHITE BLOOD COUNT 5.6 TH/MM3 (4.0-11.0)
[2016-12-03] MEDS: ASPIRIN 325 MG TAB PO SCH (10:04)
[2016-12-03] MEDS: ATORVASTATIN 20 MG TAB PO SCH (10:04)
[2016-12-03] MEDS: THIAMINE HCL 100 MG TAB PO SCH (10:04)
[2016-12-03] MEDS: METOPROLOL TARTRATE 25 MG TAB PO SCH ×2 (10:04→21:00)
[2016-12-03] MEDS: FOLIC ACID 1 MG TAB PO SCH (10:04)
[2016-12-03] MEDS: DEXT 5%-NACL 0.45% 1000 ML INJ 1,000 ML IV SCH (10:05)
[2016-12-03] MEDS: chlordiazePOXIDE 25 MG CAP PO PRN (13:50)
--- NOTE | 2016-12-03 14:12 | HHI.PR ---
Subjective Subjective Remarks Resting in the bed still in the ICU setting Remains in 4. restraints, CIWA protocol in place Increased restlessness noted the past 24 hours requiring multiple doses of Ativan Condom catheter, tolerating well Having some hallucinations Afebrile (Candis Mancia) Review of Systems Constitutional Constitutional: Weakness Constitutional Remarks Unable to obtain ROS, knows where he is but is seeing people in the room at times according to staff (Candis Mancia) Vitals/Results Vital Signs Vital Signs Date Time Temp Pulse Resp B/P (MAP) Pulse Ox O2 Delivery O2 Flow Rate FiO2 12/03/16 06:00 87 12/03/16 04:00 98.1 103 37 100 12/03/16 04:00 103 12/03/16 02:00 117 12/03/16 00:00 98 12/03/16 00:00 97.7 98 25 95 12/02/16 22:00 87 12/02/16 20:00 95 12/02/16 20:00 98.0 95 23 123/69 (87) 98 12/02/16 19:38 99 Nasal Cannula 3.00 12/02/16 19:00 98 Nasal Cannula 3.00 12/02/16 18:00 83 12/02/16 16:00 89 12/02/16 16:00 97.7 89 35 189/102 (131) 98 (Candis Mancia) CBC/BMP: 12/03/16 0538 11/30/16 2353 Lab Results Laboratory Tests Test 12/03/16 05:38 12/03/16 11:20 White Blood Count 5.6 TH/MM3 Red Blood Count 3.91 MIL/MM3 Hemoglobin 14.2 GM/DL Hematocrit 43.0 % Mean Corpuscular Volume 110.0 FL Mean Corpuscular Hemoglobin 36.3 PG Mean Corpuscular Hemoglobin Concent 33.0 % Red Cell Distribution Width 21.6 % Platelet Count 129 TH/MM3 Mean Platelet Volume 9.4 FL Neutrophils (%) (Auto) 61.8 % Lymphocytes (%) (Auto) 13.3 % Monocytes (%) (Auto) 22.3 % Eosinophils (%) (Auto) 2.3 % Basophils (%) (Auto) 0.3 % Neutrophils # (Auto) 3.5 TH/MM3 Lymphocytes # (Auto) 0.7 TH/MM3 Monocytes # (Auto) 1.2 TH/MM3 Eosinophils # (Auto) 0.1 TH/MM3 Basophils # (Auto) 0.0 TH/MM3 CBC Comment DIFF FINAL Differential Comment Imaging Remarks Last Impressions Abdomen Ultrasound 11/29/16 0000 Signed Impressions: Service Date/Time: Tuesday, November 29, 2016 09:24 - CONCLUSION: 1. No acute abnormality is identified to explain the abdominal pain. 2. Nonacute findings include hepatomegaly with steatosis and mild splenomegaly. Alberto Hrerera MD Myocardial Perfusion Scan Nuc Med 11/28/16 0000 Signed Impressions: Service Date/Time: November 11:21 - CONCLUSION: 1. Focal reversal perfusion defects at stress in the anterior and lateral castillo near the base. 2. No focal wall motion abnormality with reduced EF of 57%%. RISK CATEGORY: Low (<1%% Annual Mortality Rate) Lobo Dupont MD Chest X-Ray 11/27/162016 Signed Impressions: Service Date/Time: Sunday, November 27, 2016 20:44 - CONCLUSION: 1. No acute findings. Serjio Bailey MD (Blanche,Candis M. SUPERVISOR FRONT) Physical Exam General General Appearance: Well Developed, Well Nourished (Blanche,Candis M. SUPERVISOR FRONT) Eyes Eye Exam: Pupils Equal, Sclera White (Noble,Candis M. SUPERVISOR FRONT) Ears & Nose Ears & Nose Exam: Nasal Mucosa [place] (BlancheCandis M. SUPERVISOR FRONT) Throat Throat Exam: Oral Mucosa [place] & Moist (Blanche,Candis M. SUPERVISOR FRONT) Neck Neck Exam: Neck Supple, Trachea Midline (Blanche,Candis M. SUPERVISOR FRONT) Pulmonary Resp Exam: Clear Bilaterally, Breath Sounds Equal, No Distress (Blanche,Candis M. SUPERVISOR FRONT) Cardiology CV Exam: Normal Sinus Rhythm, Good Perfusion (Blanche,Candis M. SUPERVISOR FRONT) Gastrointestinal/Abdomen GI Exam: Soft, Non-Tender, Bowel Sounds Present (Blanche,Candis M. SUPERVISOR FRONT) Musculoskeletal MS Exam: Joints Intact (Noble,Candis M. SUPERVISOR FRONT) Integumentary Skin Exam: Warm, Dry (Blanche,Candis M. SUPERVISOR FRONT) Extremeties Extremities Exam: No Edema, Pedal Pulses Palpable (Candis Mancia) Neurologic Neuro Exam: Awake, Moving All Extremities Neuro Remarks [facility] protocol, using 2-4 pt. restraints (Candis Mancia) VTE Prophylaxis VTE Prophylaxis Device: SCDs (Candis Mancia) Assessment/Plan Problem List: (1) Chest pain ICD Codes: R07.9 - Chest pain, unspecified Status: Acute (2) CAD (coronary artery disease) ICD Codes: I25.10 - Atherosclerotic heart disease of [place] coronary artery without angina pectoris Status: Chronic (3) Thrombocytopenia ICD Codes: D69.6 - Thrombocytopenia, unspecified Status: Acute (4) Tobacco abuse ICD Codes: Z72.0 - Tobacco use Status: Chronic (5) Carpal tunnel syndrome ICD Codes: G56.00 - Carpal tunnel syndrome Status: Acute (6) Alcohol abuse ICD Codes: F10.10 - Alcohol abuse, uncomplicated Status: Chronic (7) COPD (chronic obstructive pulmonary disease) ICD Codes: J44.9 - Chronic obstructive pulmonary disease, unspecified Status: Chronic (8) Transaminitis ICD Codes: R74.0 - Nonspecific elevation of levels of transaminase and lactic acid dehydrogenase [LDH] Status: Acute Assessment/Plan Vital signs , afebrile, labile HR, 80-117 high depending on agitation Labs reviewed, leukopenia resolved, Hold enalapril IV fluids for now patient is tolerating by mouth liquids, and is pulling at IV lines ramdomly. Chest pain resolved, patient denies any heaviness s/p cardiac catheterization showing mild to moderate three-vessel disease and EF of 50%. Appreciate cardiology, for now we'll plan medical management with aspirin, beta blockers, statin Thrombocytopenia, history of, Alcoholism, improving, leukopenia resolved -appreciate hematology input, patient placed on folic acid, probable deficient due to alcohol use Chronic liver disease, JEROME abuse Currently on CIWA protocol, and requiring 2-4. restraints, patient required multiple doses of Ativan during the early a.m. hours and was more restless, this afternoon seems to be a little, but is still having hallucinations of people in the room with him Still requiring intensive care treatment regimen for his safety COPD, oxygen as needed, albuterol inhaler Tobacco abuse Alcohol abuse/ thiamine /folate , [facility] protocol, detox SCDs for DVT prophylaxis PPI PUD prophylaxis D/W Dr. lynn, seen on his behalf Discussed with nurse (Candis Mancia) Assessment/Plan pt was agitated last night , wanted to go home ended up requiring physical/chemical restraints resting in bed/ calm & collected.oriented X3 following commands/ eating well no more agitation ok to tx to step down unit d/ c IV ativan cont librium tid ss for dc planning, possible dc home in am (Chaitanya Lynn MD) Problem Qualifiers (1) Chest pain: Qualified Codes: R07.9 - Chest pain, unspecified (2) CAD (coronary artery disease): Qualified Codes: I25.10 - Atherosclerotic heart disease of [place] coronary artery without angina pectoris (3) COPD (chronic obstructive pulmonary disease): Qualified Codes: J44.1 - Chronic obstructive pulmonary disease with (acute) exacerbation Candis Mancia Dec 03, 2016 14:12 Chaitanya Lynn MD Dec 03, 2016 17:16
[2016-12-03] MEDS: chlordiazePOXIDE 25 MG CAP PO SCH (18:14)
[2016-12-03] MEDS: QUEtiapine FUMARATE 300 MG TAB PO SCH (21:53)
[2016-12-03] MEDS: GABAPENTIN 300 MG CAP PO SCH (21:53)
[2016-12-04] VITALS (9 sets, daily range): BP systolic 88–187; BP diastolic 63–92; PULSE 84–111; RESP 13–28; TEMP 97.9–98.3; O2SAT 95–99
[2016-12-04] MEDS: CHLORHEXIDINE GLUCONATE 2 % 1 PACK (2 CLOTHS)(taper/protocol) TOPICAL SCH (04:00)
[2016-12-04] MEDS: FOLIC ACID 1 MG TAB PO SCH (08:53)
[2016-12-04] MEDS: ATORVASTATIN 20 MG TAB PO SCH (08:53)
[2016-12-04] MEDS: chlordiazePOXIDE 25 MG CAP PO SCH ×2 (08:53→13:58)
[2016-12-04] MEDS: THIAMINE HCL 100 MG TAB PO SCH (08:54)
[2016-12-04] MEDS: ASPIRIN 325 MG TAB PO SCH (08:54)
--- NOTE | 2016-12-04 14:59 | HHI.PR ---
Subjective Subjective Remarks Awake, alert, appropriate to response is Sitting up in bed eating, no cough no issues with swallowing Restraints off (Candis Mancia) Review of Systems Constitutional Constitutional: Weakness (generalized) (Candis Mancia) Eyes Eyes Remarks Tracks with his eyes, now oriented (Candis Mancia) Cardiology CV Remarks No dizziness (Candis Mancia) Musculoskeletal MS: Weakness (gradual improvement) (Candis Mancia) Neurologic Neurologic Remarks Alert oriented appropriate (Candis Mancia) Vitals/Results Vital Signs Vital Signs Date Time Temp Pulse Resp B/P (MAP) Pulse Ox O2 Delivery O2 Flow Rate FiO2 12/04/16 14:00 96 12/04/16 12:00 84 12/04/16 12:00 98.1 84 13 107/72 (84) 12/04/16 10:00 103 12/04/16 08:56 97 12/04/16 08:00 85 12/04/16 08:00 97.9 85 14 88/63 (71) 99 12/04/16 08:00 96 12/04/16 06:00 91 12/04/16 04:00 98.0 91 13 92/67 (75) 95 12/04/16 04:00 Room Air 12/04/16 04:00 91 12/04/16 02:00 111 12/04/16 00:00 98.3 110 28 187/92 (123) 95 12/04/16 00:00 110 12/04/16 00:00 96 Room Air 12/03/16 22:00 80 12/03/16 21:17 99 21 12/03/16 20:00 95 Room Air 12/03/16 20:00 98.2 92 24 106/65 (79) 95 12/03/16 20:00 92 12/03/16 18:00 97 12/03/16 16:00 94 Room Air 12/03/16 16:00 91 12/03/16 16:00 98.4 91 22 100/68 (79) 94 12/03/16 14:54 96 21 (Candis Mancia) CBC/BMP: 12/03/16 0538 11/30/16 2353 Imaging Remarks Last Impressions Abdomen Ultrasound 11/29/16 0000 Signed Impressions: Service Date/Time: Tuesday, November 29, 2016 09:24 - CONCLUSION: 1. No acute abnormality is identified to explain the abdominal pain. 2. Nonacute findings include hepatomegaly with steatosis and mild splenomegaly. Alberto Herrera MD Myocardial Perfusion Scan Nuc Med 11/28/16 0000 Signed Impressions: Service Date/Time: November 11:21 - CONCLUSION: 1. Focal reversal perfusion defects at stress in the anterior and lateral castillo near the base. 2. No focal wall motion abnormality with reduced EF of 57%%. RISK CATEGORY: Low (<1%% Annual Mortality Rate) Lobo Dupont MD Chest X-Ray 11/27/162016 Signed Impressions: Service Date/Time: Sunday, November 27, 2016 20:44 - CONCLUSION: 1. No acute findings. Serjio Bailey MD (Blanche,Candis M. LABOR TRAINING MANAGER) Physical Exam General General Appearance: Well Developed, Well Nourished, Comfortable (Icard,Candis M. LABOR TRAINING MANAGER) Eyes Eye Exam: Pupils Equal, Sclera White (Blanche,Candis M. LABOR TRAINING MANAGER) Ears & Nose Ears & Nose Exam: Nasal Mucosa [place] (Blanche,Candis M. LABOR TRAINING MANAGER) Throat Throat Exam: Oral Mucosa [place] & Moist (Icard,Candis M. LABOR TRAINING MANAGER) Neck Neck Exam: Neck Supple, Trachea Midline (Blanche,Candis M. LABOR TRAINING MANAGER) Pulmonary Resp Exam: Clear Bilaterally, Breath Sounds Equal, No Distress (Blanche,Candis M. LABOR TRAINING MANAGER) Cardiology CV Exam: Normal Sinus Rhythm, Good Perfusion (Icard,Candis M. LABOR TRAINING MANAGER) Gastrointestinal/Abdomen GI Exam: Soft, Non-Tender, Bowel Sounds Present (Icard,Candis M. LABOR TRAINING MANAGER) Musculoskeletal MS Exam: Joints Intact, Good Strength (Icard,Candis M. LABOR TRAINING MANAGER) Integumentary Skin Exam: Warm, Dry, Normal Turgor (Icard,Candis M. LABOR TRAINING MANAGER) Extremeties Extremities Exam: No Edema, Pedal Pulses Palpable (Icard,Candis M. LABOR TRAINING MANAGER) Neurologic Neuro Exam: Alert, Awake, Oriented, Speech Clear, Moving All Extremities Neuro Remarks CIWA protocol, using 2-4 pt. restraints (Candis Mancia) VTE Prophylaxis VTE Prophylaxis Device: SCDs (Blanche,Candis BOSS) Assessment/Plan Problem List: (1) Chest pain ICD Codes: R07.9 - Chest pain, unspecified Status: Acute (2) CAD (coronary artery disease) ICD Codes: I25.10 - Atherosclerotic heart disease of [place] coronary artery without angina pectoris Status: Chronic (3) Thrombocytopenia ICD Codes: D69.6 - Thrombocytopenia, unspecified Status: Acute (4) Tobacco abuse ICD Codes: Z72.0 - Tobacco use Status: Chronic (5) Carpal tunnel syndrome ICD Codes: G56.00 - Carpal tunnel syndrome Status: Acute (6) Alcohol abuse ICD Codes: F10.10 - Alcohol abuse, uncomplicated Status: Chronic (7) COPD (chronic obstructive pulmonary disease) ICD Codes: J44.9 - Chronic obstructive pulmonary disease, unspecified Status: Chronic (8) Transaminitis ICD Codes: R74.0 - Nonspecific elevation of levels of transaminase and lactic acid dehydrogenase [LDH] Status: Acute Assessment/Plan Vital signs , afebrile, a.m. blood pressure with lower systolic, now trending back up Labs reviewed, leukopenia resolved, Patient's tolerating by mouth fluids well, Chest pain resolved, no acute chest pain noted, rhythm is regular occasional PVCs s/p cardiac catheterization showing mild to moderate three-vessel disease and EF of 50%. Appreciate cardiology, for now we'll plan medical management with aspirin, beta blockers, statin Thrombocytopenia, history of, Alcoholism, improving, leukopenia resolved -appreciate hematology input, patient placed on folic acid, probable deficient due to alcohol use Chronic liver disease, JEROME abuse Initially on CIWA protocol, but patient has awakened today and is oriented, answers questions appropriately. Sitting up in bed eating heart healthy diet, no issues with swallow Doesn't remember much about the last couple of days Transfer order written for out of intensive care setting COPD, early on room air albuterol inhaler Tobacco abuse Alcohol abuse/ DTs Delirium Hallucinations, monitored in the intensive care setting with 2 to 4. restraints , until patient was coherent again. This was approximately 48 hours in duration. thiamine /folate , [place] protocol, detox SCDs for DVT prophylaxis PPI PUD prophylaxis D/W Dr. lynn, seen on his behalf Discussed with nurse Discussed with patient Monitoring BP which has stable trends this afternoon, discharge planning in process possible today or tomorrow (Candis Mancia) Assessment/Plan pt is seen & examined sitting in bed /calm & collected no problems/eager to home medically stable for d/c see [facility] f/u pcp f/u card stop drinking alcohol (Chaitanya Lynn MD) Problem Qualifiers (1) Chest pain: Qualified Codes: R07.9 - Chest pain, unspecified (2) CAD (coronary artery disease): Qualified Codes: I25.10 - Atherosclerotic heart disease of [place] coronary artery without angina pectoris (3) COPD (chronic obstructive pulmonary disease): Qualified Codes: J44.1 - Chronic obstructive pulmonary disease with (acute) exacerbation Candis Mancia Dec 04, 2016 14:59 Chaitanya Lynn MD Dec 04, 2016 16:06
[2016-12-04] MEDS ORDERED: CHLO25CA9 PO (16:10)
[2016-12-04] MEDS ORDERED: METO25TA3 PO (16:10)
[2016-12-04] MEDS ORDERED: ATOR10TA15 PO (16:10)
--- NOTE | 2016-12-04 18:32 | HHI.DS ---
Discharge Summary Admission Date Nov 30, 2016 at 02:33 Discharge Date: Dec 04, 2016 Admitting Diagnosis chest pain (1) Chest pain ICD Codes: R07.9 - Chest pain, unspecified Status: Acute (2) Thrombocytopenia ICD Codes: D69.6 - Thrombocytopenia, unspecified Status: Acute (3) CAD (coronary artery disease) ICD Codes: I25.10 - Atherosclerotic heart disease of [place] coronary artery without angina pectoris Status: Chronic (4) Alcohol abuse ICD Codes: F10.10 - Alcohol abuse, uncomplicated Status: Chronic (5) Tobacco abuse ICD Codes: Z72.0 - Tobacco use Status: Chronic (6) COPD (chronic obstructive pulmonary disease) ICD Codes: J44.9 - Chronic obstructive pulmonary disease, unspecified Status: Chronic (7) Hallucinations ICD Codes: R44.3 - Hallucinations, unspecified Diagnosis: Principal (8) Delirium ICD Codes: R41.0 - Disorientation, unspecified Diagnosis: Principal Brief History This a 46-year-old white male with significant past medical history coronary artery disease, hypertension, hyperlipidemia, daily alcohol use, COPD. Patient presented to the emergency room yesterday with complaint of chest pain associated with nausea and shortness of breath. He was initially admitted to the chest pain center where he had a stress test that was positive. Dr. Maldonado was consulted and he underwent a cardiac catheterization that showed mild to moderate three-vessel disease and EF of 50%. The recommendation is to treat medically. Patient denies any chest pain at this time, no shortness of breath. Incidentally he was noted with platelet count of 67,000, this appears to be a new finding. Patient denies any prior history of thrombocytopenia. He denies any bleeding. Hospitalist services are requested for medical management. CBC/BMP: 12/03/16 0538 11/30/16 2353 Significant Findings Laboratory Tests Test 12/03/16 05:38 12/03/16 11:20 Red Blood Count 3.91 MIL/MM3 (4.50-5.90) Mean Corpuscular Volume 110.0 FL (80.0-100.0) Mean Corpuscular Hemoglobin 36.3 PG (27.0-34.0) Red Cell Distribution Width 21.6 % (11.6-17.2) Platelet Count 129 TH/MM3 (150-450) Monocytes (%) (Auto) 22.3 % (0.0-8.0) Lymphocytes # (Auto) 0.7 TH/MM3 (1.0-4.8) Monocytes # (Auto) 1.2 TH/MM3 (0-0.9) Imaging Last Impressions Abdomen Ultrasound 11/29/16 0000 Signed Impressions: Service Date/Time: Tuesday, November 29, 2016 09:24 - CONCLUSION: 1. No acute abnormality is identified to explain the abdominal pain. 2. Nonacute findings include hepatomegaly with steatosis and mild splenomegaly. Alberto Herrera MD Myocardial Perfusion Scan Nuc Med 11/28/16 0000 Signed Impressions: Service Date/Time: November 11:21 - CONCLUSION: 1. Focal reversal perfusion defects at stress in the anterior and lateral castillo near the base. 2. No focal wall motion abnormality with reduced EF of 57%%. RISK CATEGORY: Low (<1%% Annual Mortality Rate) Lobo Dupont MD Chest X-Ray 11/27/162016 Signed Impressions: Service Date/Time: Sunday, November 27, 2016 20:44 - CONCLUSION: 1. No acute findings. Serjio Bailey MD PE at Discharge General General Appearance: Well Developed, Well Nourished, Comfortable ([place],Candis M. RESIZER OPERATOR) Eyes Eye Exam: Pupils Equal, Sclera White ([place],Candis M. RESIZER OPERATOR) Ears & Nose Ears & Nose Exam: Nasal Mucosa Gillespie (Blanche,Candis M. RESIZER OPERATOR) Throat Throat Exam: Oral Mucosa Gillespie & Moist ([place],Candis M. RESIZER OPERATOR) Neck Neck Exam: Neck Supple, Trachea Midline ([place],Candis M. RESIZER OPERATOR) Pulmonary Resp Exam: Clear Bilaterally, Breath Sounds Equal, No Distress ([place],Candis M. RESIZER OPERATOR) Cardiology CV Exam: Normal Sinus Rhythm, Good Perfusion ([place],Candis M. RESIZER OPERATOR) Gastrointestinal/Abdomen GI Exam: Soft, Non-Tender, Bowel Sounds Present (Blanche,Candis M. RESIZER OPERATOR) Musculoskeletal MS Exam: Joints Intact, Good Strength ([place],Candis M. RESIZER OPERATOR) Integumentary Skin Exam: Warm, Dry, Normal Turgor ([place],Candis M. RESIZER OPERATOR) Extremeties Extremities Exam: No Edema, Pedal Pulses Palpable ([place]anche,Candis M. RESIZER OPERATOR) Neurologic Neuro Exam: Alert, Awake, Oriented, Speech Clear, Moving All Extremities Neuro Remarks CIWA protocol, using 2-4 pt. restraints (Candis Mancia) VTE Prophylaxis VTE Prophylaxis Device: SCDs (Candis Mancia) Hospital Course Patient had multiple diagnosis noted during this hospital stay that were treated / and design and his plan of care. Vital signs were monitored every 4 and when necessary throughout hospital stay, any abnormal trends were noted and treated if warranted Labs reviewed, patient initially had leukopenia , now resolved, any other abnormals were noted, documented in treated if warranted Patient's tolerating by mouth fluids well, Chest pain was evaluated and treated , and resolved, no acute chest pain noted, rhythm is regular occasional PVCs s/p cardiac catheterization showing mild to moderate three-vessel disease and EF of 50%. Appreciate cardiology, for now we'll plan medical management with aspirin, beta blockers, statin Thrombocytopenia, history of, Alcoholism, improving, leukopenia resolved -appreciate hematology input, patient placed on folic acid, probable deficient due to alcohol use Chronic liver disease, JEROME abuse Initially on CIWA protocol, but patient has awakened today and is oriented, answers questions appropriately. Sitting up in bed eating heart healthy diet, no issues with swallow Doesn't remember much about the last couple of days, educated and discussed in detail the need to quit drinking. Transfer order written for out of intensive care setting COPD, early on room air albuterol inhaler Tobacco abuse Alcohol abuse/ DTs Delirium was noted as well as Hallucinations, monitored in the intensive care setting with 2 to 4. restraints , until patient was coherent again. This was approximately 48 hours in duration. thiamine /folate , CIWA protocol, detox SCDs for DVT prophylaxis PPI PUD prophylaxis Consultations included cardiology, medical management per hospitalist Monitoring BP which has stable trends this afternoon, discharge planning in process possible today or tomorrow pt is seen & examined per Dr. babb day of discharge sitting in bed /calm & collected no problems/eager to home medically stable for d/c see [facility] f/u pcp f/u card Instructions were given to stop drinking alcohol Pt Condition on Discharge: Stable Discharge Disposition: Discharge Home Discharge Instructions DIET: Follow Instructions for: Heart Healthy Diet Additional Diet Instructions: No alcohol use Fluid Restrictions: none Activities you can perform: Full Weight Bearing Follow up Referrals: Cardiology - 2 Weeks PCP Follow-up - 3-5 Days New Medications: Atorvastatin (Atorvastatin) 10 Mg Tab 10 MG PO HS for Cholesterol Management, #30 TAB 0 Refills Chlordiazepoxide HCl (Chlordiazepoxide HCl) 25 Mg Capsule 25 MG PO TID for Alcohol withdrawal for 3 Days, #9 CAP 0 Refills Metoprolol Tartrate (Metoprolol Tartrate) 25 Mg Tab 25 MG PO Q12HR for Chest Pain for 30 Days, #60 TAB Continued Medications: Albuterol 18 GM Inh (Ventolin Hfa 18 GM Inh) 90 Mcg/Act Aer 2 PUFF INH Q6H PRN for SHORTNESS OF BREATH, #1 INHALER 0 Refills Aspirin (Aspirin) 81 Mg Chew 81 MG CHEW DAILY, TAB 0 Refills Gabapentin (Gabapentin) 300 Mg Cap 300 MG PO HS, #30 CAP 0 Refills Quetiapine (Seroquel) 300 Mg Tab 300 MG PO HS, #30 TAB 0 Refills Candis Mancia Dec 04, 2016 18:32
== END 2016-12-04 16:45 | disposition home or self-care (01) | DRG 287 ==
LOC: NEPE 20:03 → NEDA 22:51 → NEPHCDU 11-28 00:31 → HCIS 11-28 16:14 → N04A 11-28 18:15 → HIMN 11-30 02:15 → OBSVTOIN 11-30 02:33
PROVIDERS: ADMIT Specialist; ATTEND Specialist
PROC: B2151ZZ Fluoroscopy of Left Heart using Low Osmolar Contrast (ICD-10-PCS; 2016-11-28)
PROC: B2111ZZ Fluoroscopy of Multiple Coronary Arteries using Low Osmolar Contrast (ICD-10-PCS; 2016-11-28)
PROC: 4A023N7 Measurement of Cardiac Sampling and Pressure, Left Heart, Percutaneous Approach (ICD-10-PCS; principal; 2016-11-28 14:30)
DX: I25.110 Atherosclerotic heart disease of native coronary artery with unstable angina pectoris (principal); F10.231 Alcohol dependence with withdrawal delirium; D69.59 Other secondary thrombocytopenia; D70.9 Neutropenia, unspecified; I10 Essential (primary) hypertension; E11.9 Type 2 diabetes mellitus without complications; D64.9 Anemia, unspecified; J44.1 Chronic obstructive pulmonary disease with (acute) exacerbation; Z78.1 Physical restraint status; F32.9 Major depressive disorder, single episode, unspecified; K70.9 Alcoholic liver disease, unspecified; I25.2 Old myocardial infarction; E78.5 Hyperlipidemia, unspecified; G47.30 Sleep apnea, unspecified; F41.9 Anxiety disorder, unspecified; Z98.84 Bariatric surgery status; M19.90 Unspecified osteoarthritis, unspecified site; G89.29 Other chronic pain; M54.2 Cervicalgia; F17.210 Nicotine dependence, cigarettes, uncomplicated; G56.00 Carpal tunnel syndrome, unspecified upper limb; D75.89 Other specified diseases of blood and blood-forming organs; E53.8 Deficiency of other specified B group vitamins; Z95.5 Presence of coronary angioplasty implant and graft; Z86.718 Personal history of other venous thrombosis and embolism; Z79.82 Long term (current) use of aspirin; Z23 Encounter for immunization
CPT/HCPCS: 71010; 76700; 78452; 80048; 80053; 81001; 82550; 82607; 82728; 82746; 83010; 83090; 83540; 83550; 83615; 83735; 83921; 84100; 84132; 84439; 84443; 84484; 85025; 85027; 85044; 85060; 85379; 85610; 85730; 86703; 86803; 87086; 87641; 90732; 93005; 93017; 93458; 94640; 94664; 96360; 96372; A9502; C1769; C1893; G0378; J1644; J2060; J2250; J2785; J3480; J7030; Q9967